=== PATIENT | female | born 1950 | race Caucasian/White ===

== ENCOUNTER → 2018-06-01 11:48 | Outpatient (CLI) | payer MEDICARE, OTHER, SELFPAY ==
--- NOTE | 2018-06-01 | DI.MG.S_ITS ---
BILATERAL DIGITAL SCREENING MAMMOGRAM 3D/2D WITH CAD: 06/01/2018 CLINICAL: Routine screening. Comparison is made to exams dated: 05/30/2017 mammogram, 05/29/2016 mammogram, and 05/01/2015 mammogram - [facility]. The tissue of both breasts is heterogeneously dense. This may lower the sensitivity of mammography. Current study was also evaluated with a Computer Aided Detection (CAD) system. There is 0.6 cm oval asymmetry in the left breast at 6 o'clock in the retroareolar region. No other significant masses, calcifications, or other findings are seen in either breast. IMPRESSION: INCOMPLETE: NEEDS ADDITIONAL IMAGING EVALUATION The 0.6 cm oval asymmetry in the left breast is indeterminate. Additional views with possible ultrasound are recommended. This exam was interpreted at Station ID: [id number]. NOTE: For mammograms, a report in lay terms will be sent to the patient. Approximately 15% of breast malignancies will not be visualized mammographically. In the management of a palpable breast mass, a negative mammogram must not discourage biopsy of a clinically suspicious lesion. Electronically Signed By: Ruben springer/tamara:06/01/2018 13:28:11 letter sent: Additional Imaging Needed ACR BI-RADS Category 0: Incomplete [id number]
== END ==
PROVIDERS: PCP Internal Medicine; Visit Provider Internal Medicine
DX: Z12.31 Encounter for screening mammogram for malignant neoplasm of breast (principal)
CPT/HCPCS: 77063; 77067

== ENCOUNTER → 2018-06-15 08:18 | Outpatient (CLI) | payer MEDICARE, OTHER, SELFPAY ==
--- NOTE | 2018-06-15 | DI.MG.S_ITS ---
UNILATERAL LEFT DIGITAL DIAGNOSTIC MAMMOGRAM 3D/2D WITH ADDITIONAL VIEWS: 06/15/2018 CLINICAL: Additional evaluation requested from prior study. Comparison is made to exams dated: 06/01/2018 mammogram, 05/30/2017 mammogram, and 05/29/2016 mammogram - [facility]. The tissue of left breast is heterogeneously dense. This may lower the sensitivity of mammography. There is a 0.7 cm oval equal density focal asymmetry with circumscribed margins in the left breast at 6 o'clock. No other significant masses or calcifications are seen in the breast. IMPRESSION: INCOMPLETE: NEEDS ADDITIONAL IMAGING EVALUATION Focal asymmetry in the left breast at the 6:00 position. Further evaluation is recommended with ultrasound. Following ultrasound, the patient returned to mammography for additional views with a skin marker. The focal asymmetry corresponded to a skin lesion at the 6:00 position and is benign. This exam was interpreted at Station ID: [id number]. NOTE: For mammograms, a report in lay terms will be sent to the patient. Approximately 15% of breast malignancies will not be visualized mammographically. In the management of a palpable breast mass, a negative mammogram must not discourage biopsy of a clinically suspicious lesion. Electronically Signed By: Ezio higgins/:06/15/2018 15:10:34 letter sent: Need Ultrasound ACR BI-RADS Category 0: Incomplete [id number]
--- NOTE | 2018-06-15 | DI.US.S_ITS ---
LIMITED ULTRASOUND OF LEFT BREAST: 06/15/2018 CLINICAL: Patient returns today to evaluate a focal asymmetry in the left breast. Comparison is made to exams dated: 06/15/2018 mammogram, 06/01/2018 mammogram, 05/30/2017 mammogram, 05/29/2016 mammogram, and 05/01/2015 mammogram - [facility]. Color flow and real-time ultrasound of the left breast lower aspect were performed on the areas of interest. There is 0.5 cm x 0.5 cm x 0.4 cm oval complicated cyst with a septated internal wall in the left breast at 6 o'clock in the retroareolar region. This oval complicated cyst is hypoechoic with a well-defined boundary and posterior acoustic enhancement. Color flow imaging demonstrates that there is no vascularity present. There also is 0.3 cm x 0.2 cm x 0.3 cm oval mass with a circumscribed margin in the left breast at 4 o'clock anterior depth. This oval mass is hypoechoic. Color flow imaging demonstrates that there is no vascularity present. Additionally, there is a benign 0.6 cm x 0.6 cm oval mass within the skin of the left breast at 6 o'clock in the retroareolar region. This oval mass is isoechoic. This correlates with mammography findings. IMPRESSION: PROBABLY BENIGN The 0.5 cm x 0.5 cm x 0.4 cm oval complicated cyst in the left breast at 6 o'clock in the retroareolar region is probably benign. Follow-up ultrasound in 6 months is recommended. The 0.3 cm x 0.2 cm x 0.3 cm oval mass in the left breast at 4 o'clock anterior depth is probably benign. A follow-up ultrasound in 6 months is recommended. The 0.6 cm x 0.6 cm oval mass within the skin of the left breast at 6 o'clock corresponds to a skin mole and is benign. A follow-up ultrasound in 6 months is recommended to demonstrate stability. This exam was interpreted at Station ID: [id number]. Electronically Signed By: Ezio Guzman M.D. ddgenie/:06/19/2018 11:16:38 letter sent: Followup Recommended Ultrasound BI-RADS: 3 Probably benign
== END ==
PROVIDERS: PCP Internal Medicine; Visit Provider Internal Medicine
DX: R92.8 Other abnormal and inconclusive findings on diagnostic imaging of breast (principal); N63.23 Unspecified lump in the left breast, lower outer quadrant; N60.02 Solitary cyst of left breast
CPT/HCPCS: 76642; 77065; G0279

== ENCOUNTER → 2018-09-07 12:34 | Outpatient (CLI) | payer MEDICARE, OTHER, SELFPAY ==
--- NOTE | 2018-09-07 12:36 | DI.US.S_ITS ---
PROCEDURE: US ABDOMEN COMPLETE INDICATIONS: ABD PAIN TECHNIQUE: Real-time scanning was performed of the abdominal and retroperitoneal organs, with image documentation. COMPARISON: [facility], [place], ABDOMEN COMPLETE, 07/15/2010, 15:32. FINDINGS: Liver: Liver is normal in size and homogeneous in echotexture. Gallbladder: The gallbladder wall measures 1.3 mm in diameter. No stones, sludge, pericholecystic fluid, or sonographic Trujillo sign. Biliary ducts: Intrahepatic bile ducts are non-dilated. Extrahepatic bile duct caliber measures 10.6 mm. Normal is 6-7 mm or less in diameter, or 10 mm or less post-cholecystectomy. Pancreas: Visualized portions of the pancreas are sonographically normal. Spleen: Spleen is normal in size and homogeneous in echotexture. Kidneys: Kidneys are normal in size and echotexture. Right kidney measures 10.6 cm long; left kidney measures 10.3 cm long. No hydronephrosis or nephrolithiasis. No solid masses. Aorta: Visualized aorta is normal in caliber at less than 3 cm. Iliacs: Proximal common iliac arteries are normal in caliber at less than 2.5 cm. IVC: Intrahepatic inferior vena cava is patent. Miscellaneous: No free abdominal fluid. IMPRESSION: No cholelithiasis or findings to suggest choledocholithiasis or acute cholecystitis. Dictated by: Debbie Licona M.D. on 09/07/2018 at 14:28 Approved by: Debbie Licona M.D. on 09/07/2018 at 14:29
--- NOTE | 2018-09-07 12:36 | DI.US.S_ITS ---
PROCEDURE: US PELVIC COMPLETE INDICATIONS: PELVIC PAIN TECHNIQUE: Real-time scanning was performed of the pelvic organs, with image documentation. Additional endovaginal scanning was necessary due to incomplete visualization of the adnexal and endometrial structures by transabdominal scanning. COMPARISON: None. FINDINGS: Transabdominal scanning: The kidneys were interrogated on the abdominal ultrasound performed on the same date. Endovaginal scanning: Uterus: Uterus is difficult to visualize given the large left ovarian cystic lesion that measures 5.7 x 2.2 diameters in the sagittal plane on transabdominal examination. The endometrium measures up to 7 mm in diameter. Ovaries: The right ovary is not visualized. The left ovary measures 13.1 x 11.3 x 12.3 cm. There is a 12.1 x 9.6 x 10.9 cm complex cystic mass within the left ovary. This cystic mass contains a combination of anechoic fluid, complex fluid, and lobulated soft tissue with internal vascularity along the margins of the mass. IMPRESSION: Complex cystic mass within the left ovary with lobulated soft tissue along the peripheral margins demonstrating internal vascularity. Although this finding may be associated with a large endometrioma or hemorrhagic cyst, the size and vascular soft tissue is suspicious for ovarian neoplasm. Gynecologic surgical consultation recommended. Dictated by: Debbie Licona M.D. on 09/07/2018 at 14:29 Approved by: Debbie Licona M.D. on 09/07/2018 at 14:33
[2018-09-07 14:23] LABS: Add Manual Diff / Slide Review NO; Basophils Absolute Auto 0 /uL (0-100); Basophils Percent Auto 0.7 % (0-2); Eosinophils Absolute Auto 300 /uL (0-450); Eosinophils Percent Auto 4.8 % (2-4); Hematocrit 39.1 % (36-46); Hemoglobin 12.8 g/dL (12.0-16.0); Lymphocytes Absolute Auto 2600 /uL (1100-4500); Mean Corpuscular HGB Conc 32.8 % (30-36); Mean Corpuscular Hemoglobin 30.6 PG (26-34); Mean Corpuscular Volume 93.2 fL (80-100); Monocytes Absolute Auto 500 /uL (0-900); Monocytes Percent Auto 6.6 % (3-14); Neutrophils Absolute Auto 3500 /uL (1500-7000); Neutrophils Percent Auto 49.9 % (50-75); Platelet Count 304 X10^3/uL (150-400); Red Blood Cell Count 4.19 X10^6/uL (4.0-5.2); Red Cell Distribution Width 13.8 % (11.6-14.8)
[2018-09-07 14:27] LABS: Alanine Aminotransferase 29 IU/L (9-52); Albumin 4.5 g/dL (3.5-5.0); Albumin Globulin Ratio 1.6 (1.0-2.8); Alkaline Phosphatase 66 U/L (38-126); Aspartate Aminotransferase 25 IU/L (14-36); BUN Creatinine Ratio 25.7 (6-22); Bilirubin Total 0.4 mg/dL (0.2-1.3); Blood Urea Nitrogen 18 mg/dL (7-17); Calcium 9.4 mg/dL (8.4-10.2); Carbon Dioxide 26 mmol/L (22-32); Chloride 100 mmol/L (98-107); Estimated Glomerular Filt Rate > 60.0 mL/min (>60); Globulin 2.9 g/dL (1.7-4.1); Glucose 85 mg/dL (80-110); HEMOLYSIS < 15 (0-50); Potassium 4.3 mmol/L (3.4-5.1); Sodium 138 mmol/L (137-145); Total Protein 7.4 g/dL (6.3-8.2)
== END ==
PROVIDERS: PCP Family Medicine; Visit Provider Nurse Practitioner
DX: R10.2 Pelvic and perineal pain (principal); R10.9 Unspecified abdominal pain; N83.292 Other ovarian cyst, left side
CPT/HCPCS: 36415; 76700; 76856; 80053; 85025

== ENCOUNTER → 2018-09-09 13:26 | Outpatient (CLI) | payer MEDICARE, OTHER, SELFPAY ==
[2018-09-09 14:57] LABS: Cancer Antigen 125 62 U/mL (0-35)
[2018-09-12 13:38] LABS: Human HE4 Antigen 64 pmol/L
== END ==
PROVIDERS: PCP Family Medicine; Visit Provider Specialist
DX: N83.9 Noninflammatory disorder of ovary, fallopian tube and broad ligament, unspecified (principal)
CPT/HCPCS: 36415; 86304; 86305

== ENCOUNTER 2018-10-04 09:47 | Emergency (ER) | payer MEDICARE, OTHER, SELFPAY ==
[2018-10-04 09:56] VITALS: BP 160/93; PULSE 97; RESP 20; TEMP 36.9; O2SAT 97; BMI 26.6
--- NOTE | 2018-10-04 10:05 | ED.ABDPAIN ---
HPI - Abdominal Pain General Chief Complaint: Urogenital-Female Stated Complaint: ovarian cyst,abd pain Time Seen by Provider: 10/04/18 09:53 Source: patient and family Mode of arrival: ambulatory Limitations: no limitations History of Present Illness HPI narrative: Patient states that she got up at 2:00 a.m. this morning but could urinate. She tried again several times. She has had a little dribbling but no real urine output. Patient states that she feels like she needs to urinate. She has a lot of pressure. She has had some minor problems with this pain usually has to sit for a period of time but it has been much worse today. Patient states she has a prolapsed bladder/uterus. She has been having normal stools and had a normal bowel movement this morning. She denies any fevers or chills. She denies any nausea or vomiting. He had she has a little bit of flank discomfort but that typically happens when her bladder feels full. Patient denies any burning with urination but does feel very painful when she feels like she needs to. She has not had any some frequency or urgency. She is scheduled for October 21 to have what sounds like a bladder sling as well as some ovarian cyst removed with Dr. Bhagat. Patient takes medication for hypertension, osteoporosis and dyslipidemia, she denies any other major medical issues. Denies any allergies to medications. She is accompanied by her today. Related Data Home Medications Medication Instructions Recorded Confirmed CA PANTOTHENATE/FOLIC ACID/VIT 1 tab PO Q DAY #0 02/07/12 10/01/18 (MULTIVITAMIN) [CALCIUM/VIT D] Q DAY #0 02/07/12 10/01/18 [CoQ10] 100 mg PO QDAY #0 11/21/16 10/01/18 cholecalciferol (vitamin D3) 2,000 unit PO DAILY #0 06/19/17 10/01/18 [Vitamin D3] metoprolol tartrate 25 mg tablet 25 mg PO DAILY tab 09/07/18 10/01/18 rosuvastatin 5 mg tablet 5 mg PO DAILY 09/07/18 10/01/18 Previous Rx's Medication Instructions Recorded valacyclovir 500 mg tablet 500 mg PO .COMPLEX #90 tab 10/01/17 alendronate 70 mg tablet 70 mg PO QWEEK #4 tab 07/14/18 tamsulosin [Flomax] 0.4 mg PO DAILY #7 cap 10/04/18 Allergies Allergy/AdvReac Type Severity Reaction Status Date / Time ciprofloxacin [CIPROFLOXACIN] Allergy Mild HIVES Verified 10/01/18 07:54 nitrofurantoin Allergy Mild RASH Verified 10/01/18 07:54 [NITROFURANTOIN] Penicillins [PENICILLINS] Allergy Mild RASH Verified 10/04/18 10:22 Sulfa (Sulfonamide Allergy Unknown RASH Verified 10/04/18 10:22 Antibiotics) [SULFA (SULFONAMIDE ANTIBIOTICS)] Review of Systems Review of Systems ROS Unobtainable: All systems reviewed & are unremarkable except as noted in HPI and below Constitutional Denies chills and Denies fever(s) Gastrointestinal Gastrointestinal: Reports abdominal pain (Pelvic pain), Denies melena, Denies hematochezia, Denies change in bowel habits, Denies constipation, Denies diarrhea, Denies nausea and Denies vomiting Genitourinary Reports as per HPI, Denies abnormal vaginal bleeding, Denies hematuria, Denies urinary frequency, Reports difficulty voiding, Denies dysuria, Reports prolapse symptoms (Chronically), Reports flank pain (Mild bilateral), Denies urinary incontinence, Denies urinary hesitancy and Denies urinary urgency [facility] Medical History Chronic back pain (Chronic) Fibroids (Chronic) Frequent UTI (Chronic) Hemorrhoid (Chronic) Herpes simplex type 1 infection (Chronic) Osteoarthritis (Chronic) Osteoporosis (Chronic) Prolapsed bladder (Chronic) Recurrent sinusitis (Chronic) Scoliosis (Chronic) Vision disorder (Chronic) Anemia (Resolved) Chicken pox (Resolved) Compression fracture (Resolved ~2014) Hay fever (Resolved) Measles (Resolved) Mumps (Resolved) Surgical History Ankle pain (Resolved ~1977) History of colonoscopy (Resolved) History of foot surgery (Resolved ~2006) History of cataract removal with insertion of prosthetic lens (08/11/13) History of cataract removal with insertion of prosthetic lens (09/01/13) Status post appendectomy (~08/1959) Status post sclerotherapy of varicose veins Status post sclerotherapy of varicose veins (~03/2011) Family History (Updated 09/30/18 @ 20:44 by Janell Wing) Brother Age: 68 High cholesterol Pre-diabetes Child Age: 43 Cardiomyopathy PVC (premature ventricular contraction) Hypothyroidism Child Age: 39 Back problem Father Heart disease Hypertension High cholesterol Mother Diabetes mellitus Heart disease High cholesterol Stroke Mental health problem Sister Age: 96 Autoimmune disease High cholesterol History of removal of both ovaries Fibromyalgia [place]el infection Grandfather Diabetes mellitus Grandmother Mental health problem Dementia Grandfather Cancer Social History household members: spouse Smoking Status: Former smoker alcohol intake: current substance use type: does not use Family History Brother Age: 68 High cholesterol Pre-diabetes Child Age: 43 Cardiomyopathy PVC (premature ventricular contraction) Hypothyroidism Child Age: 39 Back problem Father Heart disease Hypertension High cholesterol Mother Diabetes mellitus Heart disease High cholesterol Stroke Mental health problem Sister Age: 96 Autoimmune disease High cholesterol History of removal of both ovaries Fibromyalgia [place] infection Grandfather Diabetes mellitus Grandmother Mental health problem Dementia Grandfather Cancer Social History household members: spouse Smoking Status: Former smoker alcohol intake: current substance use type: does not use Exam Narrative Exam Narrative: GENERAL: Alert and oriented x three, well-nourished, well-appearing female in moderate distress. HEENT: Head normocephalic, atraumatic, EOMI, pupils reactive, face symmetric, moist mucous membranes NECK: Supple, full range of motion CARDIOVASCULAR: Regular rate and rhythm without murmurs, rubs or gallops. RESPIRATORY: Breath sounds equal bilaterally, no wheezes rales or rhonchi. ABDOMEN: Soft, Patient does feel quite full and is tender suprapubically. Nontender elsewhere. Normoactive bowel sounds all 4 quadrants. No guarding or rebound, rigidity, no mass : No CVA tenderness EXTREMITIES: Normal range of motion, no clubbing or edema. Neurovascularly intact NEUROLOGICAL: Cranial nerves II through XII grossly intact. Moving all extremities SKIN: Warm, dry, no petechiae, no rashes or lesions. Initial Vital Signs Initial Vital Signs: Vital Signs Temperature 98.4 F 10/04/18 09:56 Pulse Rate 97 H 10/04/18 09:56 Respiratory Rate 20 10/04/18 09:56 Blood Pressure 160/93 H 10/04/18 09:56 Pulse Oximetry 97 10/04/18 09:56 Course Orders Ordered: ED Orders 10/04/18 10:05 Urine Microscopic Stat Vital Signs - 8 hr 10/04/18 09:56 10/04/18 10:46 Temperature 98.4 F Pulse Rate 97 H 78 Respiratory Rate 20 18 Blood Pressure 160/93 H 152/87 H Pulse Oximetry 97 96 MDM - Abdominal Pain Lab Data Attestation: I reviewed the patient's lab results. Lab Results 10/04/18 Range/Units 10:05 Urine RBC None seen (0-5/HPF) Urine WBC None seen (0-5/HPF) Urine Bacteria None seen (None) Ur Culture Indicated? Cult not indicated Point of care testing: Urine Dip Bedside Urine Glucose Negative Bedside Urine Bilirubin - Negative Bedside Urine Ketone - Negative Urine Specific Letha 1.015 Bedside Urine Occult Blood - Negative Bedside Urine pH 6.0 Bedside Urine Protein - Negative Bedside Urine Urobilinogen - Negative Bedside Urine Nitrite - Negative Bedside Urine Leukocytes - Negative Esterase MDM Narrative Medical decision making narrative: Dolan catheter was placed in the room patient had immediate relief with urine output. Patient had an output of amost 1000cc. Patient feels much better. We discussed if she continues to have issues with urinary retention even after surgery she definitely needs further workup. Urine was sent for microscopic after point of care urine was negative Patient has follow-up with Dr. Bhagat. Encouraged to contact her but also given referral for Urology. Patient offered [facility] urology but prefers to have a more local Urology through [facility]. Patient given prescription for Flomax take for the next week she was has to started today. She occasionally has constipation but not recently. We did discuss a stool softener if she is having any, patient was given Education for her catheter. We also discussed reasons to return to the emergency department signs and symptoms to watch for. Patient was comfortable with this plan. Discharge Plan Departure Patient Disposition: Home Clinical Impression: Acute urinary retention Discharge Date/Time: 10/04/18 10:49 Interventions: ED Discharge Assessment Last Done: 10/04/18 10:46 Instructions: How to Care for Your Dolan Catheter -- Female, DI for Urinary Retention in Women Activity Restrictions/Additional Instructions: Follow-up with Dr. Bhagat and Urology in the 5-7 days. Call for an appointment. Take Flomax once daily until gone. You may continue home medications as prescribed. Return to the emergency department for fevers greater than 100.4 F, worsening abdominal pain, persistent vomiting, back or flank pain, if you are having any difficulty with urine output from the Dolan catheter, if it seems block door there is no urine output or if is very dark or has large blood clots. Prescriptions: New tamsulosin [Flomax] 0.4 mg capsule 0.4 mg PO DAILY Qty: 7 RF: 0 No Action CA PANTOTHENATE/FOLIC ACID/VIT (MULTIVITAMIN) 1 tab PO Q DAY Qty: 0 RF: 0 [CALCIUM/VIT D] Q DAY Qty: 0 RF: 0 [CoQ10] 100 mg PO QDAY Qty: 0 RF: 0 cholecalciferol (vitamin D3) [Vitamin D3] 2,000 UNIT capsule 2,000 unit PO DAILY Qty: 0 RF: 0 valacyclovir 500 mg tablet 500 mg PO .COMPLEX Qty: 90 RF: 0 alendronate [Fosamax] 70 mg tablet 70 mg PO QWEEK Qty: 4 RF: 0 rosuvastatin 5 mg tablet 5 mg PO DAILY RF: 0 metoprolol tartrate 25 mg tablet 25 mg PO DAILY RF: 0 Referrals: Asha Crenshaw MD [Non-Staff] - Sanjuana Paulson ARNP [Primary Care Provider] -
[2018-10-04 10:17] LABS: Bacteria Urine None Seen; RBC Urine None Seen (0-5/HPF); WBC Urine None Seen (0-5/HPF)
[2018-10-04 10:32] LABS: Culture Indicated Urine Cult Not Indicated
[2018-10-04 10:46] VITALS: BP 152/87; PULSE 78; RESP 18; O2SAT 96
--- NOTE | 2018-10-04 10:46 | PC.NURSE ---
Education provided on catheter care and how to empty, clean and change from large overnight bag to daytime leg bag.
== END 2018-10-04 10:49 | disposition home or self-care (01) ==
PROVIDERS: Emergency Provider Emergency Medicine; PCP Nurse Practitioner
DX: R33.8 Other retention of urine (principal)
CPT/HCPCS: 51701; 51798; 81003; 81015; 99283

== ENCOUNTER 2018-10-16 06:35 | Inpatient (IN) | payer MEDICARE, OTHER, SELFPAY ==
[2018-09-23 08:31] VITALS: BMI 26.4
[2018-10-14] MEDS: methylPREDNISolone 125 MG/2 ML VIAL IV (12:30)
[2018-10-16] VITALS (17 sets, daily range): BP systolic 114–145; BP diastolic 55–82; PULSE 73–114; RESP 12–28; TEMP 36.1–37.3; O2SAT 94–99; BMI 26.4
--- NOTE | 2018-10-16 | PATH_ITS ---
[place] Accession Number: [id number] . 01 Material submitted: . TUBE/OVARY - RIGHT TUBE/OVARY, LEFT TUBE/OVARY . 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 Contralateral ovary with no evidence of neoplasm. Bilateral fallopian tubes with simple benign paratubal cysts. Negative for invasive malignancy. BFI10/21/2018 . 02 Comment: As part of routine quality lab assoc, Dr. 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 . 02 Electronically signed: . Hawk Prieto MD, PhD, Pathologist NPI- [id number] . 01 Gross description: . Received in formalin, labeled right tube and ovary, left tube + ovary, is an ovary (1.5 x 0.8 x 0.6 cm) with an attached fimbriated fallopian tube (length-6.5 cm, diameter-0.3 cm) and an opened ovarian cyst (10.8 x 8.3 x 0.6 cm) with an attached fimbriated fallopian tube (length-5.5 cm, diameter-0.3 cm). The ovary has vital-yellow smooth flat serosa and dimas-white solid firm parenchyma with corpus albicans identified. The ovarian cyst has vital-pink smooth shiny flat serosa. The lining is vital-white and predominantly covered in dimas-white spongy tissue. No normal ovarian parenchyma is identified. The fallopian tubes have vital-pink and dimas smooth shiny serosa and dimas unremarkable lumens. Turbid brown fluid is mixed with the formalin in the container. Section code: (A1) ovary, business center representative serial sections; (A2) attached fallopian tube, business center representative serial sections; (A3) fimbria, bivalved, entirely submitted; (A4-A8) ovarian cyst, business center representative serial sections; (A9) attached fallopian tube, business center representative serial sections; (A10) fimbria bivalved, entirely submitted. Note: Per the requisition, this is a split sample with tissue sent to cytology for analysis. ([id number]) /MRV . 02 Pathologist provided ICD-10: D39.10 . 02 CPT . 494052 Performed at: [address] [facility] [address], [place], [place] [id number] MD Ezio Llanos MD Phone: [phone] Performed at: 02 [facility] [address] [place], [place] [id number] MD Arpita Aguirre MD Phone: [phone]
--- NOTE | 2018-10-16 07:24 | PM.PREOP ---
Pre-operative Note Interval Note History & Physical reviewed/Exam performed by Physician: Yes Changes to H&P: No
[2018-10-16] MEDS: LACTATED RINGERS 1,000 ML 100 ML IV ×4 (07:25→22:44)
--- NOTE | 2018-10-16 07:30 | PM.PREOP ---
Pre-operative Note Interval Note History & Physical reviewed/Exam performed by Physician: Yes Changes to H&P: Yes H&P completed within 30 days and has changed as indicated here:: Patient with urinary retention had Dolan placed in the emergency room 10 days ago
--- NOTE | 2018-10-16 07:44 | SUR.PREOP ---
Dr Bhagat aware of pts allergy history to PCN. Elected to move forward with Ancef 2gm IV for procedure.
[2018-10-16] MEDS: CEFAZOLIN 2 GM/100 ML FROZ.PIGGY IV (07:48)
--- NOTE | 2018-10-16 08:16 | SUR.OPER ---
Lithotomy on padded OR bed, head on pillow, arms secured on padded arm boards at <90 degrees abduction. Legs secured in padded yellow fins stirrups.
[2018-10-16] MEDS: BUPIVACAINE 0.5% W/ EPI (PF) VIAL 30 ML INJ (08:26)
--- NOTE | 2018-10-16 08:31 | PATH_ITS ---
Note [facility] Accession Number: [id number] TESTS RESULT FLAG UNITS REF RANGE LAB Clinician Provided Cytology Information No. of containers..01 Other (Miscellaneous) 01 PELVIC FLUID DIAGNOSIS: 02 PELVIC FLUID INCONCLUSIVE. THIS INTERPRETATION INCLUDES EVALUATION OF A CELL BLOCK. SHEETS OF ATYPICAL CELLS, FAVOR REACTIVE MESOTHELIAL ORIGIN. IMMUNOHISTOCHEMISTRY STUDIES PENDING; RESULTS WILL BE REPORTED AN ADDENDUM. Pathologist ICD10: 02 N83.202 FINAL DIAGNOSIS: Pelvic Fluid (Cytospin Slide and Cell Block Section): Negative for malignant cells. Reactive mesothelial cells present by immunohistochemistry studies. . COMMENT: Immunohistochemistry stains are performed with the following results. . RESULTS: Calretinin: Scattered cells positive. WT1: Positive. Jonny-EP4: Negative. CK7: Positive. CYRUS: Positive. P40: Negative. PAX8: Negative. . The atypical cells are immunoposiive for WT1, CK7, and CYRUS, with scattered cells immunopositive for calretinin. The atypical cells are immunonegative for Jonny-EP4, p40 and PAX8. These findings support a mesothelial origin for these cells groups. The control tissue stained appropriately. . * This test was developed and its performance characteristics determined by [facility]. It has not been cleared or approved by the U.S. Food and Drug Administration. The FDA has determined that such clearance or approval is not necessary. This test is used for clinical purposes. It should not be regarded as investigational or for research. MRV/10/23/2018 Addendum Electronically Signed by Lilly Pillai MD, Pathologist 02 Lilly Pillai MD, Pathologist NPI- [id number] Josep Pink, Electronics Utility Worker ([facility]) 01 10 CC, YELLOW, CLEAR /LCS FLAG LEGEND: L-Low Normal,H-High Normal,LL-Alert Low,HH-Alert High <-Panic Low,>-Panic High,A-Abnormal,AA-Critical Abnormal Performed at: 01 =Z [facility] [address], [place] [address] Ezio Llanos MD, 02 [facility] [place] [id number] [place] [id number] Arpita Aguirre MD, Specimen Comment: A duplicate report has been generated due to demographic updates. Performed at: 01 [facility] [address], [place], [place] [id number] MD Ezio Llanos MD Phone: [phone]
--- NOTE | 2018-10-16 08:37 | SUR.OPER ---
Pt. came into OR with Dolan in, then Dr. Bhagat replaced it with a new Dolan on the middle of procedure.
[2018-10-16] MEDS: SODIUM CHLORIDE 0.9% FLUSH 10 ML IV (09:15)
--- NOTE | 2018-10-16 10:41 | PM.OP.1 ---
Operative Date/Time/Diagnoses Date of procedure: 10/16/18 Time of procedure: 10:41 Pre-op diagnosis: Large ovarian cyst and symptomatic partial uterovaginal prolapse Post-op diagnosis: same Procedure & Clinicians Procedure: Laparoscopy with bilateral salpingo-oophorectomy, anterior and posterior repair with sacrospinous ligament fixation. Same procedure as scheduled: Yes Indications: Large ovarian cyst did appear to be causing pelvic pain and urinary retention. Patient with symptomatic uterovaginal prolapse cystocele predominant. Surgeon: Karen Bhagat Click Yes if Unassisted: Yes Anesthesia Type: General Operative Notes Findings: Large benign-appearing left ovarian cyst that had over a 1000 cc of yellow brown thick fluid, normal uterus right tube and ovary. Normal bowel surface. Normal liver edge. No scar tissue or internal hernias. No evidence of carcinoma. Closure Type: primary Specimen(s): other (Bilateral tubes and ovaries) Applied: catheter and other (Vaginal packing) Estimated Blood Loss (mL): 50 Blood products transfused: none Procedure in detail: Patient was brought to the operating room where she was [facility] stirrups and prepped and draped in the usual sterile fashion. A check system was reviewed prior to the beginning of the case. Pulsatile stockings were in place and functional throughout the case. Warming was in place. 2 g of Ancef were in prior to beginning of the case. A Dolan catheter was placed. The areas of the trocars on the abdomen were injected with 0.5% Marcaine with epinephrine. An incision was made in the umbilicus and the incision carried down the fascial layer with blunt dissection. The fascia was incised transversely and held with 0 Vicryl suture. The perineum was entered bluntly and the Brown cannula was placed in the abdomen and the abdomen insufflated with CO2. 5 mm trocars were placed in right left lower quadrant under direct visualization with no damage to internal structures. Cell washings were obtained and sent for cytology. The left infundibulopelvic ligament was cauterized with the PK generator. Sequential bites taken along the broad ligament. The tube and utero-ovarian ligament were cauterized and cut freeing the left tube and ovary intact. The same procedure was performed on the right freeing the right tube and ovary which were brought up intact through the Brown cannula. The large Endo-Catch bag was placed in the abdomen and the left tube and ovary were placed in the bag and brought up to the umbilical incision. The fluid was drained from the cyst, approximately a 1000 cc of yellow brown thick fluid. The bag was removed with the cyst and remaining fluid without spillage of any fluid into the abdomen. The abdomen was irrigated adequate hemostasis was noted. The fascial layer of the umbilical incision was closed with 0 Vicryl suture x2. The skin was closed with 4 0 Monocryl. The procedure was switched to vaginal. A dilute solution of 1% lidocaine with epinephrine was injected over this cystocele. An incision was made over the cystocele and the incision dissected laterally. A pursestring suture was used to decrease the caliber of the cystocele with 2-0 Vicryl suture. Plicating sutures were made over the cystocele. A small amount of the vaginal excessive tissue was removed with scissors. The incision was closed with 2-0 Vicryl suture. The area over the rectocele was injected with a dilute solution of 1% lidocaine with epinephrine. An incision was made over the rectocele and enterocele with the scalpel. The dissection was undertaken laterally. Prolene suture with the Capio passer was placed through the uterosacral ligament on the right side and sutured to the underside of the cervix. After checking the suture was possibly through the rectum so the suture was removed and replaced. 0 Vicryl suture was used to plicate over the rectocele. A finger was placed in the rectum to be sure there were no sutures placed through the rectal mucosa. The uterosacral suture was tightened down and the vaginal incision was closed with 2-0 Vicryl suture. Vaginal packing was placed in the vagina and the Dolan left in place. Counts of instruments and sponges were correct. The patient went to recovery room in good condition. Complications: none Condition: stable Disposition: observation Plan for aftercare: Vaginal packing will be left in for 6 hours. Will be evaluated for removal and if able to urinate and feels well will to be discharged home later today otherwise tomorrow.
[2018-10-16] MEDS: MEPERIDINE 100 MG/ML INJ 25 MG IV (11:13)
[2018-10-16] MEDS: fentaNYL 100 MCG/2 ML INJ 50 MCG IV (11:16)
[2018-10-16] MEDS: ONDANSETRON 4 MG/2 ML INJ IV (11:23)
[2018-10-16] MEDS: RACEPINEPHRINE 0.5 ML NEB INH (12:25)
--- NOTE | 2018-10-16 12:30 | SUR.PHASEI ---
Pt transferred to room 210 via bed with all belongings. Report called to ELMER Aponte prior to transfer. Pt's last vital signs and assessment stable; see flowsheet documentation for details. Upon arrival to room 210 pt was awake and did not appear to be in distress. Her vital signs were stable, but she began to c/o nausea. Pt's Mane was at the bedside, but the floor RN Fay was not present. This RN left the room to get floor RN. Pt's came running from the room saying that the pt couldn't breath. Upon arrival to the room the pt was dyspneic with audible stridor and was in distress. Pt's HR was in the 120s and irregular to palpation. 02 Sats in the 70s; 6 L NC applied. Rapid response called. RT and MD to bedside. Acute episode resolved spontaneously within a few minutes. PT described prior to the episode she felt tingling in her feet, a wave of nausea, and the difficulty breathing. While RT and MD at bedside pt experienced another episode. MD orders given to RT for respiratory treatment. MD and RT left the room. PT experienced another episode prior to respiratory treatment arriving. Rapid respose called again. RT to bedside with treatment. MD to bedside; 125 mg IV solumedrol ordered and given. Rapid response team RN assumed care of pt at the bedside.
--- NOTE | 2018-10-16 12:53 | PM.CN ---
History of Present Illness Date Patient Seen: 10/16/18 Chief complaint: [id number] PELVIC *OPB* Reason for consult: postop stridor Requesting provider: Karen Bhagat Narrative: Patient is a 68-year-old female status post elective laparoscopic bilateral salpingo-oophorectomy, anterior and posterior repair with ligament fixation. Shortly after arrival to the floor, patient developed acute stridor but which resolved on its own. Subsequently she had 2 more episodes of stridor within a short period of time. Second episode was treated with racemic epinephrine nebulizer and 3rd episode was treated with 125 mg IV Solu-Medrol. During these episodes patient appeared acute anxious, hypertensive and tachycardic but with definite stridorous breath sounds. She stated her throat was feeling scratchy or swollen. Also has been complaining of some tingling in her distal lower extremities. Also had received dose of Demerol in the recovery room for tremors. Patient is on rosuvastatin and metoprolol succinate daily which she took usual doses yesterday evening. She denies history of cardiac disease, asthma or COPD. EKG after 3rd stridor episode showed sinus tachycardia, PVC, mild likely rate related ST depressions in V3 to V6. [facility] Medical History (Updated 10/06/18 @ 08:41 by Yuliana Horan RN) Cystocele (Acute) Rectocele (Acute) Chronic back pain (Chronic) Fibroids (Chronic) Frequent UTI (Chronic) Hemorrhoid (Chronic) Herpes simplex type 1 infection (Chronic) Osteoarthritis (Chronic) Osteoporosis (Chronic) Prolapsed bladder (Chronic) Recurrent sinusitis (Chronic) Scoliosis (Chronic) Vision disorder (Chronic) Anemia (Resolved) Chicken pox (Resolved) Compression fracture (Resolved ~2014) Hay fever (Resolved) Measles (Resolved) Mumps (Resolved) Surgical History Ankle pain (Resolved ~1977) History of colonoscopy (Resolved) History of foot surgery (Resolved ~2006) History of cataract removal with insertion of prosthetic lens (08/11/13) History of cataract removal with insertion of prosthetic lens (09/01/13) Status post appendectomy (~08/1959) Status post sclerotherapy of varicose veins Status post sclerotherapy of varicose veins (~03/2011) Family History Brother Age: 68 High cholesterol Pre-diabetes Child Age: 43 Cardiomyopathy PVC (premature ventricular contraction) Hypothyroidism Child Age: 39 Back problem Father Heart disease Hypertension High cholesterol Mother Diabetes mellitus Heart disease High cholesterol Stroke Mental health problem Sister Age: 96 Autoimmune disease High cholesterol History of removal of both ovaries Fibromyalgia [place] infection Grandfather Diabetes mellitus Grandmother Mental health problem Dementia Grandfather Cancer Social History household members: spouse Smoking Status: Former smoker alcohol intake: current substance use type: does not use Social History household members: spouse Smoking Status: Former smoker alcohol intake: current substance use type: does not use Meds Home Medications Medication Instructions Recorded Confirmed Type calcium carb-D3-mag [id number] 500 mg PO DAILY #0 02/07/12 10/16/18 History multivitamin 1 cap PO DAILY #0 02/07/12 10/16/18 History coenzyme Q10 100 mg PO DAILY #0 11/21/16 10/16/18 History cholecalciferol (vitamin D3) 2,000 unit PO DAILY #0 06/19/17 10/16/18 History [Vitamin D3] valacyclovir 500 mg tablet 500 mg PO .COMPLEX #90 tab 10/01/17 10/16/18 Rx alendronate 70 mg tablet 70 mg PO QWEEK #4 tab 07/14/18 10/16/18 Rx rosuvastatin 5 mg tablet 5 mg PO DAILY 09/07/18 10/16/18 History metoprolol succinate 25 mg PO DAILY 10/15/18 10/15/18 History Allergies Allergy/AdvReac Type Severity Reaction Status Date / Time Penicillins [PENICILLINS] Allergy Mild RASH Verified 10/16/18 07:14 Sulfa (Sulfonamide Allergy Unknown RASH Verified 10/16/18 07:14 Antibiotics) [SULFA (SULFONAMIDE ANTIBIOTICS)] Review of Systems Review of Systems All systems reviewed & are unremarkable except as noted in HPI and below Exam Vital Signs (past 8 hours): - 10/16/18 07:24 10/16/18 10:29 10/16/18 10:34 Temperature 97.3 F L 97.0 F L Pulse Rate 83 86 86 Respiratory Rate 15 14 15 Blood Pressure 133/81 135/64 139/70 Pulse Oximetry 95 96 94 10/16/18 10:39 10/16/18 10:44 10/16/18 10:59 Temperature 97.5 F L Pulse Rate 82 83 75 Respiratory Rate 16 15 12 Blood Pressure 138/73 137/65 131/71 Pulse Oximetry 94 98 94 10/16/18 11:14 10/16/18 11:25 10/16/18 11:40 Temperature 98.4 F Pulse Rate 73 81 77 Respiratory Rate 18 14 13 Blood Pressure 145/72 H 123/70 129/55 L Pulse Oximetry 95 99 99 10/16/18 11:45 10/16/18 12:50 Temperature 98.0 F Pulse Rate 84 91 H Respiratory Rate 12 16 Blood Pressure 131/69 144/82 H Pulse Oximetry 99 96 Oxygen Delivery Method Room Air Oxygen Flow Rate 2 Narrative Exam Narrative: General: Alert anxious appearing cooperative female with stridor HEENT: Pupils equal. No swelling of the face, lips or tongue Neck: No soft tissue swelling, trachea midline Lungs: Even breath sounds bilaterally, No wheezing Heart: Tachycardic with regular rhythm, no murmur Abdomen: Nondistended, soft Extremities: No edema Neurological: Alert and oriented, nonfocal Skin: No hives or other rash Assessment & Plan Assessment & Plan narrative: This is a 68-year-old female status post major gynecological surgery under general anesthesia who developed episodes of postop stridor. 1. Stridor -possibly related to endotracheal tube placement, patient without hives to suggest an anaphylactic reaction -received racemic epi x1 and Solu-Medrol 125 mg IV x1 -EKG: Sinus tachycardia, PVC, mild likely rate related ST depression V3 to V6 -received metoprolol succinate 25 mg x1 for acute hypertension and tachycardia -continue home meds of metoprolol succinate ER 25 mg HS and rosuvastatin 5 mg HS -repeat racemic epinephrine as needed for recurrent stridor -transfer to ICU for closer monitoring -CBC, troponin pending
[2018-10-16] MEDS: METOPROLOL ER 25 MG TABLET PO (13:03)
[2018-10-16 13:10] LABS: Troponin I < 0.012 ng/mL (0.01-0.034)
--- NOTE | 2018-10-16 13:25 | PC.NURSE ---
received pt from floor s/p gyne surgery with stridorous breathing- she had received iv solumedrol and racemic epi for this stridor- did have 12 lead ekg prior to transfer to ICU- she is alert/oriented and rates pain at a 2/10, lap incision x 3 cdi- NSR with occ PVC. room air spo2 96% , LR infusing
--- NOTE | 2018-10-16 13:41 | PC.NURSE ---
1153 Pt to floor via bed from ACCOUNT SOLUTIONS ANALYST Anushka and notified this RN that she was ready to transfer Pt into Acute Care. During hand-off report Pt's breathing became stridorous and Pt stated she could not breathe. Pt Spouse-Mane was present in the room for this event. Rapid Response was called and attended by Dr. Tan, RT, REGIONAL ACCOUNT EXECUTIVE-all other occurances and sequence of events are documented on the Rapid Response form. Dr. Cantu and Dr. Bhagat were also present in the room and it was agreed upon that the Pt should be transferred to the ICU for closer observation. Pt had 3 total events of stridor and was given solumedrol and racemic epinephine per Dr. Tan. Pt was transferred to ICU with Spouse and all belongings.
[2018-10-16] MEDS: HYDROCODONE/ACET 5/325 TABLET 2 TAB PO (14:59)
--- NOTE | 2018-10-16 16:05 | CM.DANOTE ---
Discharge Planning/Care Management DCP: assessment: case received, EMR reviewed and discussed in Team Rounds. Pt is a 68 year old female who admitted this morning for a planned gynecological surgery: surgeon: Dr. Bhagat. Payer: Medicare and [employer]. PCP: Sanjuana Paulson. Dr. Bhagat noted in the op report that she expected pt would recover after a few hours and go home later this evening. Pt arrived to room 210 after this surgery and with Rapid Response called x 2 for post op stridor: pt with a transfer to the ICU setting and is now in ICU 106. Hospitalist team is consulting, Dr. Tan saw pt and his note is available now. UR RN Ezio reviewed admission status during this process and confirms INPT admission status: 10/16. P: see pt tomorrow to continue the d/c planning assessment process and follow accordingly. CM Discharge Assessment Start: 10/16/18 16:03 Freq: Status: Active Protocol: Document 10/16/18 16:04 ITV (Rec: 10/16/18 16:05 ITV [id number]) Discharge Planning Assessment Advance Directives? Yes: Health Care Directive; DPOA Advance Directives on File Yes History Provided By Medical Record Prior Living Arrangements House Household Members spouse Review Status In Process Pre-Anesthesia Assessment Start: 09/23/18 08:31 Freq: Status: Complete Protocol: Document 09/23/18 08:31 CAB (Rec: 09/23/18 08:40 CAB [id number]) Pre-Anesthesia Assessment Patient Information Reviewed Via Chart Review Primary Care Provider Sanjuana Paulson Medical Clearance Received Yes Specialist Seen Investment Banking Manager Primary Language Beninese Hemodialysis Rn Required No Height 166.37 cm Weight 73.028 kg Body Mass Index (BMI) 26.4 Hx Anesthesia Reactions No Anesthesia Review Requested No Contracting Engineer No alcohol intake current alcohol intake frequency 0-2 drinks per day Smoking Status Former smoker how long ago did patient quit smoking Quit 1973 Substance Use Type does not use Pain Present Pain Reported Comment Abdominal Patient is completely paralyzed or No completely immobile Mental Status Oriented to own ability Is patient on oxygen? No Hx Sleep Apnea No Currently Taking a Beta Jose Yes: Metoprolol Anti-Coagulant Therapy No Has a Binder Cutter Hand No Cardiac Testing No Hx Pacemaker/ICD No Pacemaker Rep Required? No Cardiac Clearance Received Not Applicable dysphagia No Genitourinary Symptoms Change in Urinary Stream Difficulty Urinating Urinary Catheter Present No Hx Urinary Self Catheterization No Diabetes No Patient No Lactating No Presence of External or Internal Medical Yes: Bilateral eye lens Devices Marital Status Lives With spouse Patient Discharge Plan Description Return Home Health Care Proxy/Next of Kin Mane () Emergency Contact Name Mane () Advance Directives? Yes Advance Directives on File Yes Power of Academic Advisement Director Yes Power of Academic Advisement Director Name Mane ()
[2018-10-16] MEDS: DOCUSATE 250 MG CAPSULE PO (20:32)
--- NOTE | 2018-10-16 22:04 | PC.NURSE ---
2200- Patient is resting quietly in bed. No distress noted. Patient does desat while sleeping using 2l cannula for sleep. Patient denies pain. Voiding clear yellow urine. VS all wnl. No stridor this shife. Student nurse assessment reviewed and verified by this RN.
[2018-10-17] VITALS: BP 104/49; PULSE 75; RESP 16; TEMP 37.5; O2SAT 94
[2018-10-17] MEDS: HYDROCODONE/ACET 5/325 TABLET 2 TAB PO ×2 (01:50→06:23)
[2018-10-17 05:00] VITALS: BP 107/55; PULSE 72; RESP 18; TEMP 36.9; O2SAT 94
[2018-10-17 05:24] LABS: Add Manual Diff / Slide Review NO; Basophils Absolute Auto 0 /uL (0-100); Basophils Percent Auto 0.2 % (0-2); Eosinophils Absolute Auto 0 /uL (0-450); Hematocrit 31.2 % (36-46); Hemoglobin 10.8 g/dL (12.0-16.0); Lymphocytes Absolute Auto 1300 /uL (1100-4500); Lymphocytes Percent Auto 15.1 % (25-40); Mean Corpuscular HGB Conc 34.7 % (30-36); Mean Corpuscular Hemoglobin 32.1 PG (26-34); Mean Corpuscular Volume 92.6 fL (80-100); Monocytes Absolute Auto 500 /uL (0-900); Neutrophils Absolute Auto 6700 /uL (1500-7000); Neutrophils Percent Auto 78.7 % (50-75); Platelet Count 265 X10^3/uL (150-400); Red Blood Cell Count 3.36 X10^6/uL (4.0-5.2); Red Cell Distribution Width 13.6 % (11.6-14.8); White Blood Cell Count 8.5 X10^3/uL (4.5-11.0)
--- NOTE | 2018-10-17 08:49 | PC.NURSE ---
asher dc'd and oz dc'd per Dr. Bhagat. pt up ambulating in ICU halls. slight dizziness when first OOB. ate breakfast without nausea
[2018-10-17 09:00] VITALS: BP 133/72; PULSE 75; RESP 16; TEMP 36.8; O2SAT 94
[2018-10-17] MEDS: METOPROLOL ER 25 MG TABLET PO (09:14)
[2018-10-17] MEDS: DOCUSATE 250 MG CAPSULE PO (09:14)
--- NOTE | 2018-10-17 11:21 | PM.DS.1 ---
History of Present Illness Date Patient Seen: 10/17/18 Time Patient Seen: 11:21 Chief complaint: [id number] PELVIC *OPB* Narrative: Patient was admitted for laparoscopic BSO for large right ovarian cyst and anterior and posterior repair with sacrospinous ligament fixation for symptomatic partial uterovaginal prolapse cystocele predominant Discharge Providers Date of admission: 10/16/18 06:35 Discharge Date: 10/17/18 Primary care physician: DONNIE Jara Consults: 10/16/18 12:31 Consult to Hospitalist Service Routine Comment: Consulting Provider: [facility] Reason for consultation: airway constriciton Has provider been notified: Yes Discharge provider: Karen Bhagat MD Summary Discharge Diagnosis: Large benign-appearing right ovarian cyst, cystocele and rectocele with mild uterine prolapse. Patient with episodes of stridor postoperative that required epinephrine nebulizer and 125 mg of IV Solu-Medrol with no further complications likely complication from endotracheal tube Exam Vital Signs (past 8 hours): - 10/17/18 05:00 10/17/18 09:00 Temperature 98.5 F 98.3 F Pulse Rate 72 75 Respiratory Rate 18 16 Blood Pressure 107/55 L 133/72 Pulse Oximetry 94 94 Oxygen Delivery Method Nasal Cannula Oxygen Flow Rate 2 Narrative Exam Narrative: Patient's lungs are clear to auscultation percussion. Heart is regular rate and rhythm no S3-S4 or murmurs. Abdomen is soft, nondistended, not significantly tender. Incisions are clean dry and intact with some ecchymosis around the umbilical trocar site. Vaginal packing was removed without difficulty. She has minimal vaginal bleeding. She passed her bladder trial after removal of her Dolan catheter. Extremities without edema and nontender. Objective Labs Result Diagrams: 10/17/18 04:54 Labs: Laboratory Results - last 24 hr 10/16/18 10/16/18 10/17/18 12:20 13:03 04:54 WBC 8.5 RBC 3.36 L Hgb 10.8 L Hct 31.2 L MCV 92.6 MCH 32.1 MCHC 34.7 RDW 13.6 Plt Count 265 Neut % (Auto) 78.7 H Lymph % (Auto) 15.1 L [place] % (Auto) 6.0 Eos % (Auto) 0.0 L Baso % (Auto) 0.2 Neut # (Auto) 6700 Lymph # (Auto) 1300 [place] # (Auto) 500 Eos # (Auto) 0 Baso # (Auto) 0 Troponin I < 0.012 Nasal Screen MRSA (PCR) Negative for mrsa Discharge Plan Discharge Plan Patient Disposition: Home Discharge Med Rec/Prescriptions Prescriptions: New hydrocodone-acetaminophen 5-325 mg Tablet 1 tab PO Q4HR PRN (Reason: Pain, Severe (7-10)) Qty: 20 RF: 0 Continued multivitamin Capsule 1 cap PO DAILY Qty: 0 RF: 0 calcium carb-D3-mag [id number] [phone] fq-uind-ke-mg Tablet 500 mg PO DAILY Qty: 0 RF: 0 coenzyme Q10 100 mg Capsule 100 mg PO DAILY Qty: 0 RF: 0 cholecalciferol (vitamin D3) [Vitamin D3] 2,000 UNIT capsule 2,000 unit PO DAILY Qty: 0 RF: 0 valacyclovir 500 mg tablet 500 mg PO .COMPLEX Qty: 90 RF: 0 alendronate [Fosamax] 70 mg tablet 70 mg PO QWEEK Qty: 4 RF: 0 rosuvastatin 5 mg tablet 5 mg PO DAILY RF: 0 metoprolol succinate 25 mg Tablet Extended Release 24 Hr 25 mg PO DAILY RF: 0 Follow up/Referrals: Sanjuana Paulson ARNP [Primary Care Provider] - Karen Bhagat MD [Physician] - 1 Week Provider Discharge Instructions Diet: Regular Activity: Nothing in vagina or lifting over 20 lb for 6 weeks Skin/Wound/Dressing Care Report to your healthcare provider any signs of infection, such as:: chills, fever, increased pain and unusual redness Dressing: May remove Band-Aids in 24 hours leave Steri-Strips on can get wet just pat dry Visit Report/Discharge Packet Instructions: DI for Oophorectomy, DI for Laparoscopy Stand Alone Forms: Surgery Discharge Discharge Data Primary Care Provider: Sanjuana Paulson Attending Provider: Karen Bhagat Admit Date/Time: 10/16/18 06:35 Discharge Interventions Interventions: Discharge assessment Last Done: 10/17/18 11:14
--- NOTE | 2018-10-17 14:33 | CM.DPC ---
DCP: continued: case discussed in Team Rounds. Dr. Bhagat was here and cleared pt for a d/c to home. Went to check in with pt but she had already left for home.
== END 2018-10-17 11:29 | disposition home or self-care (01) | DRG 983 ==
LOC: OR 06:41 → AC 06:41 → ICU 14:23 → AC 14:54 → ICU 14:55
PROVIDERS: Internal Medicine; Admitting Provider Specialist; PCP Nurse Practitioner; Visit Provider Specialist
PROC: 0UT24ZZ Resection of Bilateral Ovaries, Percutaneous Endoscopic Approach (ICD-10-PCS; CPT 58661; principal; 2018-10-16 07:45)
PROC: 0UT74ZZ Resection of Bilateral Fallopian Tubes, Percutaneous Endoscopic Approach (ICD-10-PCS; 2018-10-16 07:45)
DX: R06.1 Stridor (principal); N83.202 Unspecified ovarian cyst, left side; N81.4 Uterovaginal prolapse, unspecified; R00.0 Tachycardia, unspecified
CPT/HCPCS: 36415; 57260; 57282; 58661; 84484; 85025; 87797; 88307; 93005; 94640; J0330; J0690; J1100; J2175; J2405; J2704; J2930; J3010

== ENCOUNTER → 2018-12-14 08:32 | Outpatient (CLI) | payer MEDICARE, OTHER, SELFPAY ==
[2018-10-16 13:07] VITALS: BMI 26.4
--- NOTE | 2018-12-14 08:37 | DI.US.S_ITS ---
ULTRASOUND OF LEFT BREAST: 12/14/2018 CLINICAL: 6 month follow-up of cysts. Comparison is made to exams dated: 06/15/2018 ultrasound, 06/15/2018 mammogram, 06/01/2018 mammogram, 05/30/2017 mammogram, and 05/29/2016 mammogram - [facility]. Color flow and real-time ultrasound of the left breast were performed. Mead scale images of the real-time examination were reviewed. There is 0.4 cm x 0.6 cm x 0.3 cm oval complicated cyst with a septated internal wall in the left breast at 6 o'clock in the retroareolar region. This oval complicated cyst is hypoechoic with a well-defined boundary and posterior acoustic enhancement. This abnormality is not significantly changed. Color flow imaging demonstrates that there is no vascularity present. The previously described 0.3 cm x 0.2 cm x 0.3 cm oval mass with a circumscribed margin in the left breast at 4 o'clock anterior depth is no longer seen and is compatible with a benign process. IMPRESSION: PROBABLY BENIGN The 0.4 cm x 0.6 cm x 0.3 cm oval complicated cyst in the left breast at 6 o'clock in the retroareolar region appears stable and is probably benign. A follow-up bilateral mammogram and an ultrasound in 6 months is recommended to demonstrate stability. This exam was interpreted at Station ID: [id number]. Electronically Signed By: Ruben Webb M.D. aty/:12/14/2018 10:53:13 letter sent: Followup Recommended Ultrasound BI-RADS: 3 Probably benign
[2018-12-14 09:59] LABS: Alanine Aminotransferase 18 IU/L (9-52); Albumin 4.4 g/dL (3.5-5.0); Albumin Globulin Ratio 1.5 (1.0-2.8); Alkaline Phosphatase 63 U/L (38-126); Aspartate Aminotransferase 23 IU/L (14-36); BUN Creatinine Ratio 21.4 (6-22); Bilirubin Total 0.4 mg/dL (0.2-1.3); Blood Urea Nitrogen 15 mg/dL (7-17); Calcium 9.9 mg/dL (8.4-10.2); Carbon Dioxide 27 mmol/L (22-32); Chloride 103 mmol/L (98-107); Cholesterol 202 mg/dL (140-199); Estimated Glomerular Filt Rate > 60.0 mL/min (>60); Glucose 100 mg/dL (80-110); HDL Cholesterol 53 mg/dL (40-60); HEMOLYSIS < 15 (0-50); LDL Cholesterol Calculated 102 mg/dL (<100); Potassium 4.7 mmol/L (3.4-5.1); Sodium 142 mmol/L (137-145); Total Protein 7.4 g/dL (6.3-8.2); Triglycerides 235 mg/dL (35-150)
== END ==
LOC: US 08:33 → LAB 08:33
PROVIDERS: PCP Nurse Practitioner; Visit Provider Nurse Practitioner
DX: M81.0 Age-related osteoporosis without current pathological fracture (principal); R92.8 Other abnormal and inconclusive findings on diagnostic imaging of breast; E78.00 Pure hypercholesterolemia, unspecified; E78.5 Hyperlipidemia, unspecified
CPT/HCPCS: 36415; 76642; 77080; 80053; 80061

== ENCOUNTER 2019-05-03 08:15 | Outpatient (RCR) | payer MEDICARE, OTHER, SELFPAY ==
[2018-10-16 13:07] VITALS: BMI 26.4
--- NOTE | 2019-03-19 16:30 | PT.OPPOC ---
Current Diagnoses Cystocele, midline (03/19/19) Pelvic and perineal pain (03/19/19) Visit Care Team Role Provider Type DONNIE Jara Primary Care Provider Advanced Heat Treat Technician Specialty: Family Practice Address: [address] [place] [address], [id number] Email: [email or web address] Karen Bhagat MD Attending Provider Physician Specialty: STRANDING MACHINE OPERATOR HELPER Address: [address] [place] [address], [id number] Email: [email or web address] Plan Of Care PT-OP-T Assessment and Plan Start: 03/18/19 18:03 Freq: Status: Active Protocol: Document 03/19/19 10:33 LRN (Rec: 03/19/19 11:27 LRN [id number]) Physical Therapy Assessment Rehab Potential Rehabilitation Potential Good Evaluation Complexity Number of Personal Factors/Comorbidities 1-2 Number of Body Systems Impaired 4 or More Clinical Presentation at Evaluation Unstable Impairments Impairments Activity Tolerance,Functional Mobility,Posture,ROM,Strength, Transfers Goals Four Impairment Decreased endurance of PF muscles Short Term Goal (STG) Pt will be able to hold a PF contraction 6 sec's prior to palpable or fatigue notable per EMG biofeedback. STG Duration 06/17/19 Professor Of Counseling Goal (LTG) Pt will be able to hold a PF contraction 9 or more secs prior to fatigue with minimal onset of urinary leakage. LTG Duration 07/10/19 Three Impairment PF weakness with urinary leakage. Short Term Goal (STG) Improve PF strength to 2/5 STG Duration 04/16/19 Professor Of Counseling Goal (LTG) Improve PF strength to 3/5 with pt report of decrease in feeling of pressure in the lower abdominal region. LTG Duration 07/10/19 Two Impairment Poor coordination of PF contraction. Short Term Goal (STG) Improve awareness of being able to perform a PF contraction STG Duration 04/02/19 Alf Goal (LTG) Pt will be able to perform a PF contraction with minimal use of gluteal or abdominal muscles. LTG Duration 06/17/19 One Impairment Lacks self care HEP Alf Goal (LTG) Pt will be independent with a home exercise program. LTG Duration 07/10/19 Assessment Summary Assessment Pt presents with visible cystocele (grade 2) and rectocele (grade 3) in supine with cough. She has very weak PF muscles and will benefit from skilled physical therapy for pelvic floor rehab for urinary incontinence and for posterior PF weakness and education to decrease her episodes of constipation and for treatment of hips and low back as it relates to her PF dysfunction. Physical Therapy Plan Frequency and Duration Frequency of Treatment 1x/Week Plan of Care Start Date 03/19/19 Plan of Care End Date 07/10/19 Therapeutic Interventions Therapeutic Interventions Home Exercise Program,Joint Mobilizations,Manual Therapy, Neuromuscular Re-education, Patient/Caregiver Education, Self-Care/Home Management,Soft Tissue Mobilization, Therapeutic Exercises Modalities Biofeedback,Electric Stimulation Next Visit Focus/Plan Next Note Type Treatment Note Next Visit Plan Review of Bladder Diary and discuss changes as appropriate . Discuss dietary needs for to improve bowel level of constipation. Educate pt in PF anatomy and start biofeedback training with EMG biofeedback assessment. Progress pt with deep breathing and anterior and posterior PF strengthening program. Plan of Care Dates Plan of Care Start Date 03/19/19 Plan of Care End Date 07/10/19
--- NOTE | 2019-03-19 16:30 | PT.OIE ---
Current Diagnoses Cystocele, midline (03/19/19) Pelvic and perineal pain (03/19/19) Past Medical History (Last Updated 10/06/18 @ 08:41 by Yuliana Horan RN) Anemia (Resolved) Chicken pox (Resolved) Chronic back pain (Chronic) Compression fracture (Resolved ~2014) Cystocele (Acute) Fibroids (Chronic) Frequent UTI (Chronic) Hay fever (Resolved) Hemorrhoid (Chronic) Herpes simplex type 1 infection (Chronic) Measles (Resolved) Mumps (Resolved) Osteoarthritis (Chronic) Osteoporosis (Chronic) Prolapsed bladder (Chronic) Rectocele (Acute) Recurrent sinusitis (Chronic) Scoliosis (Chronic) Vision disorder (Chronic) Past Surgical History (Last Updated 03/04/19 @ 15:20 by Karen Bhagat MD) Ankle pain (Resolved ~1977) H/O bilateral salpingo-oophorectomy (Resolved ~10/2018) History of cataract removal with insertion of prosthetic lens (08/11/13) History of cataract removal with insertion of prosthetic lens (09/01/13) History of colonoscopy (Resolved) History of foot surgery (Resolved ~2006) Status post appendectomy (~08/1959) Status post sclerotherapy of varicose veins Status post sclerotherapy of varicose veins (~03/2011) Visit Care Team Role Provider Type DONNIE Jara Primary Care Provider Advanced Cop Examiner Specialty: Family Practice Address: [address] [place] [address] Email: [email or web address] Karen Bhagat MD Attending Provider Physician Specialty: COATING MACHINE FEEDER Address: [address] [place] [address] Email: [email or web address] Physical Therapy Initial Evaluation PT-OP-A Visit Information Start: 03/18/19 18:03 Freq: Status: Active Protocol: Document 03/19/19 10:33 LRN (Rec: 03/19/19 11:27 LRN [id number]) Out-Patient Physical Therapy Visit Information Visit Information Visit Type Initial Evaluation Visit Start Time 10:33 Visit Stop Time 11:25 Total Visit Minutes 52 Visit Number 1 Number of PELLET PRESS OPERATOR Visits 0 Evaluation Information Evaluation Date 03/19/19 Precautions Precautions Osteoporosis High HR, on blood pressure medications Bladder and Rectal lift - 10/16 PT-OP-B Current Condition Start: 03/18/19 18:03 Freq: Status: Active Protocol: Document 03/19/19 10:33 LRN (Rec: 03/19/19 11:27 LRN [id number]) Current Condition History of Current Condition Onset Date 02/16/19 Current Complaints Pressure discomfort in abdomen and urinary leakage. History of Current Condition Had been on vacation and had constipation and was experiencing a heaviness and pressure discomfort, not really a pain. Also has urinary frequency and leakage with sneezing, coughing and with sit to stand. Wears a pantiliner when going outside of home, not in the home. Dr Estefany Bhagat checked and found had a little prolapse of bladder and rectum. She reports no constipation, has daily BMs. Sometimes BM every other day with small chunks, otherwise sausage like. Has hemorrhoids . Prior Treatments and Tests October 16, 2018: Bladder and Rectal lift. Had to wear a catheter 2 weeks before the surgery because she couldn't urinate (had lots of pain and urgency, drained 1000 cc or urine). Future Testing and Treatments Planned None, no follow up MD appts. Developmental History Developmental History 10/2018 Large cyst removed from ovaries and had bladder and rectal lift due to lower abdominal pain. The abdominal pain has come back and noticed it present when needing to have a bowel movement. said there is a little prolapse and therefore referred to PT. Treatment Goals Patient/Caregiver Goals Pt goal is to get rid of pressure pain and control the leakage. Prior Functional Status Baseline Function- ADL's Independent Baseline Function- Mobility Independent Baseline Function- Gait No urinary leakage Baseline Function- Other No fear of traveling Current Functional Impairments (Reported) Functional Limitations- ADL's Must stop frequently with bathroom stops when travelling . Urinary leakage with change of positions, an urge, sneezing or coughing. Can't delay urinating with an urge. Functional Limitations- Mobility/Gait Wears liner going outside of home. Personal Factors Other Personal Factors That May Effect High HR with blood pressure Therapy/Recovery medication, Osteoporosis/ Osteopenia with compression fracture in lower mid back - . Arthritis of the neck with pain. PT-OP-C Subjective Start: 03/18/19 18:03 Freq: Status: Active Protocol: Document 03/19/19 10:33 LRN (Rec: 03/19/19 11:27 LRN [id number]) Patient Questionnaires Pelvic Pain and Urgency/Frequency Patient Symptom Scale Pelvic Pain Score 13 OP-PT Pain Assessment Pain Assessment Grid Paper Pain Assessment Grid Completed Yes Location Low back Pain Location Details L lower mid and low back Intensity 4 Scale Used Numeric (1 - 10) Description Aching Frequency Intermittent Pain Duration Pain with prolonged standing or awkward sitting, change position to relieve Pain Aggravating Factors Bending Other Pain Aggravating Factors Wearing bra Lower abdominal Pain Location Details Across lower abdomen Intensity 2 Scale Used Numeric (1 - 10) Description Pressure Pain Duration Morning on waking for 3-4 hours Other Pain Alleviating Factors Bowel and bladder movement PT-OP-I Pelvic Floor Start: 03/18/19 18:03 Freq: Status: Active Protocol: Document 03/19/19 10:33 LRN (Rec: 03/23/19 18:12 LRN [id number]) Pelvic Floor Assessment Urine Urinary Symptoms Urge Sensation Other Urinary Symptoms Lower pelvic discomfort. Sometimes a slow or hesitant urinary stream Leakage Size Large Leakage Cause Cough,Sneeze,Urge Nocturia voids 2x during the night Urine Pad Type Panty Liner Prolapse Cystocele Grade 1 Rectocele Grade 1 Perineal Descent Resting Absent Bearing Present Contraction Ability Voluntary Contraction Weak Manual Muscle Testing Left 1 Manual Muscle Testing Right 1 Manual Muscle Testing Anterior 0 Manual Muscle Testing Posterior 2 Muscle Endurance (Seconds) 3 Number of Quick Contractions In 10 6 Seconds Comments Pelvic Floor Comments Pt's tissues of the perineum are dry and moderately red and irritated. Her PF muscle contractions are slow and sluggish. No upward lift is felt. PT-OP-J Posture/Palpation/Skin Start: 03/18/19 18:03 Freq: Status: Active Protocol: Document 03/19/19 10:33 LRN (Rec: 03/23/19 18:12 LRN [id number]) Posture Evaluation Position Standing Evaluation View All positions Head/C-Spine Posture Forward Head T-Spine Posture Increased Kyphosis L-Spine Posture Flattened Shoulder Posture (R) Elevated Pelvis Posture Posterior Tilted,(R) Iliac Crest Superior Knee Posture (L) Genu Valgus,(R) Genu Valgus Ankle/Foot Posture (R) Calcaneal Eversion,(R) Forefoot Abducted Comments Posture Comments Scoliosis of the spine with upper apex on left, lower apex on right PT-OP-K Range of Motion Start: 03/18/19 18:03 Freq: Status: Active Protocol: Document 03/19/19 10:33 LRN (Rec: 03/23/19 18:12 LRN [id number]) Lumbar Spine Range of Motion Lumbar Spine Active Degrees Flexion 98 Extension 5 Lateral Flexion Left 12 Lateral Flexion Right 12 Hip Goniometric Range of Motion Hip Right Passive Testing Position Supine Abduction 45 Internal Rotation 20 External Rotation 75 Left Passive Abduction 40 Internal Rotation 10 External Rotation 75 Hip ROM Limitations Comments PSLR is WNL bilaterally PT-OP-M Strength Start: 03/18/19 18:03 Freq: Status: Active Protocol: Document 03/19/19 10:33 LRN (Rec: 03/23/19 18:12 LRN [id number]) Hip Strength Hip Manual Muscle Testing Right External Rotation 3 Fair Comments Hip strength is 5/5 except hip ER above Left Adduction 4+ Good+ External Rotation 3 Fair Comments Hip strength is 5/5 except those listed above. PT-OP-T Assessment and Plan Start: 03/18/19 18:03 Freq: Status: Active Protocol: Document 03/19/19 10:33 LRN (Rec: 03/19/19 11:27 LRN [id number]) Physical Therapy Assessment Rehab Potential Rehabilitation Potential Good Evaluation Complexity Number of Personal Factors/Comorbidities 1-2 Number of Body Systems Impaired 4 or More Clinical Presentation at Evaluation Unstable Impairments Impairments Activity Tolerance,Functional Mobility,Posture,ROM,Strength, Transfers Goals Four Impairment Decreased endurance of PF muscles Short Term Goal (STG) Pt will be able to hold a PF contraction 6 sec's prior to palpable or fatigue notable per EMG biofeedback. STG Duration 06/17/19 Research Nurse Practitioner Goal (LTG) Pt will be able to hold a PF contraction 9 or more secs prior to fatigue with minimal onset of urinary leakage. LTG Duration 07/10/19 Three Impairment PF weakness with urinary leakage. Short Term Goal (STG) Improve PF strength to 2/5 STG Duration 04/16/19 Research Nurse Practitioner Goal (LTG) Improve PF strength to 3/5 with pt report of decrease in feeling of pressure in the lower abdominal region. LTG Duration 07/10/19 Two Impairment Poor coordination of PF contraction. Short Term Goal (STG) Improve awareness of being able to perform a PF contraction STG Duration 04/02/19 Research Nurse Practitioner Goal (LTG) Pt will be able to perform a PF contraction with minimal use of gluteal or abdominal muscles. LTG Duration 06/17/19 One Impairment Lacks self care HEP Research Nurse Practitioner Goal (LTG) Pt will be independent with a home exercise program. LTG Duration 07/10/19 Assessment Summary Assessment Pt presents with visible cystocele (grade 2) and rectocele (grade 3) in supine with cough. She has very weak PF muscles and will benefit from skilled physical therapy for pelvic floor rehab for urinary incontinence and for posterior PF weakness and education to decrease her episodes of constipation and for treatment of hips and low back as it relates to her PF dysfunction. Physical Therapy Plan Frequency and Duration Frequency of Treatment 1x/Week Plan of Care Start Date 03/19/19 Plan of Care End Date 07/10/19 Therapeutic Interventions Therapeutic Interventions Home Exercise Program,Joint Mobilizations,Manual Therapy, Neuromuscular Re-education, Patient/Caregiver Education, Self-Care/Home Management,Soft Tissue Mobilization, Therapeutic Exercises Modalities Biofeedback,Electric Stimulation Next Visit Focus/Plan Next Note Type Treatment Note Next Visit Plan Review of Bladder Diary and discuss changes as appropriate . Discuss dietary needs for to improve bowel level of constipation. Educate pt in PF anatomy and start biofeedback training with EMG biofeedback assessment. Progress pt with deep breathing and anterior and posterior PF strengthening program.
--- NOTE | 2019-03-19 16:35 | PT.OPPOC ---
Current Diagnoses Muscle weakness (generalized) (03/19/19) Cystocele, midline (03/19/19) Pelvic and perineal pain (03/19/19) Other symptoms and signs involving the musculoskeletal system (03/19/19) Visit Care Team Role Provider Type DONNIE Jara Primary Care Provider Advanced Benefits Clerk Specialty: Family Practice Address: [address] [place] [address] Email: [email or web address] Karen Bhagat MD Attending Provider Physician Specialty: PASSENGER BRAKEMAN Address: [address] [place] [address], [id number] Email: [email or web address] Plan Of Care PT-OP-T Assessment and Plan Start: 03/18/19 18:03 Freq: Status: Active Protocol: Document 03/19/19 10:33 LRN (Rec: 03/19/19 11:27 LRN [id number]) Physical Therapy Assessment Rehab Potential Rehabilitation Potential Good Evaluation Complexity Number of Personal Factors/Comorbidities 1-2 Number of Body Systems Impaired 4 or More Clinical Presentation at Evaluation Unstable Impairments Impairments Activity Tolerance,Functional Mobility,Posture,ROM,Strength, Transfers Goals Four Impairment Decreased endurance of PF muscles Short Term Goal (STG) Pt will be able to hold a PF contraction 6 sec's prior to palpable or fatigue notable per EMG biofeedback. STG Duration 06/17/19 Nursery Teacher Goal (LTG) Pt will be able to hold a PF contraction 9 or more secs prior to fatigue with minimal onset of urinary leakage. LTG Duration 07/10/19 Three Impairment PF weakness with urinary leakage. Short Term Goal (STG) Improve PF strength to 2/5 STG Duration 04/16/19 Nursery Teacher Goal (LTG) Improve PF strength to 3/5 with pt report of decrease in feeling of pressure in the lower abdominal region. LTG Duration 07/10/19 Two Impairment Poor coordination of PF contraction. Short Term Goal (STG) Improve awareness of being able to perform a PF contraction STG Duration 04/02/19 Nursery Teacher Goal (LTG) Pt will be able to perform a PF contraction with minimal use of gluteal or abdominal muscles. LTG Duration 06/17/19 One Impairment Lacks self care HEP Alf Goal (LTG) Pt will be independent with a home exercise program. LTG Duration 07/10/19 Assessment Summary Assessment Pt presents with visible cystocele (grade 2) and rectocele (grade 3) in supine with cough. She has very weak PF muscles and will benefit from skilled physical therapy for pelvic floor rehab for urinary incontinence and for posterior PF weakness and education to decrease her episodes of constipation and for treatment of hips and low back as it relates to her PF dysfunction. Physical Therapy Plan Frequency and Duration Frequency of Treatment 1x/Week Plan of Care Start Date 03/19/19 Plan of Care End Date 07/10/19 Therapeutic Interventions Therapeutic Interventions Home Exercise Program,Joint Mobilizations,Manual Therapy, Neuromuscular Re-education, Patient/Caregiver Education, Self-Care/Home Management,Soft Tissue Mobilization, Therapeutic Exercises Modalities Biofeedback,Electric Stimulation Next Visit Focus/Plan Next Note Type Treatment Note Next Visit Plan Review of Bladder Diary and discuss changes as appropriate . Discuss dietary needs for to improve bowel level of constipation. Educate pt in PF anatomy and start biofeedback training with EMG biofeedback assessment. Progress pt with deep breathing and anterior and posterior PF strengthening program. Plan of Care Dates Plan of Care Start Date 03/19/19 Plan of Care End Date 07/10/19
--- NOTE | 2019-03-19 16:35 | PT.OIE ---
Current Diagnoses Muscle weakness (generalized) (03/19/19) Cystocele, midline (03/19/19) Pelvic and perineal pain (03/19/19) Other symptoms and signs involving the musculoskeletal system (03/19/19) Past Medical History (Last Updated 10/06/18 @ 08:41 by Yuliana Horan RN) Anemia (Resolved) Chicken pox (Resolved) Chronic back pain (Chronic) Compression fracture (Resolved ~2014) Cystocele (Acute) Fibroids (Chronic) Frequent UTI (Chronic) Hay fever (Resolved) Hemorrhoid (Chronic) Herpes simplex type 1 infection (Chronic) Measles (Resolved) Mumps (Resolved) Osteoarthritis (Chronic) Osteoporosis (Chronic) Prolapsed bladder (Chronic) Rectocele (Acute) Recurrent sinusitis (Chronic) Scoliosis (Chronic) Vision disorder (Chronic) Past Surgical History (Last Updated 03/04/19 @ 15:20 by Karen Bhagat MD) Ankle pain (Resolved ~1977) H/O bilateral salpingo-oophorectomy (Resolved ~10/2018) History of cataract removal with insertion of prosthetic lens (08/11/13) History of cataract removal with insertion of prosthetic lens (09/01/13) History of colonoscopy (Resolved) History of foot surgery (Resolved ~2006) Status post appendectomy (~08/1959) Status post sclerotherapy of varicose veins Status post sclerotherapy of varicose veins (~03/2011) Visit Care Team Role Provider Type DONNIE Jara Primary Care Provider Advanced Registered Nurses Specialty: Family Practice Address: [address] [place] [address] Email: [email or web address] Karen Bhagat MD Attending Provider Physician Specialty: EMERGENCY SERVICES PROFESSIONAL Address: [address] [place] [address], [id number] Email: [email or web address] Physical Therapy Initial Evaluation PT-OP-A Visit Information Start: 03/18/19 18:03 Freq: Status: Active Protocol: Document 03/19/19 10:33 LRN (Rec: 03/19/19 11:27 LRN [id number]) Out-Patient Physical Therapy Visit Information Visit Information Visit Type Initial Evaluation Visit Start Time 10:33 Visit Stop Time 11:25 Total Visit Minutes 52 Visit Number 1 Number of BRICK LOADER Visits 0 Evaluation Information Evaluation Date 03/19/19 Precautions Precautions Osteoporosis High HR, on blood pressure medications Bladder and Rectal lift - 10/16 PT-OP-B Current Condition Start: 03/18/19 18:03 Freq: Status: Active Protocol: Document 03/19/19 10:33 LRN (Rec: 03/19/19 11:27 LRN [id number]) Current Condition History of Current Condition Onset Date 02/16/19 Current Complaints Pressure discomfort in abdomen and urinary leakage. History of Current Condition Had been on vacation and had constipation and was experiencing a heaviness and pressure discomfort, not really a pain. Also has urinary frequency and leakage with sneezing, coughing and with sit to stand. Wears a pantiliner when going outside of home, not in the home. Dr Estefany Bhagat checked and found had a little prolapse of bladder and rectum. She reports no constipation, has daily BMs. Sometimes BM every other day with small chunks, otherwise sausage like. Has hemorrhoids . Prior Treatments and Tests October 16, 2018: Bladder and Rectal lift. Had to wear a catheter 2 weeks before the surgery because she couldn't urinate (had lots of pain and urgency, drained 1000 cc or urine). Future Testing and Treatments Planned None, no follow up MD appts. Developmental History Developmental History 10/2018 Large cyst removed from ovaries and had bladder and rectal lift due to lower abdominal pain. The abdominal pain has come back and noticed it present when needing to have a bowel movement. said there is a little prolapse and therefore referred to PT. Treatment Goals Patient/Caregiver Goals Pt goal is to get rid of pressure pain and control the leakage. Prior Functional Status Baseline Function- ADL's Independent Baseline Function- Mobility Independent Baseline Function- Gait No urinary leakage Baseline Function- Other No fear of traveling Current Functional Impairments (Reported) Functional Limitations- ADL's Must stop frequently with bathroom stops when travelling . Urinary leakage with change of positions, an urge, sneezing or coughing. Can't delay urinating with an urge. Functional Limitations- Mobility/Gait Wears liner going outside of home. Personal Factors Other Personal Factors That May Effect High HR with blood pressure Therapy/Recovery medication, Osteoporosis/ Osteopenia with compression fracture in lower mid back - . Arthritis of the neck with pain. PT-OP-C Subjective Start: 03/18/19 18:03 Freq: Status: Active Protocol: Document 03/19/19 10:33 LRN (Rec: 03/19/19 11:27 LRN [id number]) Patient Questionnaires Pelvic Pain and Urgency/Frequency Patient Symptom Scale Pelvic Pain Score 13 OP-PT Pain Assessment Pain Assessment Grid Paper Pain Assessment Grid Completed Yes Location Low back Pain Location Details L lower mid and low back Intensity 4 Scale Used Numeric (1 - 10) Description Aching Frequency Intermittent Pain Duration Pain with prolonged standing or awkward sitting, change position to relieve Pain Aggravating Factors Bending Other Pain Aggravating Factors Wearing bra Lower abdominal Pain Location Details Across lower abdomen Intensity 2 Scale Used Numeric (1 - 10) Description Pressure Pain Duration Morning on waking for 3-4 hours Other Pain Alleviating Factors Bowel and bladder movement PT-OP-I Pelvic Floor Start: 03/18/19 18:03 Freq: Status: Active Protocol: Document 03/19/19 10:33 LRN (Rec: 03/23/19 18:12 LRN [id number]) Pelvic Floor Assessment Urine Urinary Symptoms Urge Sensation Other Urinary Symptoms Lower pelvic discomfort. Sometimes a slow or hesitant urinary stream Leakage Size Large Leakage Cause Cough,Sneeze,Urge Nocturia voids 2x during the night Urine Pad Type Panty Liner Prolapse Cystocele Grade 1 Rectocele Grade 1 Perineal Descent Resting Absent Bearing Present Contraction Ability Voluntary Contraction Weak Manual Muscle Testing Left 1 Manual Muscle Testing Right 1 Manual Muscle Testing Anterior 0 Manual Muscle Testing Posterior 2 Muscle Endurance (Seconds) 3 Number of Quick Contractions In 10 6 Seconds Comments Pelvic Floor Comments Pt's tissues of the perineum are dry and moderately red and irritated. Her PF muscle contractions are slow and sluggish. No upward lift is felt. PT-OP-J Posture/Palpation/Skin Start: 03/18/19 18:03 Freq: Status: Active Protocol: Document 03/19/19 10:33 LRN (Rec: 03/23/19 18:12 LRN [id number]) Posture Evaluation Position Standing Evaluation View All positions Head/C-Spine Posture Forward Head T-Spine Posture Increased Kyphosis L-Spine Posture Flattened Shoulder Posture (R) Elevated Pelvis Posture Posterior Tilted,(R) Iliac Crest Superior Knee Posture (L) Genu Valgus,(R) Genu Valgus Ankle/Foot Posture (R) Calcaneal Eversion,(R) Forefoot Abducted Comments Posture Comments Scoliosis of the spine with upper apex on left, lower apex on right PT-OP-K Range of Motion Start: 03/18/19 18:03 Freq: Status: Active Protocol: Document 03/19/19 10:33 LRN (Rec: 03/23/19 18:12 LRN [id number]) Lumbar Spine Range of Motion Lumbar Spine Active Degrees Flexion 98 Extension 5 Lateral Flexion Left 12 Lateral Flexion Right 12 Hip Goniometric Range of Motion Hip Right Passive Testing Position Supine Abduction 45 Internal Rotation 20 External Rotation 75 Left Passive Abduction 40 Internal Rotation 10 External Rotation 75 Hip ROM Limitations Comments PSLR is WNL bilaterally PT-OP-M Strength Start: 03/18/19 18:03 Freq: Status: Active Protocol: Document 03/19/19 10:33 LRN (Rec: 03/23/19 18:12 LRN [id number]) Hip Strength Hip Manual Muscle Testing Right External Rotation 3 Fair Comments Hip strength is 5/5 except hip ER above Left Adduction 4+ Good+ External Rotation 3 Fair Comments Hip strength is 5/5 except those listed above. PT-OP-Q Treatments Start: 03/18/19 18:03 Freq: Status: Active Protocol: Document 03/19/19 10:33 LRN (Rec: 03/26/19 17:42 LRN [id number]) Self-Care/Home Management Treatment Education Patient Education Home Exercise Program Other Education Educated pt in use of Bladder diary and discussed pt tracking over the next 7 days. Activities Self-Care/Home Management Activities Issued and reviewed HEP: Menggel ex's for Quick Flicks, Long holds and Aggrevators. PT-OP-T Assessment and Plan Start: 03/18/19 18:03 Freq: Status: Active Protocol: Document 03/19/19 10:33 LRN (Rec: 03/19/19 11:27 LRN [id number]) Physical Therapy Assessment Rehab Potential Rehabilitation Potential Good Evaluation Complexity Number of Personal Factors/Comorbidities 1-2 Number of Body Systems Impaired 4 or More Clinical Presentation at Evaluation Unstable Impairments Impairments Activity Tolerance,Functional Mobility,Posture,ROM,Strength, Transfers Goals Four Impairment Decreased endurance of PF muscles Short Term Goal (STG) Pt will be able to hold a PF contraction 6 sec's prior to palpable or fatigue notable per EMG biofeedback. STG Duration 06/17/19 Account Manager Relief Goal (LTG) Pt will be able to hold a PF contraction 9 or more secs prior to fatigue with minimal onset of urinary leakage. LTG Duration 07/10/19 Three Impairment PF weakness with urinary leakage. Short Term Goal (STG) Improve PF strength to 2/5 STG Duration 04/16/19 Long-Term Goal (LTG) Improve PF strength to 3/5 with pt report of decrease in feeling of pressure in the lower abdominal region. LTG Duration 07/10/19 Two Impairment Poor coordination of PF contraction. Short Term Goal (STG) Improve awareness of being able to perform a PF contraction STG Duration 04/02/19 Long-Term Goal (LTG) Pt will be able to perform a PF contraction with minimal use of gluteal or abdominal muscles. LTG Duration 06/17/19 One Impairment Lacks self care HEP Account Manager Relief Goal (LTG) Pt will be independent with a home exercise program. LTG Duration 07/10/19 Assessment Summary Assessment Pt presents with visible cystocele (grade 2) and rectocele (grade 3) in supine with cough. She has very weak PF muscles and will benefit from skilled physical therapy for pelvic floor rehab for urinary incontinence and for posterior PF weakness and education to decrease her episodes of constipation and for treatment of hips and low back as it relates to her PF dysfunction. Physical Therapy Plan Frequency and Duration Frequency of Treatment 1x/Week Plan of Care Start Date 03/19/19 Plan of Care End Date 07/10/19 Therapeutic Interventions Therapeutic Interventions Home Exercise Program,Joint Mobilizations,Manual Therapy, Neuromuscular Re-education, Patient/Caregiver Education, Self-Care/Home Management,Soft Tissue Mobilization, Therapeutic Exercises Modalities Biofeedback,Electric Stimulation Next Visit Focus/Plan Next Note Type Treatment Note Next Visit Plan Review of Bladder Diary and discuss changes as appropriate . Discuss dietary needs for to improve bowel level of constipation. Educate pt in PF anatomy and start biofeedback training with EMG biofeedback assessment. Progress pt with deep breathing and anterior and posterior PF strengthening program.
--- NOTE | 2019-03-30 16:44 | PT.OTN ---
Current Diagnoses Muscle weakness (generalized) (03/30/19) Cystocele, midline (03/30/19) Pelvic and perineal pain (03/30/19) Other symptoms and signs involving the musculoskeletal system (03/30/19) Physical Therapy Treatment Note PT-OP-A Visit Information Start: 03/18/19 18:03 Freq: Status: Active Protocol: Document 03/30/19 09:04 LRN (Rec: 03/30/19 09:48 LRN [id number]) Out-Patient Physical Therapy Visit Information Visit Information Visit Type Treatment Note Visit Start Time 09:04 Visit Stop Time 09:43 Total Visit Minutes 39 Visit Number 2 Number of PLANER HAND Visits 0 Evaluation Information Evaluation Date 03/19/19 Precautions Precautions Osteoporosis High HR, on blood pressure medications Bladder and Rectal lift - 10/16 PT-OP-B Current Condition Start: 03/18/19 18:03 Freq: Status: Active Protocol: Document 03/19/19 10:33 LRN (Rec: 03/19/19 11:27 LRN [id number]) Current Condition History of Current Condition Onset Date 02/16/19 Current Complaints Pressure discomfort in abdomen and urinary leakage. History of Current Condition Had been on vacation and had constipation and was experiencing a heaviness and pressure discomfort, not really a pain. Also has urinary frequency and leakage with sneezing, coughing and with sit to stand. Wears a pantiliner when going outside of home, not in the home. Dr Estefany Bhagat checked and found had a little prolapse of bladder and rectum. She reports no constipation, has daily BMs. Sometimes BM every other day with small chunks, otherwise sausage like. Has hemorrhoids . Prior Treatments and Tests October 16, 2018: Bladder and Rectal lift. Had to wear a catheter 2 weeks before the surgery because she couldn't urinate (had lots of pain and urgency, drained 1000 cc or urine). Future Testing and Treatments Planned None, no follow up MD appts. Developmental History Developmental History 10/2018 Large cyst removed from ovaries and had bladder and rectal lift due to lower abdominal pain. The abdominal pain has come back and noticed it present when needing to have a bowel movement. said there is a little prolapse and therefore referred to PT. Treatment Goals Patient/Caregiver Goals Pt goal is to get rid of pressure pain and control the leakage. Prior Functional Status Baseline Function- ADL's Independent Baseline Function- Mobility Independent Baseline Function- Gait No urinary leakage Baseline Function- Other No fear of traveling Current Functional Impairments (Reported) Functional Limitations- ADL's Must stop frequently with bathroom stops when travelling . Urinary leakage with change of positions, an urge, sneezing or coughing. Can't delay urinating with an urge. Functional Limitations- Mobility/Gait Wears liner going outside of home. Personal Factors Other Personal Factors That May Effect High HR with blood pressure Therapy/Recovery medication, Osteoporosis/ Osteopenia with compression fracture in lower mid back - . Arthritis of the neck with pain. PT-OP-C Subjective Start: 03/18/19 18:03 Freq: Status: Active Protocol: Document 03/30/19 09:04 LRN (Rec: 03/30/19 09:48 LRN [id number]) OP-PT Subjective Patient Comments Patient Comments Did bladder diary. PT-OP-I Pelvic Floor Start: 03/18/19 18:03 Freq: Status: Active Protocol: Document 03/19/19 10:33 LRN (Rec: 03/23/19 18:12 LRN [id number]) Pelvic Floor Assessment Urine Urinary Symptoms Urge Sensation Other Urinary Symptoms Lower pelvic discomfort. Sometimes a slow or hesitant urinary stream Leakage Size Large Leakage Cause Cough,Sneeze,Urge Nocturia voids 2x during the night Urine Pad Type Panty Liner Prolapse Cystocele Grade 1 Rectocele Grade 1 Perineal Descent Resting Absent Bearing Present Contraction Ability Voluntary Contraction Weak Manual Muscle Testing Left 1 Manual Muscle Testing Right 1 Manual Muscle Testing Anterior 0 Manual Muscle Testing Posterior 2 Muscle Endurance (Seconds) 3 Number of Quick Contractions In 10 6 Seconds Comments Pelvic Floor Comments Pt's tissues of the perineum are dry and moderately red and irritated. Her PF muscle contractions are slow and sluggish. No upward lift is felt. PT-OP-J Posture/Palpation/Skin Start: 03/18/19 18:03 Freq: Status: Active Protocol: Document 03/19/19 10:33 LRN (Rec: 03/23/19 18:12 LRN [id number]) Posture Evaluation Position Standing Evaluation View All positions Head/C-Spine Posture Forward Head T-Spine Posture Increased Kyphosis L-Spine Posture Flattened Shoulder Posture (R) Elevated Pelvis Posture Posterior Tilted,(R) Iliac Crest Superior Knee Posture (L) Genu Valgus,(R) Genu Valgus Ankle/Foot Posture (R) Calcaneal Eversion,(R) Forefoot Abducted Comments Posture Comments Scoliosis of the spine with upper apex on left, lower apex on right PT-OP-K Range of Motion Start: 03/18/19 18:03 Freq: Status: Active Protocol: Document 03/19/19 10:33 LRN (Rec: 03/23/19 18:12 LRN [id number]) Lumbar Spine Range of Motion Lumbar Spine Active Degrees Flexion 98 Extension 5 Lateral Flexion Left 12 Lateral Flexion Right 12 Hip Goniometric Range of Motion Hip Right Passive Testing Position Supine Abduction 45 Internal Rotation 20 External Rotation 75 Left Passive Abduction 40 Internal Rotation 10 External Rotation 75 Hip ROM Limitations Comments PSLR is WNL bilaterally PT-OP-M Strength Start: 03/18/19 18:03 Freq: Status: Active Protocol: Document 03/19/19 10:33 LRN (Rec: 03/23/19 18:12 LRN [id number]) Hip Strength Hip Manual Muscle Testing Right External Rotation 3 Fair Comments Hip strength is 5/5 except hip ER above Left Adduction 4+ Good+ External Rotation 3 Fair Comments Hip strength is 5/5 except those listed above. PT-OP-Q Treatments Start: 03/18/19 18:03 Freq: Status: Active Protocol: Document 03/30/19 09:04 LRN (Rec: 03/30/19 09:48 LRN [id number]) Therapeutic Exercises Supine Exercises Bowel massage Supine Exercise Name Bowel massage training Reps/Minutes 9' Comments extra time for rx, training, self massage Deep Breathing Supine Exercise Name Deep Breathing training Comments Pt breathing 5 sec and not isolated to abdomen to start Sidelying Exercises Clamshell Sidelying Exercise Name Clamshell Reps/Minutes 3' Comments Time limited rx to R leg. Manual Therapy Treatment Soft Tissue Mobilization Bowel Massage Body Location Bowel massage Body Position 9' Self-Care/Home Management Treatment Education Patient Education Home Exercise Program Other Education Educated, reviewed & discussed bladder diary and fluid in/ out put norms for weight. Discussed & reviewed fluid types (acidic vs basic). Discussed and educated pt in proper bowel care and recommended pt speak with MD regarding fiber needs if further assist is needed to improve bowel function. Activities Self-Care/Home Management Activities Issued & reviewed HEP: Bowel massage and Clamshell exercise . Reviewed Kegel and Aggravator exercise. PT-OP-T Assessment and Plan Start: 03/18/19 18:03 Freq: Status: Active Protocol: Document 03/30/19 09:04 LRN (Rec: 03/30/19 09:48 LRN [id number]) Physical Therapy Assessment Assessment Summary Assessment Bladder Diary review shows lack of fluid and fiber intake . Her BMs are more like type 1, 3 and 5 after 3 days. Pt could probably easily achieve a #4 with more water and fiber in diet. Pt is not ill anymore and coughing or sneezing; therefore occasionally leaking due to PF weakness. Pt deep breathing is slightly fast at 5 secs and with concentration does good excursion through belly. Physical Therapy Plan Frequency and Duration Frequency of Treatment 1x/Week Plan of Care Start Date 03/19/19 Plan of Care End Date 07/10/19 Next Visit Focus/Plan Next Note Type Treatment Note Next Visit Plan Review bladder diary if pt does again to track diet for fiber content. Discuss as needed to improve bowel level of constipation. Discuss PF anatomy and start biofeedback training with sEMG or EMG biofeedback assessment. Recheck deep breathing and Progress LE roll in/out program and progress anterior and posterior PF strengthening .
--- NOTE | 2019-04-05 12:45 | PT.OTN ---
Current Diagnoses Muscle weakness (generalized) (04/05/19) Cystocele, midline (04/05/19) Pelvic and perineal pain (04/05/19) Other symptoms and signs involving the musculoskeletal system (04/05/19) Physical Therapy Treatment Note PT-OP-A Visit Information Start: 03/18/19 18:03 Freq: Status: Active Protocol: Document 04/05/19 10:36 LRN (Rec: 04/05/19 11:27 LRN [id number]) Out-Patient Physical Therapy Visit Information Visit Information Visit Type Treatment Note Visit Start Time 10:36 Visit Stop Time 11:27 Total Visit Minutes 51 Visit Number 3 Number of SHEARING SHED HAND Visits 0 Evaluation Information Evaluation Date 03/19/19 Precautions Precautions Osteoporosis High HR, on blood pressure medications Bladder and Rectal lift - 10/16 PT-OP-B Current Condition Start: 03/18/19 18:03 Freq: Status: Active Protocol: Document 03/19/19 10:33 LRN (Rec: 03/19/19 11:27 LRN [id number]) Current Condition History of Current Condition Onset Date 02/16/19 Current Complaints Pressure discomfort in abdomen and urinary leakage. History of Current Condition Had been on vacation and had constipation and was experiencing a heaviness and pressure discomfort, not really a pain. Also has urinary frequency and leakage with sneezing, coughing and with sit to stand. Wears a pantiliner when going outside of home, not in the home. Dr Estefany Bhagat checked and found had a little prolapse of bladder and rectum. She reports no constipation, has daily BMs. Sometimes BM every other day with small chunks, otherwise sausage like. Has hemorrhoids . Prior Treatments and Tests October 16, 2018: Bladder and Rectal lift. Had to wear a catheter 2 weeks before the surgery because she couldn't urinate (had lots of pain and urgency, drained 1000 cc or urine). Future Testing and Treatments Planned None, no follow up MD appts. Developmental History Developmental History 10/2018 Large cyst removed from ovaries and had bladder and rectal lift due to lower abdominal pain. The abdominal pain has come back and noticed it present when needing to have a bowel movement. said there is a little prolapse and therefore referred to PT. Treatment Goals Patient/Caregiver Goals Pt goal is to get rid of pressure pain and control the leakage. Prior Functional Status Baseline Function- ADL's Independent Baseline Function- Mobility Independent Baseline Function- Gait No urinary leakage Baseline Function- Other No fear of traveling Current Functional Impairments (Reported) Functional Limitations- ADL's Must stop frequently with bathroom stops when travelling . Urinary leakage with change of positions, an urge, sneezing or coughing. Can't delay urinating with an urge. Functional Limitations- Mobility/Gait Wears liner going outside of home. Personal Factors Other Personal Factors That May Effect High HR with blood pressure Therapy/Recovery medication, Osteoporosis/ Osteopenia with compression fracture in lower mid back - . Arthritis of the neck with pain. PT-OP-C Subjective Start: 03/18/19 18:03 Freq: Status: Active Protocol: Document 04/05/19 10:36 LRN (Rec: 04/05/19 11:27 LRN [id number]) OP-PT Subjective Patient Comments Patient Comments Same. Seems easier to do Kegel. PT-OP-I Pelvic Floor Start: 03/18/19 18:03 Freq: Status: Active Protocol: Document 04/05/19 10:36 LRN (Rec: 04/05/19 11:27 LRN [id number]) Pelvic Floor Assessment SEMG (uV) Baseline 3.4 Quick Contraction 6.7 Recruitment Pattern Good Relaxation Poor/Slow Holding Fair Stability of Hold Fair SEMG Stability of Rest Poor/Slow Comments Pelvic Floor Comments Quick Flicks: Avg Work is 6. 7uV's with a max of 17.1uV's, Avg Rest 4.5uV's. Long Holds: Avg Work is 7.5uV 's, Avg Rest is 3.9uV's. PT-OP-J Posture/Palpation/Skin Start: 03/18/19 18:03 Freq: Status: Active Protocol: Document 03/19/19 10:33 LRN (Rec: 03/23/19 18:12 LRN [id number]) Posture Evaluation Position Standing Evaluation View All positions Head/C-Spine Posture Forward Head T-Spine Posture Increased Kyphosis L-Spine Posture Flattened Shoulder Posture (R) Elevated Pelvis Posture Posterior Tilted,(R) Iliac Crest Superior Knee Posture (L) Genu Valgus,(R) Genu Valgus Ankle/Foot Posture (R) Calcaneal Eversion,(R) Forefoot Abducted Comments Posture Comments Scoliosis of the spine with upper apex on left, lower apex on right PT-OP-K Range of Motion Start: 03/18/19 18:03 Freq: Status: Active Protocol: Document 03/19/19 10:33 LRN (Rec: 03/23/19 18:12 LRN [id number]) Lumbar Spine Range of Motion Lumbar Spine Active Degrees Flexion 98 Extension 5 Lateral Flexion Left 12 Lateral Flexion Right 12 Hip Goniometric Range of Motion Hip Right Passive Testing Position Supine Abduction 45 Internal Rotation 20 External Rotation 75 Left Passive Abduction 40 Internal Rotation 10 External Rotation 75 Hip ROM Limitations Comments PSLR is WNL bilaterally PT-OP-M Strength Start: 03/18/19 18:03 Freq: Status: Active Protocol: Document 03/19/19 10:33 LRN (Rec: 03/23/19 18:12 LRN [id number]) Hip Strength Hip Manual Muscle Testing Right External Rotation 3 Fair Comments Hip strength is 5/5 except hip ER above Left Adduction 4+ Good+ External Rotation 3 Fair Comments Hip strength is 5/5 except those listed above. PT-OP-Q Treatments Start: 03/18/19 18:03 Freq: Status: Active Protocol: Document 04/05/19 10:36 LRN (Rec: 04/06/19 08:22 LRN [id number]) Therapeutic Exercises Supine Exercises LE roll in/out Supine Exercise Name LE roll in/outs Reps/Minutes 5' Comments Training. Verbal and physical cuing needed. Deep Breathing Supine Exercise Name Deep Breathing Reps/Minutes 3' Neuro Re-Education Treatment Coordination Activities PF contractions Details EMG training for Quick & Long holds coordinating breathing & isolation Reps/Duration 15' Comments See PF assessment. Self-Care/Home Management Treatment Education Patient Education Home Exercise Program Other Education Reviewed bladder diary and discussed changes to daily routine to improve bowel/ bladder function. Discussion on fiber intake. Educated pt in pelvic anatomy with handout issued. Briefly discussed delay technique and voiding timing and JIC-ing. Activities Self-Care/Home Management Activities Issued & reviewed HEP: LE roll in/out. PT-OP-T Assessment and Plan Start: 03/18/19 18:03 Freq: Status: Active Protocol: Document 04/05/19 10:36 LRN (Rec: 04/05/19 11:27 LRN [id number]) Physical Therapy Assessment Goals Four Impairment Decreased endurance of PF muscles Short Term Goal (STG) Pt will be able to hold a PF contraction 6 sec's prior to palpable or fatigue notable per EMG biofeedback. STG Duration 06/17/19 Rib Bender Goal (LTG) Pt will be able to hold a PF contraction 9 or more secs prior to fatigue with minimal onset of urinary leakage. LTG Duration 07/10/19 Three Impairment PF weakness with urinary leakage. Short Term Goal (STG) Improve PF strength to 2/5 STG Duration 04/16/19 Rib Bender Goal (LTG) Improve PF strength to 3/5 with pt report of decrease in feeling of pressure in the lower abdominal region. LTG Duration 07/10/19 Two Impairment Poor coordination of PF contraction. Short Term Goal (STG) Improve awareness of being able to perform a PF contraction STG Duration 04/02/19 (04/05/19: Progressing towards goal) Rib Bender Goal (LTG) Pt will be able to perform a PF contraction with minimal use of gluteal or abdominal muscles. LTG Duration 06/17/19 (04/05/19: Progressing towards goal) One Impairment Lacks self care HEP Rib Bender Goal (LTG) Pt will be independent with a home exercise program. LTG Duration 07/10/19 (04/05/19: Progressing towards goal) Assessment Summary Assessment Improved deep breathing performance, but too quick. She is not able to coordinate LE roll in/outs with breathing . Per EMG biofeedback she demonstrates fair strength of her PF but a lot of activity during the rest phases. She is able to hold a 10 sec contraction briefly (2 sec) and uses substitute muscles of her hip AD and TA. She is very receptive to increasing her fluid intake to decrease her level of constipation and receptive to PF exercises. The pt is regular with her voiding of every 2-3 hours. Further PF anterior & posterior strengthening is needed for long holds and quick flicks. Physical Therapy Plan Frequency and Duration Frequency of Treatment 1x/Week Plan of Care Start Date 03/19/19 Plan of Care End Date 07/10/19 Next Visit Focus/Plan Next Note Type Treatment Note Next Visit Plan Educate pt in defer technique. Initiate Biofeedback training with EMG biofeedback. Assess for appropriateness of PF stim for PF awareness training. Recheck deep breathing and Progress LE roll in/out program as appropriate . Discuss transfers and ADLS for lifting and moving with breathing. Progress anterior and posterior PF strengthening .
--- NOTE | 2019-04-12 10:28 | PT.OTN ---
Current Diagnoses Muscle weakness (generalized) (04/12/19) Cystocele, midline (04/12/19) Pelvic and perineal pain (04/12/19) Other symptoms and signs involving the musculoskeletal system (04/12/19) Physical Therapy Treatment Note PT-OP-A Visit Information Start: 03/18/19 18:03 Freq: Status: Active Protocol: Document 04/12/19 08:16 LRN (Rec: 04/12/19 09:04 LRN [id number]) Out-Patient Physical Therapy Visit Information Visit Information Visit Type Treatment Note Visit Start Time 08:16 Visit Stop Time 09:02 Total Visit Minutes 46 Visit Number 4 Number of DIP FILLER Visits 0 Evaluation Information Evaluation Date 03/19/19 Precautions Precautions Osteoporosis High HR, on blood pressure medications Bladder and Rectal lift - 10/16 PT-OP-B Current Condition Start: 03/18/19 18:03 Freq: Status: Active Protocol: Document 03/19/19 10:33 LRN (Rec: 03/19/19 11:27 LRN [id number]) Current Condition History of Current Condition Onset Date 02/16/19 Current Complaints Pressure discomfort in abdomen and urinary leakage. History of Current Condition Had been on vacation and had constipation and was experiencing a heaviness and pressure discomfort, not really a pain. Also has urinary frequency and leakage with sneezing, coughing and with sit to stand. Wears a pantiliner when going outside of home, not in the home. Dr Estefany Bhagat checked and found had a little prolapse of bladder and rectum. She reports no constipation, has daily BMs. Sometimes BM every other day with small chunks, otherwise sausage like. Has hemorrhoids . Prior Treatments and Tests October 16, 2018: Bladder and Rectal lift. Had to wear a catheter 2 weeks before the surgery because she couldn't urinate (had lots of pain and urgency, drained 1000 cc or urine). Future Testing and Treatments Planned None, no follow up MD appts. Developmental History Developmental History 10/2018 Large cyst removed from ovaries and had bladder and rectal lift due to lower abdominal pain. The abdominal pain has come back and noticed it present when needing to have a bowel movement. said there is a little prolapse and therefore referred to PT. Treatment Goals Patient/Caregiver Goals Pt goal is to get rid of pressure pain and control the leakage. Prior Functional Status Baseline Function- ADL's Independent Baseline Function- Mobility Independent Baseline Function- Gait No urinary leakage Baseline Function- Other No fear of traveling Current Functional Impairments (Reported) Functional Limitations- ADL's Must stop frequently with bathroom stops when travelling . Urinary leakage with change of positions, an urge, sneezing or coughing. Can't delay urinating with an urge. Functional Limitations- Mobility/Gait Wears liner going outside of home. Personal Factors Other Personal Factors That May Effect High HR with blood pressure Therapy/Recovery medication, Osteoporosis/ Osteopenia with compression fracture in lower mid back - . Arthritis of the neck with pain. PT-OP-C Subjective Start: 03/18/19 18:03 Freq: Status: Active Protocol: Document 04/12/19 08:16 LRN (Rec: 04/12/19 09:04 LRN [id number]) OP-PT Subjective Patient Comments Patient Comments States the LE Roll in/outs caused her hips to hurt. States she sees improvement in her urinary voiding. Not waking up as often in the night. PT-OP-I Pelvic Floor Start: 03/18/19 18:03 Freq: Status: Active Protocol: Document 04/05/19 10:36 LRN (Rec: 04/05/19 11:27 LRN [id number]) Pelvic Floor Assessment SEMG (uV) Baseline 3.4 Quick Contraction 6.7 Recruitment Pattern Good Relaxation Poor/Slow Holding Fair Stability of Hold Fair SEMG Stability of Rest Poor/Slow Comments Pelvic Floor Comments Quick Flicks: Avg Work is 6. 7uV's with a max of 17.1uV's, Avg Rest 4.5uV's. Long Holds: Avg Work is 7.5uV 's, Avg Rest is 3.9uV's. PT-OP-J Posture/Palpation/Skin Start: 03/18/19 18:03 Freq: Status: Active Protocol: Document 03/19/19 10:33 LRN (Rec: 03/23/19 18:12 LRN [id number]) Posture Evaluation Position Standing Evaluation View All positions Head/C-Spine Posture Forward Head T-Spine Posture Increased Kyphosis L-Spine Posture Flattened Shoulder Posture (R) Elevated Pelvis Posture Posterior Tilted,(R) Iliac Crest Superior Knee Posture (L) Genu Valgus,(R) Genu Valgus Ankle/Foot Posture (R) Calcaneal Eversion,(R) Forefoot Abducted Comments Posture Comments Scoliosis of the spine with upper apex on left, lower apex on right PT-OP-K Range of Motion Start: 03/18/19 18:03 Freq: Status: Active Protocol: Document 03/19/19 10:33 LRN (Rec: 03/23/19 18:12 LRN [id number]) Lumbar Spine Range of Motion Lumbar Spine Active Degrees Flexion 98 Extension 5 Lateral Flexion Left 12 Lateral Flexion Right 12 Hip Goniometric Range of Motion Hip Right Passive Testing Position Supine Abduction 45 Internal Rotation 20 External Rotation 75 Left Passive Abduction 40 Internal Rotation 10 External Rotation 75 Hip ROM Limitations Comments PSLR is WNL bilaterally PT-OP-M Strength Start: 03/18/19 18:03 Freq: Status: Active Protocol: Document 03/19/19 10:33 LRN (Rec: 03/23/19 18:12 LRN [id number]) Hip Strength Hip Manual Muscle Testing Right External Rotation 3 Fair Comments Hip strength is 5/5 except hip ER above Left Adduction 4+ Good+ External Rotation 3 Fair Comments Hip strength is 5/5 except those listed above. PT-OP-Q Treatments Start: 03/18/19 18:03 Freq: Status: Active Protocol: Document 04/12/19 08:16 LRN (Rec: 04/12/19 09:04 LRN [id number]) Therapeutic Exercises Supine Exercises Kegel w/wedge Supine Exercise Name Kegel on Wedge Equipment Used Wedge Reps/Minutes 4' Comments Kegels and for practice to determine long hold time. LE roll in/out Supine Exercise Name LE roll in/outs Side bilateral Resistance T-Band & Towel roll Equipment Used With and without T-Band and towel roll Reps/Minutes 7' Comments Verbal and physical cuing needed. Deep Breathing Supine Exercise Name Deep Breathing Reps/Minutes 3' Comments Cuing for abdominal excursion. Neuro Re-Education Treatment Coordination Activities PF contractions Details EMG Biofeedback for coordination of contraction Equipment EMG biofeedback Reps/Duration 9' Comments Extra soft tissue pressure on vaginal electrode resulted in poor readings. Extra time was taken to try and get biofeedback readings helpful to patient. Self-Care/Home Management Treatment Education Patient Education Body Mechanics Other Education Discussed transfers and body mechanics (lifting, moving) as related to breathing properly . PT-OP-T Assessment and Plan Start: 03/18/19 18:03 Freq: Status: Active Protocol: Document 04/12/19 08:16 LRN (Rec: 04/12/19 09:04 LRN [id number]) Physical Therapy Assessment Assessment Summary Assessment Pt had no questions on defer technique and bladder retraining. She has good coordination of breathing with LE Roll in/outs. Good understanding of proper breathing with body mechanics and transfers. EMG biofeedback not giving appropriate readings for coordination training; therefore will start with biofeedback next treatment on wedge and off wedge. Pt appears to have good tissue health and a good lift was felt with posterior PF on wedge, and lateral doyle felt. Physical Therapy Plan Frequency and Duration Frequency of Treatment 1x/Week Plan of Care Start Date 03/19/19 Plan of Care End Date 07/10/19 Next Visit Focus/Plan Next Note Type Treatment Note Next Visit Plan Start biofeedback training with EMG biofeedback on wedge and then off. Assess for appropriateness of PF stim for PF awareness training. Progress LE roll in/out program as appropriate. Progress anterior and posterior PF strengthening.
--- NOTE | 2019-04-19 16:38 | PT.OTN ---
Current Diagnoses Muscle weakness (generalized) (04/19/19) Cystocele, midline (04/19/19) Pelvic and perineal pain (04/19/19) Other symptoms and signs involving the musculoskeletal system (04/19/19) Physical Therapy Treatment Note PT-OP-A Visit Information Start: 03/18/19 18:03 Freq: Status: Active Protocol: Document 04/19/19 08:19 LRN (Rec: 04/19/19 09:04 LRN [id number]) Out-Patient Physical Therapy Visit Information Visit Information Visit Type Treatment Note Visit Start Time 08:19 Visit Stop Time 09:04 Total Visit Minutes 45 Visit Number 5 Number of GUIDANCE COUNSELOR Visits 0 Evaluation Information Evaluation Date 03/19/19 Precautions Precautions Osteoporosis High HR, on blood pressure medications Bladder and Rectal lift - 10/16 PT-OP-B Current Condition Start: 03/18/19 18:03 Freq: Status: Active Protocol: Document 03/19/19 10:33 LRN (Rec: 03/19/19 11:27 LRN [id number]) Current Condition History of Current Condition Onset Date 02/16/19 Current Complaints Pressure discomfort in abdomen and urinary leakage. History of Current Condition Had been on vacation and had constipation and was experiencing a heaviness and pressure discomfort, not really a pain. Also has urinary frequency and leakage with sneezing, coughing and with sit to stand. Wears a pantiliner when going outside of home, not in the home. Dr Estefany Bhagat checked and found had a little prolapse of bladder and rectum. She reports no constipation, has daily BMs. Sometimes BM every other day with small chunks, otherwise sausage like. Has hemorrhoids . Prior Treatments and Tests October 16, 2018: Bladder and Rectal lift. Had to wear a catheter 2 weeks before the surgery because she couldn't urinate (had lots of pain and urgency, drained 1000 cc or urine). Future Testing and Treatments Planned None, no follow up MD appts. Developmental History Developmental History 10/2018 Large cyst removed from ovaries and had bladder and rectal lift due to lower abdominal pain. The abdominal pain has come back and noticed it present when needing to have a bowel movement. said there is a little prolapse and therefore referred to PT. Treatment Goals Patient/Caregiver Goals Pt goal is to get rid of pressure pain and control the leakage. Prior Functional Status Baseline Function- ADL's Independent Baseline Function- Mobility Independent Baseline Function- Gait No urinary leakage Baseline Function- Other No fear of traveling Current Functional Impairments (Reported) Functional Limitations- ADL's Must stop frequently with bathroom stops when travelling . Urinary leakage with change of positions, an urge, sneezing or coughing. Can't delay urinating with an urge. Functional Limitations- Mobility/Gait Wears liner going outside of home. Personal Factors Other Personal Factors That May Effect High HR with blood pressure Therapy/Recovery medication, Osteoporosis/ Osteopenia with compression fracture in lower mid back - . Arthritis of the neck with pain. PT-OP-C Subjective Start: 03/18/19 18:03 Freq: Status: Active Protocol: Document 04/19/19 08:19 LRN (Rec: 04/19/19 09:04 LRN [id number]) OP-PT Subjective Patient Comments Patient Comments No significant change. PT-OP-I Pelvic Floor Start: 03/18/19 18:03 Freq: Status: Active Protocol: Document 04/19/19 08:19 LRN (Rec: 04/19/19 09:04 LRN [id number]) Pelvic Floor Assessment SEMG (uV) Baseline 0.2 10 Second Contraction 1.3 Recruitment Pattern Good Holding Fair Stability of Hold Poor/Slow SEMG Stability of Rest Good Comments Pelvic Floor Comments Used 2 Electrodes: TA & 8 O'Clock of Perineum. TA: Baseline 0.2, 10 sec hold Avg Work 1,3, Avg Rest 0.4. ON WEDGE: PT-OP-J Posture/Palpation/Skin Start: 03/18/19 18:03 Freq: Status: Active Protocol: Document 03/19/19 10:33 LRN (Rec: 03/23/19 18:12 LRN [id number]) Posture Evaluation Position Standing Evaluation View All positions Head/C-Spine Posture Forward Head T-Spine Posture Increased Kyphosis L-Spine Posture Flattened Shoulder Posture (R) Elevated Pelvis Posture Posterior Tilted,(R) Iliac Crest Superior Knee Posture (L) Genu Valgus,(R) Genu Valgus Ankle/Foot Posture (R) Calcaneal Eversion,(R) Forefoot Abducted Comments Posture Comments Scoliosis of the spine with upper apex on left, lower apex on right PT-OP-K Range of Motion Start: 03/18/19 18:03 Freq: Status: Active Protocol: Document 03/19/19 10:33 LRN (Rec: 03/23/19 18:12 LRN [id number]) Lumbar Spine Range of Motion Lumbar Spine Active Degrees Flexion 98 Extension 5 Lateral Flexion Left 12 Lateral Flexion Right 12 Hip Goniometric Range of Motion Hip Right Passive Testing Position Supine Abduction 45 Internal Rotation 20 External Rotation 75 Left Passive Abduction 40 Internal Rotation 10 External Rotation 75 Hip ROM Limitations Comments PSLR is WNL bilaterally PT-OP-M Strength Start: 03/18/19 18:03 Freq: Status: Active Protocol: Document 03/19/19 10:33 LRN (Rec: 03/23/19 18:12 LRN [id number]) Hip Strength Hip Manual Muscle Testing Right External Rotation 3 Fair Comments Hip strength is 5/5 except hip ER above Left Adduction 4+ Good+ External Rotation 3 Fair Comments Hip strength is 5/5 except those listed above. PT-OP-Q Treatments Start: 03/18/19 18:03 Freq: Status: Active Protocol: Document 04/19/19 08:19 LRN (Rec: 04/19/19 09:04 LRN [id number]) Therapeutic Exercises Supine Exercises LE roll in/out Supine Exercise Name LE Roll in/out on wedge Side bilateral Deep Breathing Supine Exercise Name Deep Breathing Reps/Minutes 3' Comments Cuing for abdominal excursion. Neuro Re-Education Treatment Other Activities EMG Training Details PF contraction in isolation of TA, On/Off wedge, Quick & Long holds Reps/Duration 35' Comments Electrodes: Abdomen above Pubic Symphysis. Perineum at 8 O'Clock. Assessment of resting tone done in supine and on wedge. Self-Care/Home Management Treatment Education Patient Education Home Exercise Program Activities Self-Care/Home Management Activities Issued & reviewed Deep Breathing ex. Discusssed HEP and progression of reps with exercise, starting hold of 4 sec x 5 reps f/b hold 3 sec x 5 reps and increasing midweek by 1 sec to start. PT-OP-T Assessment and Plan Start: 03/18/19 18:03 Freq: Status: Active Protocol: Document 04/19/19 08:19 LRN (Rec: 04/19/19 09:04 LRN [id number]) Physical Therapy Assessment Goals Four Impairment Decreased endurance of PF muscles Short Term Goal (STG) Pt will be able to hold a PF contraction 6 sec's prior to palpable or fatigue notable per EMG biofeedback. STG Duration 06/17/19 Mcc Goal (LTG) Pt will be able to hold a PF contraction 9 or more secs prior to fatigue with minimal onset of urinary leakage. LTG Duration 07/10/19 Three Impairment PF weakness with urinary leakage. Short Term Goal (STG) Improve PF strength to 2/5 STG Duration 04/16/19 Exhibit Display Representative Goal (LTG) Improve PF strength to 3/5 with pt report of decrease in feeling of pressure in the lower abdominal region. LTG Duration 07/10/19 Two Impairment Poor coordination of PF contraction. Short Term Goal (STG) Improve awareness of being able to perform a PF contraction STG Duration 04/02/19 (04/05/19: Progressing towards goal) Exhibit Display Representative Goal (LTG) Pt will be able to perform a PF contraction with minimal use of gluteal or abdominal muscles. LTG Duration 06/17/19 (04/05/19: Progressing towards goal) One Impairment Lacks self care HEP Exhibit Display Representative Goal (LTG) Pt will be independent with a home exercise program. LTG Duration 07/10/19 (04/1619: Progressing towards goal) Assessment Summary Assessment Pt demonstrates through sEMG electrodes (8 O'Clock perineum & on R inner thigh) minimal use of hip AD & abdominals with PF contraction. Her PF strength is very weak. Baseline rest of PF [place]lie: 0 .2uV's, On Wedge: 0.2uV's. Hooklie: ENDURANCE long holds : avg Work 1.3uV's, avg rest 0 .4 uV's, holding 2-3 sec's prior to fatigue, QUICK FLICKS was not assessed. Her PF strength On Wedge: ENDURANCE long holds: avg Work is 0.6uV' s, avg rest is 0.3uV's & QUICK FLICKS avg Work is 1.2uV's, avg rest 0.3uV's. Pt showed weaking of strength of contraction with Quick Flicks after 3 repetitions. Physical Therapy Plan Frequency and Duration Frequency of Treatment 1x/Week Plan of Care Start Date 03/19/19 Plan of Care End Date 07/10/19 Next Visit Focus/Plan Next Note Type Treatment Note Next Visit Plan Check sEMG strength of Quick Flicks in hooklie. Then try vaginal electrode for training of strength of PF contractions. Biofeedback training with EMG biofeedback on/off wedge. Assess for appropriateness of PF stim for PF awareness training. Progress LE roll in/out program as appropriate. Progress anterior and posterior PF strengthening.
--- NOTE | 2019-04-19 16:48 | PT.OTN ---
Current Diagnoses Muscle weakness (generalized) (04/19/19) Cystocele, midline (04/19/19) Pelvic and perineal pain (04/19/19) Other symptoms and signs involving the musculoskeletal system (04/19/19) Physical Therapy Treatment Note PT-OP-A Visit Information Start: 03/18/19 18:03 Freq: Status: Active Protocol: Document 04/19/19 08:19 LRN (Rec: 04/19/19 09:04 LRN [id number]) Out-Patient Physical Therapy Visit Information Visit Information Visit Type Treatment Note Visit Start Time 08:19 Visit Stop Time 09:04 Total Visit Minutes 45 Visit Number 5 Number of ROCK WOOL INSULATOR Visits 0 Evaluation Information Evaluation Date 03/19/19 Precautions Precautions Osteoporosis High HR, on blood pressure medications Bladder and Rectal lift - 10/16 PT-OP-B Current Condition Start: 03/18/19 18:03 Freq: Status: Active Protocol: Document 03/19/19 10:33 LRN (Rec: 03/19/19 11:27 LRN [id number]) Current Condition History of Current Condition Onset Date 02/16/19 Current Complaints Pressure discomfort in abdomen and urinary leakage. History of Current Condition Had been on vacation and had constipation and was experiencing a heaviness and pressure discomfort, not really a pain. Also has urinary frequency and leakage with sneezing, coughing and with sit to stand. Wears a pantiliner when going outside of home, not in the home. Dr Estefany Bhagat checked and found had a little prolapse of bladder and rectum. She reports no constipation, has daily BMs. Sometimes BM every other day with small chunks, otherwise sausage like. Has hemorrhoids . Prior Treatments and Tests October 16, 2018: Bladder and Rectal lift. Had to wear a catheter 2 weeks before the surgery because she couldn't urinate (had lots of pain and urgency, drained 1000 cc or urine). Future Testing and Treatments Planned None, no follow up MD appts. Developmental History Developmental History 10/2018 Large cyst removed from ovaries and had bladder and rectal lift due to lower abdominal pain. The abdominal pain has come back and noticed it present when needing to have a bowel movement. said there is a little prolapse and therefore referred to PT. Treatment Goals Patient/Caregiver Goals Pt goal is to get rid of pressure pain and control the leakage. Prior Functional Status Baseline Function- ADL's Independent Baseline Function- Mobility Independent Baseline Function- Gait No urinary leakage Baseline Function- Other No fear of traveling Current Functional Impairments (Reported) Functional Limitations- ADL's Must stop frequently with bathroom stops when travelling . Urinary leakage with change of positions, an urge, sneezing or coughing. Can't delay urinating with an urge. Functional Limitations- Mobility/Gait Wears liner going outside of home. Personal Factors Other Personal Factors That May Effect High HR with blood pressure Therapy/Recovery medication, Osteoporosis/ Osteopenia with compression fracture in lower mid back - . Arthritis of the neck with pain. PT-OP-C Subjective Start: 03/18/19 18:03 Freq: Status: Active Protocol: Document 04/19/19 08:19 LRN (Rec: 04/19/19 09:04 LRN [id number]) OP-PT Subjective Patient Comments Patient Comments No significant change. PT-OP-I Pelvic Floor Start: 03/18/19 18:03 Freq: Status: Active Protocol: Document 04/19/19 08:19 LRN (Rec: 04/19/19 09:04 LRN [id number]) Pelvic Floor Assessment SEMG (uV) Baseline 0.2 10 Second Contraction 1.3 Recruitment Pattern Good Holding Fair Stability of Hold Poor/Slow SEMG Stability of Rest Good Comments Pelvic Floor Comments Used 2 Electrodes: TA (initally at R hip AD) & 8 O'Clock of Perineum. Hooklie: L Hip AD Baseline Rest 0.2uV's. PELVIC FLOOR ( PF): Baseline Rest 0.2uV's. Wedge: TA & PF Baseline Rest 0 .2uV's. Hooklie: ENDURANCE long holds : avg Work 1.3uV's, avg Rest 0 .4 uV's, holding 2-3 sec's prior to fatigue, QUICK FLICKS was not assessed. On Wedge: ENDURANCE long holds: avg Work is 0.6uV's, avg rest is 0.3uV's & QUICK FLICKS avg Work is 1.2uV's, avg rest 0.3uV's. Pt showed strength of contraction weakening with Long Holds after 2-3 secs & with Quick Flicks after 3 repetitions. PT-OP-J Posture/Palpation/Skin Start: 03/18/19 18:03 Freq: Status: Active Protocol: Document 03/19/19 10:33 LRN (Rec: 03/23/19 18:12 LRN [id number]) Posture Evaluation Position Standing Evaluation View All positions Head/C-Spine Posture Forward Head T-Spine Posture Increased Kyphosis L-Spine Posture Flattened Shoulder Posture (R) Elevated Pelvis Posture Posterior Tilted,(R) Iliac Crest Superior Knee Posture (L) Genu Valgus,(R) Genu Valgus Ankle/Foot Posture (R) Calcaneal Eversion,(R) Forefoot Abducted Comments Posture Comments Scoliosis of the spine with upper apex on left, lower apex on right PT-OP-K Range of Motion Start: 03/18/19 18:03 Freq: Status: Active Protocol: Document 03/19/19 10:33 LRN (Rec: 03/23/19 18:12 LRN [id number]) Lumbar Spine Range of Motion Lumbar Spine Active Degrees Flexion 98 Extension 5 Lateral Flexion Left 12 Lateral Flexion Right 12 Hip Goniometric Range of Motion Hip Right Passive Testing Position Supine Abduction 45 Internal Rotation 20 External Rotation 75 Left Passive Abduction 40 Internal Rotation 10 External Rotation 75 Hip ROM Limitations Comments PSLR is WNL bilaterally PT-OP-M Strength Start: 03/18/19 18:03 Freq: Status: Active Protocol: Document 03/19/19 10:33 LRN (Rec: 03/23/19 18:12 LRN [id number]) Hip Strength Hip Manual Muscle Testing Right External Rotation 3 Fair Comments Hip strength is 5/5 except hip ER above Left Adduction 4+ Good+ External Rotation 3 Fair Comments Hip strength is 5/5 except those listed above. PT-OP-Q Treatments Start: 03/18/19 18:03 Freq: Status: Active Protocol: Document 04/19/19 08:19 LRN (Rec: 04/19/19 09:04 LRN [id number]) Therapeutic Exercises Supine Exercises LE roll in/out Supine Exercise Name LE Roll in/out on wedge Side bilateral Deep Breathing Supine Exercise Name Deep Breathing Reps/Minutes 3' Comments Cuing for abdominal excursion. Neuro Re-Education Treatment Other Activities EMG Training Details PF contraction in isolation of TA, On/Off wedge, Quick & Long holds Reps/Duration 35' Comments Electrodes: Abdomen above Pubic Symphysis. Perineum at 8 O'Clock. Assessment of resting tone done in supine and on wedge. Self-Care/Home Management Treatment Education Patient Education Home Exercise Program Activities Self-Care/Home Management Activities Issued & reviewed Deep Breathing ex. Discusssed HEP and progression of reps with exercise, starting hold of 4 sec x 5 reps f/b hold 3 sec x 5 reps and increasing midweek by 1 sec to start. PT-OP-T Assessment and Plan Start: 03/18/19 18:03 Freq: Status: Active Protocol: Document 04/19/19 08:19 LRN (Rec: 04/19/19 09:04 LRN [id number]) Physical Therapy Assessment Goals Four Impairment Decreased endurance of PF muscles Short Term Goal (STG) Pt will be able to hold a PF contraction 6 sec's prior to palpable or fatigue notable per EMG biofeedback. STG Duration 06/17/19 Usp Goal (LTG) Pt will be able to hold a PF contraction 9 or more secs prior to fatigue with minimal onset of urinary leakage. LTG Duration 07/10/19 Three Impairment PF weakness with urinary leakage. Short Term Goal (STG) Improve PF strength to 2/5 STG Duration 04/16/19 Usp Goal (LTG) Improve PF strength to 3/5 with pt report of decrease in feeling of pressure in the lower abdominal region. LTG Duration 07/10/19 Two Impairment Poor coordination of PF contraction. Short Term Goal (STG) Improve awareness of being able to perform a PF contraction STG Duration 04/02/19 (04/05/19: Progressing towards goal) Development Advisor Goal (LTG) Pt will be able to perform a PF contraction with minimal use of gluteal or abdominal muscles. LTG Duration 06/17/19 (04/05/19: Progressing towards goal) One Impairment Lacks self care HEP Usp Goal (LTG) Pt will be independent with a home exercise program. LTG Duration 07/10/19 (04/1619: Progressing towards goal) Assessment Summary Assessment Pt demonstrates through sEMG electrodes (8 O'Clock perineum & on R inner thigh) minimal use of hip AD & abdominals with PF contraction. Her PF strength is very weak. Baseline rest of PF [place]: 0 .2uV's, On Wedge: 0.2uV's. Hooklie: ENDURANCE long holds : avg Work 1.3uV's, avg rest 0 .4 uV's, holding 2-3 sec's prior to fatigue, QUICK FLICKS was not assessed. Her PF strength On Wedge: ENDURANCE long holds: avg Work is 0.6uV' s, avg rest is 0.3uV's & QUICK FLICKS avg Work is 1.2uV's, avg rest 0.3uV's. Pt showed weaking of strength of contraction with Quick Flicks after 3 repetitions. Physical Therapy Plan Frequency and Duration Frequency of Treatment 1x/Week Plan of Care Start Date 03/19/19 Plan of Care End Date 07/10/19 Next Visit Focus/Plan Next Note Type Treatment Note Next Visit Plan Check sEMG strength of Quick Flicks in hooklie. Then try vaginal electrode for training of strength of PF contractions. Biofeedback training with EMG biofeedback on/off wedge. Assess for appropriateness of PF stim for PF awareness training. Progress LE roll in/out program as appropriate. Progress anterior and posterior PF strengthening.
--- NOTE | 2019-04-26 18:26 | PT.OTN ---
Current Diagnoses Muscle weakness (generalized) (04/26/19) Cystocele, midline (04/26/19) Pelvic and perineal pain (04/26/19) Other symptoms and signs involving the musculoskeletal system (04/26/19) Physical Therapy Treatment Note PT-OP-A Visit Information Start: 03/18/19 18:03 Freq: Status: Active Protocol: Document 04/26/19 08:18 LRN (Rec: 04/26/19 09:05 LRN [id number]) Out-Patient Physical Therapy Visit Information Visit Information Visit Type Treatment Note Visit Start Time 08:18 Visit Stop Time 09:05 Total Visit Minutes 47 Visit Number 6 Number of TOPPER PACKER Visits 0 Evaluation Information Evaluation Date 03/19/19 Precautions Precautions Osteoporosis High HR, on blood pressure medications Bladder and Rectal lift - 10/16 PT-OP-B Current Condition Start: 03/18/19 18:03 Freq: Status: Active Protocol: Document 03/19/19 10:33 LRN (Rec: 03/19/19 11:27 LRN [id number]) Current Condition History of Current Condition Onset Date 02/16/19 Current Complaints Pressure discomfort in abdomen and urinary leakage. History of Current Condition Had been on vacation and had constipation and was experiencing a heaviness and pressure discomfort, not really a pain. Also has urinary frequency and leakage with sneezing, coughing and with sit to stand. Wears a pantiliner when going outside of home, not in the home. Dr Estefany Bhagat checked and found had a little prolapse of bladder and rectum. She reports no constipation, has daily BMs. Sometimes BM every other day with small chunks, otherwise sausage like. Has hemorrhoids . Prior Treatments and Tests October 16, 2018: Bladder and Rectal lift. Had to wear a catheter 2 weeks before the surgery because she couldn't urinate (had lots of pain and urgency, drained 1000 cc or urine). Future Testing and Treatments Planned None, no follow up MD appts. Developmental History Developmental History 10/2018 Large cyst removed from ovaries and had bladder and rectal lift due to lower abdominal pain. The abdominal pain has come back and noticed it present when needing to have a bowel movement. said there is a little prolapse and therefore referred to PT. Treatment Goals Patient/Caregiver Goals Pt goal is to get rid of pressure pain and control the leakage. Prior Functional Status Baseline Function- ADL's Independent Baseline Function- Mobility Independent Baseline Function- Gait No urinary leakage Baseline Function- Other No fear of traveling Current Functional Impairments (Reported) Functional Limitations- ADL's Must stop frequently with bathroom stops when travelling . Urinary leakage with change of positions, an urge, sneezing or coughing. Can't delay urinating with an urge. Functional Limitations- Mobility/Gait Wears liner going outside of home. Personal Factors Other Personal Factors That May Effect High HR with blood pressure Therapy/Recovery medication, Osteoporosis/ Osteopenia with compression fracture in lower mid back - . Arthritis of the neck with pain. PT-OP-C Subjective Start: 03/18/19 18:03 Freq: Status: Active Protocol: Document 04/26/19 08:18 LRN (Rec: 04/26/19 09:05 LRN [id number]) OP-PT Subjective Patient Comments Patient Comments Going good. PT-OP-I Pelvic Floor Start: 03/18/19 18:03 Freq: Status: Active Protocol: Document 04/26/19 08:18 LRN (Rec: 04/26/19 09:05 LRN [id number]) Pelvic Floor Assessment SEMG (uV) Baseline 4.1 Quick Contraction 10.9 10 Second Contraction 6.7 Recruitment Pattern Good Relaxation Fair Stability of Hold Poor/Slow SEMG Stability of Rest Fair Comments Pelvic Floor Comments Using vaginal electrolde Quick Flicks: Avg resting tone : 4.2 uV. Long Hold: Avg resting tone: 3 .3 uV. ON WEDGE: Baseline: 2.8uV Quick Flicks: Avg Work is 6.5 uV, Avg Rest is 3.8 uV. Long Holds: Avg Work is uV, Avg Rest is uV. PT-OP-J Posture/Palpation/Skin Start: 03/18/19 18:03 Freq: Status: Active Protocol: Document 03/19/19 10:33 LRN (Rec: 03/23/19 18:12 LRN [id number]) Posture Evaluation Position Standing Evaluation View All positions Head/C-Spine Posture Forward Head T-Spine Posture Increased Kyphosis L-Spine Posture Flattened Shoulder Posture (R) Elevated Pelvis Posture Posterior Tilted,(R) Iliac Crest Superior Knee Posture (L) Genu Valgus,(R) Genu Valgus Ankle/Foot Posture (R) Calcaneal Eversion,(R) Forefoot Abducted Comments Posture Comments Scoliosis of the spine with upper apex on left, lower apex on right PT-OP-K Range of Motion Start: 03/18/19 18:03 Freq: Status: Active Protocol: Document 03/19/19 10:33 LRN (Rec: 03/23/19 18:12 LRN [id number]) Lumbar Spine Range of Motion Lumbar Spine Active Degrees Flexion 98 Extension 5 Lateral Flexion Left 12 Lateral Flexion Right 12 Hip Goniometric Range of Motion Hip Right Passive Testing Position Supine Abduction 45 Internal Rotation 20 External Rotation 75 Left Passive Abduction 40 Internal Rotation 10 External Rotation 75 Hip ROM Limitations Comments PSLR is WNL bilaterally PT-OP-M Strength Start: 03/18/19 18:03 Freq: Status: Active Protocol: Document 03/19/19 10:33 LRN (Rec: 03/23/19 18:12 LRN [id number]) Hip Strength Hip Manual Muscle Testing Right External Rotation 3 Fair Comments Hip strength is 5/5 except hip ER above Left Adduction 4+ Good+ External Rotation 3 Fair Comments Hip strength is 5/5 except those listed above. PT-OP-Q Treatments Start: 03/18/19 18:03 Freq: Status: Active Protocol: Document 04/26/19 08:18 LRN (Rec: 04/26/19 09:05 LRN [id number]) Therapeutic Exercises Supine Exercises LE roll in/out Supine Exercise Name LE Roll in/out on AND off wedge Side bilateral Resistance T-Band & Ball Equipment Used With and without T-Band and ball Reps/Minutes 8' Comments Verbal cuing to breath slow.. Deep Breathing Supine Exercise Name Deep Breathing Reps/Minutes 3' Comments Cuing for abdominal excursion. Neuro Re-Education Treatment Other Activities EMG Training 50-75% Details Re-education of PF contraction for 50-75% max contraction Reps/Duration 10. Comments Long holds for stability of hold (~4-5 mV) Rest periods applied Quick Flicks for awareness training of isolating PF. Training on/off wedge. EMG Training Details PF contraction in isolation of TA, On/Off wedge, Quick & Long holds Reps/Duration 35' Comments Vaginal Electrode Assessment of resting tone done in supine and on wedge. PT-OP-T Assessment and Plan Start: 03/18/19 18:03 Freq: Status: Active Protocol: Document 04/26/19 08:18 LRN (Rec: 04/26/19 09:05 LRN [id number]) Physical Therapy Assessment Goals Four Impairment Decreased endurance of PF muscles Short Term Goal (STG) Pt will be able to hold a PF contraction 6 sec's prior to palpable or fatigue notable per EMG biofeedback. STG Duration 06/17/19 Scheduling Representative Goal (LTG) Pt will be able to hold a PF contraction 9 or more secs prior to fatigue with minimal onset of urinary leakage. LTG Duration 07/10/19 Three Impairment PF weakness with urinary leakage. Short Term Goal (STG) Improve PF strength to 2/5 STG Duration 04/16/19 [facility] Goal (LTG) Improve PF strength to 3/5 with pt report of decrease in feeling of pressure in the lower abdominal region. LTG Duration 07/10/19 Two Impairment Poor coordination of PF contraction. Short Term Goal (STG) Improve awareness of being able to perform a PF contraction STG Duration 04/02/19 (04/05/19: Progressing towards goal) Scheduling Representative Goal (LTG) Pt will be able to perform a PF contraction with minimal use of gluteal or abdominal muscles. LTG Duration 06/17/19 (04/05/19: Progressing towards goal) One Impairment Lacks self care HEP [facility] Goal (LTG) Pt will be independent with a home exercise program. LTG Duration 07/10/19 (04/1619: Progressing towards goal) Assessment Summary Assessment Able to use EMG biofeedback with vaginal elecrode today. Pt uses breathing and breath holding for PF contraction and holding of contraction. Poor endurance, Fair Quick Flicks. On Wedge, strength of contractions are less as expected. with pt isolating the PF, 50% effort yields ~5uV . Physical Therapy Plan Frequency and Duration Frequency of Treatment 1x/Week Plan of Care Start Date 03/19/19 Plan of Care End Date 07/10/19 Next Visit Focus/Plan Next Note Type Treatment Note Next Visit Plan Continue vaginal electrode training of strength for PF contractions. Biofeedback training with EMG biofeedback on/off wedge. Assess for appropriateness of PF stim for PF awareness training. Progress LE roll in/out program as appropriate. Progress anterior and posterior PF strengthening.
--- NOTE | 2019-05-03 17:51 | PT.OTN ---
Current Diagnoses Muscle weakness (generalized) (05/03/19) Cystocele, midline (05/03/19) Pelvic and perineal pain (05/03/19) Other symptoms and signs involving the musculoskeletal system (05/03/19) Physical Therapy Treatment Note PT-OP-A Visit Information Start: 03/18/19 18:03 Freq: Status: Active Protocol: Document 05/03/19 08:18 LRN (Rec: 05/03/19 09:01 LRN [id number]) Out-Patient Physical Therapy Visit Information Visit Information Visit Type Treatment Note Visit Start Time 08:18 Visit Stop Time 09:01 Total Visit Minutes 43 Visit Number 7 Number of TEST BORER HELPER Visits 0 Evaluation Information Evaluation Date 03/19/19 Precautions Precautions Osteoporosis High HR, on blood pressure medications Bladder and Rectal lift - 10/16 PT-OP-B Current Condition Start: 03/18/19 18:03 Freq: Status: Active Protocol: Document 03/19/19 10:33 LRN (Rec: 03/19/19 11:27 LRN [id number]) Current Condition History of Current Condition Onset Date 02/16/19 Current Complaints Pressure discomfort in abdomen and urinary leakage. History of Current Condition Had been on vacation and had constipation and was experiencing a heaviness and pressure discomfort, not really a pain. Also has urinary frequency and leakage with sneezing, coughing and with sit to stand. Wears a pantiliner when going outside of home, not in the home. Dr Estefany Bhagat checked and found had a little prolapse of bladder and rectum. She reports no constipation, has daily BMs. Sometimes BM every other day with small chunks, otherwise sausage like. Has hemorrhoids . Prior Treatments and Tests October 16, 2018: Bladder and Rectal lift. Had to wear a catheter 2 weeks before the surgery because she couldn't urinate (had lots of pain and urgency, drained 1000 cc or urine). Future Testing and Treatments Planned None, no follow up MD appts. Developmental History Developmental History 10/2018 Large cyst removed from ovaries and had bladder and rectal lift due to lower abdominal pain. The abdominal pain has come back and noticed it present when needing to have a bowel movement. said there is a little prolapse and therefore referred to PT. Treatment Goals Patient/Caregiver Goals Pt goal is to get rid of pressure pain and control the leakage. Prior Functional Status Baseline Function- ADL's Independent Baseline Function- Mobility Independent Baseline Function- Gait No urinary leakage Baseline Function- Other No fear of traveling Current Functional Impairments (Reported) Functional Limitations- ADL's Must stop frequently with bathroom stops when travelling . Urinary leakage with change of positions, an urge, sneezing or coughing. Can't delay urinating with an urge. Functional Limitations- Mobility/Gait Wears liner going outside of home. Personal Factors Other Personal Factors That May Effect High HR with blood pressure Therapy/Recovery medication, Osteoporosis/ Osteopenia with compression fracture in lower mid back - . Arthritis of the neck with pain. PT-OP-C Subjective Start: 03/18/19 18:03 Freq: Status: Active Protocol: Document 05/03/19 08:18 LRN (Rec: 05/03/19 09:01 LRN [id number]) OP-PT Subjective Patient Comments Patient Comments Fighting cold, no change. Prefers DC and will seek new referral if needed when returning from vacation. She states she is no longer leaking unless coughing. PT-OP-I Pelvic Floor Start: 03/18/19 18:03 Freq: Status: Active Protocol: Document 05/03/19 08:18 LRN (Rec: 05/03/19 09:01 LRN [id number]) Pelvic Floor Assessment SEMG (uV) Baseline 2.2 Quick Contraction 4.3 Recruitment Pattern Good Stability of Hold Poor/Slow SEMG Stability of Rest Good Comments Pelvic Floor Comments Using vaginal electrolde. Data above is: No Bolster or Wedge Quick Flicks: Avg resting tone : 2.7 uV. Long Hold: Avg resting tone: 3 .5 uV. ON WEDGE: Baseline: 0.3 uV Quick Flicks: Avg Work is 5.2 uV, Avg Rest is 3.2 uV. Long Holds: Avg Work is 3.1 uV, Avg Rest is 0.9 uV. OFF WEDGE: Baseline: 2.2uV Quick Flicks: Avg Work is 4.3 uV, Avg Rest is 2.7 uV. Long Holds: Avg Work is 5. 4uV, Avg Rest is 3.5 uV. PT-OP-J Posture/Palpation/Skin Start: 03/18/19 18:03 Freq: Status: Active Protocol: Document 03/19/19 10:33 LRN (Rec: 03/23/19 18:12 LRN [id number]) Posture Evaluation Position Standing Evaluation View All positions Head/C-Spine Posture Forward Head T-Spine Posture Increased Kyphosis L-Spine Posture Flattened Shoulder Posture (R) Elevated Pelvis Posture Posterior Tilted,(R) Iliac Crest Superior Knee Posture (L) Genu Valgus,(R) Genu Valgus Ankle/Foot Posture (R) Calcaneal Eversion,(R) Forefoot Abducted Comments Posture Comments Scoliosis of the spine with upper apex on left, lower apex on right PT-OP-K Range of Motion Start: 03/18/19 18:03 Freq: Status: Active Protocol: Document 03/19/19 10:33 LRN (Rec: 03/23/19 18:12 LRN [id number]) Lumbar Spine Range of Motion Lumbar Spine Active Degrees Flexion 98 Extension 5 Lateral Flexion Left 12 Lateral Flexion Right 12 Hip Goniometric Range of Motion Hip Right Passive Testing Position Supine Abduction 45 Internal Rotation 20 External Rotation 75 Left Passive Abduction 40 Internal Rotation 10 External Rotation 75 Hip ROM Limitations Comments PSLR is WNL bilaterally PT-OP-M Strength Start: 03/18/19 18:03 Freq: Status: Active Protocol: Document 03/19/19 10:33 LRN (Rec: 03/23/19 18:12 LRN [id number]) Hip Strength Hip Manual Muscle Testing Right External Rotation 3 Fair Comments Hip strength is 5/5 except hip ER above Left Adduction 4+ Good+ External Rotation 3 Fair Comments Hip strength is 5/5 except those listed above. PT-OP-Q Treatments Start: 03/18/19 18:03 Freq: Status: Active Protocol: Document 05/03/19 08:18 LRN (Rec: 05/03/19 17:24 LRN [id number]) Neuro Re-Education Treatment Other Activities EMG Training Details PF contractions on/off wedge, training with legs flexed & with resistance. Reps/Duration 38' Comments Vaginal electrode, on/off wedge. Without wedge: legs flexed and legs straight. Self-Care/Home Management Treatment Education Patient Education Home Exercise Program Activities Self-Care/Home Management Activities Reviewed current HEP. Issued & reviewed HEP: LE roll in/out lifting foot off wall for core strengthening. PT-OP-T Assessment and Plan Start: 03/18/19 18:03 Freq: Status: Active Protocol: Document 05/03/19 08:18 LRN (Rec: 05/03/19 09:01 LRN [id number]) Physical Therapy Assessment Goals Four Impairment Decreased endurance of PF muscles Short Term Goal (STG) Pt will be able to hold a PF contraction 6 sec's prior to palpable or fatigue notable per EMG biofeedback. STG Duration 06/17/19 (05/03/19: GOAL NOT MET, early DC from PT) Retirement Goal (LTG) Pt will be able to hold a PF contraction 9 or more secs prior to fatigue with minimal onset of urinary leakage. LTG Duration 07/10/19 (05/03/19: GOAL NOT MET, early DC from PT) Three Impairment PF weakness with urinary leakage. Short Term Goal (STG) Improve PF strength to 2/5 STG Duration 04/16/19 (GOAL NOT ASSESSED due to time constraint) Retirement Goal (LTG) Improve PF strength to 3/5 with pt report of decrease in feeling of pressure in the lower abdominal region. LTG Duration 07/10/19 (GOAL NOT ASSESSED, but pt had no complaints of pressure) Two Impairment Poor coordination of PF contraction. Short Term Goal (STG) Improve awareness of being able to perform a PF contraction STG Duration 04/02/19 (05/03/19: GOAL MET ) Retirement Goal (LTG) Pt will be able to perform a PF contraction with minimal use of gluteal or abdominal muscles. LTG Duration 06/17/19 (05/03/19: GOAL MET) One Impairment Lacks self care HEP Cattle Broker Goal (LTG) Pt will be independent with a home exercise program. LTG Duration 07/10/19 (05/03/19: GOAL MET) Assessment Summary Assessment The pt has made some good improvement with therapy. Urinary leakage does not appear to be a concern for her at this time and she no longer notes a feeling of falling out. She still exhibits PF weakness and poor endurance per EMG Biofeedback and is aware of her weakness. She hopes on her HEP to be able to improve her PF strength and if she has further concerns in the future will seek another referral to return to physical therapy for continuation of her PF rehabilitation program. Physical Therapy Plan Frequency and Duration Frequency of Treatment 1x/Week Plan of Care Start Date 03/19/19 Plan of Care End Date 07/10/19 Discharge Physical Therapy Discharge Reasons Patient Request Discharge Comments Pt will seek a PT referral if she feels further therapy is needed after she returns from her trip. Thank you for your referral.
== END 2019-05-03 09:15 ==
LOC: PHYS 08:15
PROVIDERS: PCP Nurse Practitioner; Visit Provider Specialist
DX: R10.2 Pelvic and perineal pain (principal); N81.11 Cystocele, midline; M62.81 Muscle weakness (generalized); R29.898 Other symptoms and signs involving the musculoskeletal system
CPT/HCPCS: 97110; 97112; 97162; 97535

== ENCOUNTER → 2019-05-27 14:53 | Outpatient (CLI) | payer MEDICARE, OTHER, SELFPAY ==
[2018-10-16 13:07] VITALS: BMI 26.4
[2019-05-27 15:29] LABS: Influenza A - CEPHEID Flu A POSITIVE (NEGATIVE); Influenza B - CEPHEID Flu B NEGATIVE (NEGATIVE)
== END ==
PROVIDERS: PCP Nurse Practitioner; Visit Provider Nurse Practitioner
DX: G44.83 Primary cough headache (principal); R05 Cough; R50.9 Fever, unspecified
CPT/HCPCS: 87502

== ENCOUNTER → 2019-06-21 08:36 | Outpatient (CLI) | payer MEDICARE, OTHER, SELFPAY ==
[2018-10-16 13:07] VITALS: BMI 26.4
--- NOTE | 2019-06-21 08:52 | DI.US.S_ITS ---
ULTRASOUND OF LEFT BREAST: 06/21/2019 CLINICAL: Patient returns today to evaluate a density in the left breast. Comparison is made to exams dated: 12/14/2018 ultrasound, 06/15/2018 ultrasound, 06/15/2018 mammogram, 06/01/2018 mammogram, 05/30/2017 mammogram, and 05/29/2016 mammogram - [facility]. Color flow and real-time ultrasound of the left breast were performed. Mead scale images of the real-time examination were reviewed. There is a 0.6 cm x 0.5 cm x 0.5 cm oval complicated cyst with a septated internal wall versus two separate opposing cysts in the left breast at 6 o'clock in the retroareolar region. This oval complicated cyst is hypoechoic with a well-defined boundary and posterior acoustic enhancement. This abnormality is not significantly changed. Color flow imaging demonstrates that there is no vascularity present. There also is a 0.3 cm x 0.3 cm x 0.2 cm oval mass with a circumscribed margin in the left breast at 4 o'clock anterior depth 4 cm from the nipple. This oval mass is hypoechoic. This abnormality is not significantly changed. Color flow imaging demonstrates that there is no vascularity present. IMPRESSION: PROBABLY BENIGN The 0.6 cm x 0.5 cm x 0.5 cm oval complicated cyst in the left breast at 6 o'clock in the retroareolar region resembles a complicated cyst versus two immediately adjacent cysts and is probably benign. The stable 0.3 cm x 0.3 cm x 0.2 cm oval mass in the left breast at 4 o'clock anterior depth is probably benign. A follow-up mammogram and an ultrasound in 12 months is recommended to document two years of stability. This exam was interpreted at Station ID: [id number]. Electronically Signed By: Ruben Webb M.D. aty/:06/21/2019 12:49:32 letter sent: Followup Recommended Ultrasound BI-RADS: 3 Probably benign
--- NOTE | 2019-06-21 08:52 | DI.MG.S_ITS ---
BILATERAL DIGITAL DIAGNOSTIC MAMMOGRAM 3D/2D SHORT-TERM FOLLOW-UP: 06/21/2019 CLINICAL: Patient returns for a 6 month follow up of the left breast, due for bilateral imaging. Comparison is made to exams dated: 06/15/2018 mammogram, 06/01/2018 mammogram, and 05/30/2017 mammogram - [facility]. The tissue of both breasts is heterogeneously dense. This may lower the sensitivity of mammography. There is a 0.7 cm oval equal density focal asymmetry with a circumscribed margin in the left breast at 6 o'clock anterior depth. This is less prominent. No other significant masses, calcifications, or other findings are seen in either breast. IMPRESSION: INCOMPLETE: NEEDS ADDITIONAL IMAGING EVALUATION The 0.7 cm oval equal density focal asymmetry in the left breast is indeterminate. An ultrasound is recommended for further evaluation and is scheduled to immediately follow this study. This exam was interpreted at Station ID: [id number]. NOTE: For mammograms, a report in lay terms will be sent to the patient. Approximately 15% of breast malignancies will not be visualized mammographically. In the management of a palpable breast mass, a negative mammogram must not discourage biopsy of a clinically suspicious lesion. Electronically Signed By: Ruben Webb M.D. aty/:06/21/2019 09:51:07 ACR BI-RADS Category 0: Incomplete [id number]
== END ==
PROVIDERS: PCP Nurse Practitioner; Referring Provider Nurse Practitioner; Visit Provider Nurse Practitioner
DX: R92.8 Other abnormal and inconclusive findings on diagnostic imaging of breast (principal); N60.02 Solitary cyst of left breast; N63.23 Unspecified lump in the left breast, lower outer quadrant
CPT/HCPCS: 76642; 77066; G0279

== ENCOUNTER → 2020-01-19 07:34 | Outpatient (CLI) | payer MEDICARE, OTHER, SELFPAY ==
[2018-10-16 13:07] VITALS: BMI 26.4
[2020-01-19 09:09] LABS: Alanine Aminotransferase 23 IU/L (<35); Albumin 4.4 g/dL (3.5-5.0); Albumin Globulin Ratio 1.5 (1.0-2.8); Alkaline Phosphatase 68 U/L (38-126); Aspartate Aminotransferase 28 IU/L (14-36); BUN Creatinine Ratio 21.8 (6-22); Bilirubin Total 0.5 mg/dL (0.2-1.3); Blood Urea Nitrogen 17 mg/dL (7-17); Calcium 9.4 mg/dL (8.4-10.2); Carbon Dioxide 27 mmol/L (22-32); Chloride 104 mmol/L (98-107); Cholesterol 200 mg/dL (140-199); Estimated Glomerular Filt Rate > 60.0 mL/min (>60); Globulin 2.9 g/dL (1.7-4.1); Glucose 100 mg/dL (80-110); HDL Cholesterol 51 mg/dL (40-60); HEMOLYSIS < 15 (0-50); LDL Cholesterol Calculated 90 mg/dL (<100); Potassium 4.4 mmol/L (3.4-5.1); Sodium 139 mmol/L (137-145); Total Protein 7.3 g/dL (6.3-8.2); Triglycerides 297 mg/dL (35-150)
[2020-01-19 09:27] LABS: TSH w/ Reflex to FT4 5.67 uIU/mL (0.47-4.68)
[2020-01-19 09:35] LABS: Vitamin D 25 Hydroxy (D3) 65.6 ng/mL (30.0-100.0)
[2020-01-19 09:51] LABS: Vitamin B12 826 pg/mL (239-931)
== END ==
PROVIDERS: PCP Nurse Practitioner; Referring Provider Nurse Practitioner; Visit Provider Nurse Practitioner
DX: R53.83 Other fatigue (principal); I10 Essential (primary) hypertension; E03.9 Hypothyroidism, unspecified; E78.5 Hyperlipidemia, unspecified; E55.9 Vitamin D deficiency, unspecified
CPT/HCPCS: 36415; 80053; 80061; 82306; 82607; 84439; 84443

== ENCOUNTER → 2020-01-28 14:47 | Outpatient (CLI) | payer MEDICARE, OTHER, SELFPAY ==
[2018-10-16 13:07] VITALS: BMI 26.4
[2020-01-28 17:07] LABS: Free T3, Triiodothyronine Free 3.36 pg/mL (2.77-5.27); Free T4, Direct Thyroxine 0.91 ng/dL (0.78-2.19)
== END ==
PROVIDERS: PCP Nurse Practitioner; Referring Provider Nurse Practitioner; Visit Provider Nurse Practitioner
DX: E03.9 Hypothyroidism, unspecified (principal)
CPT/HCPCS: 36415; 84439; 84443; 84481

== ENCOUNTER → 2020-02-21 13:17 | Outpatient (CLI) | payer MEDICARE, OTHER, SELFPAY ==
[2018-10-16 13:07] VITALS: BMI 26.4
[2020-02-23 15:09] LABS: Fecal Immunochemical Test Negative (Negative)
== END ==
PROVIDERS: PCP Nurse Practitioner; Referring Provider Nurse Practitioner; Visit Provider Nurse Practitioner
DX: Z12.11 Encounter for screening for malignant neoplasm of colon (principal)
CPT/HCPCS: 82274

== ENCOUNTER → 2020-06-22 08:46 | Outpatient (CLI) | payer MEDICARE, OTHER, SELFPAY ==
[2018-10-16 13:07] VITALS: BMI 26.4
--- NOTE | 2020-06-22 08:51 | DI.US.S_ITS ---
LIMITED ULTRASOUND OF LEFT BREAST: 06/22/2020 CLINICAL: 6 month follow-up of cysts. Comparison is made to exams dated: 06/22/2020 mammogram, 06/21/2019 ultrasound, 06/21/2019 mammogram, 12/14/2018 ultrasound, 06/15/2018 ultrasound, and 06/15/2018 mammogram - Located [facility]. Color flow ultrasound of the left breast was performed. Mead scale images of the real-time examination were reviewed. There is a stable benign 0.7 cm x 0.4 cm x 0.5 cm oval complicated cyst with a septated internal wall in the left breast at 6 o'clock in the retroareolar region. This oval complicated cyst is hypoechoic with a well-defined boundary and posterior acoustic enhancement. Color flow imaging demonstrates that there is no vascularity present. This lesion has not significantly changed when compared to multiple prior exams dating back to 06/15/2018, and is therefore considered benign. There also is a stable benign 0.3 cm x 0.3 cm x 0.2 cm oval mass with a circumscribed margin in the left breast at 4 o'clock anterior depth 4 cm from the nipple. This oval mass is hypoechoic. Color flow imaging demonstrates that there is no vascularity present. This lesion has not significantly changed when compared to multiple prior exams dating back to 06/15/2018, and is therefore considered benign. IMPRESSION: BENIGN There is no sonographic evidence of malignancy. The stable 0.7 cm x 0.4 cm x 0.5 cm oval complicated cyst in the left breast at 6 o'clock in the retroareolar region resembles a complicated cyst and is benign. The stable 0.3 cm x 0.3 cm x 0.2 cm oval mass in the left breast at 4 o'clock anterior depth is benign. A 1 year screening mammogram is recommended. This exam was interpreted at Station ID: [id number]. Electronically Signed By: Estevan galvez/tamara:06/22/2020 12:30:02 letter sent: Normal Exam Ultrasound BI-RADS: 2 Benign
--- NOTE | 2020-06-22 08:51 | DI.MG.S_ITS ---
BILATERAL DIGITAL DIAGNOSTIC MAMMOGRAM 3D/2D SHORT-TERM FOLLOW-UP: 06/22/2020 CLINICAL: Short term follow up of the left breast, due for bilateral imaging. Comparison is made to exams dated: 06/21/2019 mammogram, 06/15/2018 mammogram, 06/01/2018 mammogram, 06/21/2019 ultrasound, and 05/30/2017 mammogram - [facility]. The tissue of both breasts is heterogeneously dense. This may lower the sensitivity of mammography. There is a 0.7 cm oval equal density focal asymmetry with a circumscribed margin in the left breast at 6 o'clock anterior depth. This is less prominent. No other significant masses, calcifications, or other findings are seen in either breast. IMPRESSION: INCOMPLETE: NEEDS ADDITIONAL IMAGING EVALUATION The 0.7 cm oval equal density focal asymmetry in the left breast is indeterminate. An ultrasound is recommended. An ultrasound is recommended for further evaluation and is scheduled to immediately follow this study. This exam was interpreted at Station ID: [id number]. NOTE: For mammograms, a report in lay terms will be sent to the patient. Approximately 15% of breast malignancies will not be visualized mammographically. In the management of a palpable breast mass, a negative mammogram must not discourage biopsy of a clinically suspicious lesion. Electronically Signed By: Estevan galvez/tamara:06/22/2020 12:27:24 ACR BI-RADS Category 0: Incomplete [id number]
[2020-06-22 10:52] LABS: Alanine Aminotransferase 22 IU/L (<35); Albumin 4.1 g/dL (3.5-5.0); Albumin Globulin Ratio 1.5 (1.0-2.8); Alkaline Phosphatase 60 U/L (38-126); Aspartate Aminotransferase 28 IU/L (14-36); BUN Creatinine Ratio 18.3 (6-22); Bilirubin Total 0.4 mg/dL (0.2-1.3); Blood Urea Nitrogen 13 mg/dL (7-17); Calcium 9.2 mg/dL (8.4-10.2); Carbon Dioxide 29 mmol/L (22-32); Chloride 104 mmol/L (98-107); Cholesterol 183 mg/dL (140-199); Estimated Glomerular Filt Rate > 60.0 mL/min (>60); Globulin 2.8 g/dL (1.7-4.1); Glucose 96 mg/dL (80-110); HDL Cholesterol 50 mg/dL (40-60); HEMOLYSIS < 15 (0-50); LDL Cholesterol Calculated 85 mg/dL (<100); Potassium 4.2 mmol/L (3.4-5.1); Sodium 137 mmol/L (137-145); Total Protein 6.9 g/dL (6.3-8.2); Triglycerides 242 mg/dL (35-150)
[2020-06-22 11:06] LABS: Free T3, Triiodothyronine Free 4.02 pg/mL (2.77-5.27); Free T4, Direct Thyroxine 0.84 ng/dL (0.78-2.19)
[2020-06-22 11:20] LABS: Thyroid Stimulating Hormone 3.59 uIU/mL (0.47-4.68)
== END ==
PROVIDERS: PCP Nurse Practitioner; Referring Provider Nurse Practitioner; Visit Provider Nurse Practitioner
DX: R92.8 Other abnormal and inconclusive findings on diagnostic imaging of breast (principal); N60.02 Solitary cyst of left breast; E03.9 Hypothyroidism, unspecified; E78.5 Hyperlipidemia, unspecified; I10 Essential (primary) hypertension
CPT/HCPCS: 36415; 76642; 77066; 80053; 80061; 84439; 84443; 84481; G0279

== ENCOUNTER → 2020-12-14 09:11 | Outpatient (CLI) | payer MEDICARE, OTHER, SELFPAY ==
[2018-10-16 13:07] VITALS: BMI 26.4
[2020-12-14 10:23] LABS: Alanine Aminotransferase 22 IU/L (<35); Albumin 4.2 g/dL (3.5-5.0); Albumin Globulin Ratio 1.5 (1.0-2.8); Alkaline Phosphatase 56 U/L (38-126); Aspartate Aminotransferase 28 IU/L (14-36); BUN Creatinine Ratio 15.8 (6-22); Bilirubin Total 0.3 mg/dL (0.2-1.3); Blood Urea Nitrogen 12 mg/dL (7-17); Calcium 9.8 mg/dL (8.4-10.2); Carbon Dioxide 28 mmol/L (22-32); Chloride 104 mmol/L (98-107); Cholesterol 192 mg/dL (140-199); Estimated Glomerular Filt Rate > 60.0 mL/min (>60); Globulin 2.8 g/dL (1.7-4.1); Glucose 97 mg/dL (80-110); HDL Cholesterol 53 mg/dL (40-60); HEMOLYSIS < 15 (0-50); LDL Cholesterol Calculated 84 mg/dL (<100); Potassium 4.3 mmol/L (3.4-5.1); Sodium 139 mmol/L (137-145); Triglycerides 275 mg/dL (35-150)
[2020-12-14 10:36] LABS: Free T3, Triiodothyronine Free 3.57 pg/mL (2.77-5.27); Free T4, Direct Thyroxine 0.85 ng/dL (0.78-2.19)
[2020-12-14 10:50] LABS: Thyroid Stimulating Hormone 3.68 uIU/mL (0.47-4.68)
[2020-12-14 10:59] LABS: Creatinine Urine Random 162.1 mg/dL
[2020-12-14 11:03] LABS: Microalbumin Urine Random < 0.6 mg/dL (0-1.6)
== END ==
PROVIDERS: PCP Nurse Practitioner; Referring Provider Nurse Practitioner; Visit Provider Nurse Practitioner
DX: M85.851 Other specified disorders of bone density and structure, right thigh (principal); Z78.0 Asymptomatic menopausal state; E78.1 Pure hyperglyceridemia; E78.5 Hyperlipidemia, unspecified; E03.9 Hypothyroidism, unspecified; I10 Essential (primary) hypertension; Z79.899 Other long term (current) drug therapy; Z82.62 Family history of osteoporosis
CPT/HCPCS: 36415; 77080; 80053; 80061; 82043; 82570; 84439; 84443; 84481

== ENCOUNTER 2020-12-26 11:50 | Emergency (ER) | payer MEDICARE, OTHER, SELFPAY ==
[2018-10-16 13:07] VITALS: BMI 26.4
[2020-12-26 11:58] VITALS: BP 166/95; PULSE 121; RESP 20; TEMP 35.9; O2SAT 98; BMI 26.6
[2020-12-26] MEDS: ONDANSETRON 4 MG/2 ML INJ (12:16)
[2020-12-26 12:51] VITALS: BP 159/78; PULSE 81; O2SAT 96
[2020-12-26 12:53] LABS: Add Manual Diff / Slide Review NO; Basophils Absolute Auto 100 /uL (0-100); Basophils Percent Auto 0.8 % (0-2); Eosinophils Absolute Auto 200 /uL (0-450); Eosinophils Percent Auto 1.7 % (2-4); Hemoglobin 12.9 g/dL (12.0-16.0); Lymphocytes Absolute Auto 4000 /uL (1100-4500); Lymphocytes Percent Auto 39.6 % (25-40); Mean Corpuscular HGB Conc 33.9 % (30-36); Mean Corpuscular Hemoglobin 31.9 PG (26-34); Mean Corpuscular Volume 94.1 fL (80-100); Monocytes Absolute Auto 700 /uL (0-900); Monocytes Percent Auto 6.5 % (3-14); Neutrophils Absolute Auto 5200 /uL (1500-7000); Neutrophils Percent Auto 51.4 % (50-75); Platelet Count 315 X10^3/uL (150-400); Red Blood Cell Count 4.04 X10^6/uL (4.0-5.2); Red Cell Distribution Width 13.2 % (11.6-14.8); White Blood Cell Count 10.1 X10^3/uL (4.5-11.0)
[2020-12-26 13:00] VITALS: BP 154/73; PULSE 82; O2SAT 98
[2020-12-26 13:01] LABS: Alanine Aminotransferase 23 IU/L (<35); Albumin 4.5 g/dL (3.5-5.0); Albumin Globulin Ratio 1.4 (1.0-2.8); Alkaline Phosphatase 73 U/L (38-126); Aspartate Aminotransferase 31 IU/L (14-36); BUN Creatinine Ratio 20.9 (6-22); Bilirubin Total 0.3 mg/dL (0.2-1.3); Blood Urea Nitrogen 14 mg/dL (7-17); Calcium 10.2 mg/dL (8.4-10.2); Carbon Dioxide 18 mmol/L (22-32); Chloride 101 mmol/L (98-107); Estimated Glomerular Filt Rate > 60.0 mL/min (>60); Globulin 3.2 g/dL (1.7-4.1); Glucose 145 mg/dL (80-110); HEMOLYSIS < 15 (0-50); Potassium 3.8 mmol/L (3.4-5.1); Sodium 134 mmol/L (137-145); Total Protein 7.7 g/dL (6.3-8.2)
[2020-12-26 13:08] LABS: COVID19 -Nasal RAPID Negative (Negative)
[2020-12-26 13:19] LABS: Lipase 108 U/L (23-300)
[2020-12-26 13:30] VITALS: BP 139/75; PULSE 78; O2SAT 96
[2020-12-26 14:00] VITALS: BP 151/82; PULSE 81; O2SAT 93
[2020-12-26] MEDS: ACETAMINOPHEN 325 MG TABLET 975 MG PO (14:28)
[2020-12-26] MEDS: MAG HYDROX/ALUMINUM/SIMETH SUS 20 ML, LIDOCAINE VISCOUS 2% 15 ML PO (14:28)
[2020-12-26] MEDS: FAMOTIDINE 20 MG/2 ML VIAL IV (14:28)
[2020-12-26 14:30] VITALS: BP 161/85; PULSE 92; O2SAT 95
--- NOTE | 2020-12-27 14:50 | ED_ITS ---
HPI - Headache <Keven Smith PA-C - Last Filed: 12/27/20 15:36> General Chief Complaint: Headache Stated Complaint: headache,stomach cramps,short of breath Time Seen by Provider: 12/26/20 12:56 Mode of arrival: Ambulatory Limitations: no limitations History of Present Illness HPI Narrative: 70-year-old female with a history of headache, hypertriglyceridemia, hyperlipidemia, hypothyroidism, hypertension presents to the ED with 1 day of 3/10 headache. Patient reports that she often experiences headaches, had onset of headache this morning, an hour later experienced nausea and 1 episode of vomiting. Patient endorses that this headache is similar to all her prior headaches. Patient also endorses that she started experiencing epigastric pain after vomiting. Patient denies fever, chills, chest pain, shortness of breath, cough, dysuria, visual disturbances, numbness, tingling, weakness, dizziness, syncope. Patient denies history of GERD, gastritis, PUD. Denies alcohol use. patient also endorses that she noted a small amount of blood on her underwear this morning, unclear etiology of bleeding. Patient notes she has a history of hemorrhoids that bleed on and off. Related Data Home Medications Medication Instructions Recorded Confirmed calcium carb-vit Q2-pfiedodbk-emer 500 mg PO DAILY #0 02/07/12 03/15/20 333 mg-200 unit-133 mg-5 mg tablet multivitamin 1 cap PO DAILY #0 02/07/12 03/15/20 cholecalciferol (vitamin D3) 50 2,000 unit PO DAILY #0 06/19/17 03/15/20 mcg (2,000 unit) capsule (Vitamin D3) coenzyme Q10 100 mg capsule 300 mg PO DAILY #0 cap 02/07/20 03/15/20 Previous Rx's Medication Instructions Recorded alendronate 70 mg tablet (Fosamax) 70 mg PO QWEEK #12 tab 02/07/20 omega-3 fatty acids 1,000 mg 1,000 mg PO BID #180 cap 06/22/20 capsule (Fish Oil Concentrate) estradiol (Estrace) 1 g VAG 3XW #42.5 gram 12/27/20 metoprolol succinate 25 mg 25 mg PO DAILY #90 tab 12/27/20 tablet,extended release 24 hr omeprazole 20 mg capsule,delayed 20 mg PO BID #180 cap 12/27/20 release rosuvastatin 5 mg tablet 5 mg PO DAILY #90 tab 12/27/20 valacyclovir 500 mg tablet 500 mg PO DAILY #90 tab 12/27/20 Allergies Allergy/AdvReac Type Severity Reaction Status Date / Time Penicillins [PENICILLINS] Allergy Mild RASH Verified 07/04/20 09:20 Sulfa (Sulfonamide Allergy Unknown RASH Verified 07/04/20 09:20 Antibiotics) [SULFA (SULFONAMIDE ANTIBIOTICS)] Review of Systems <Keven Smith PA-C - Last Filed: 12/27/20 15:36> Constitutional Constitutional: Denies chills, Denies fever(s), Denies frequent falls, Denies lethargy and Denies weakness Eyes Eyes: Denies change in vision, Denies eye discharge, Denies irritation and Denies loss of vision ENT Ears, Nose, Mouth, and Throat: Denies change in voice, Denies dizziness, Denies neck pain and Denies sore throat Cardiovascular Cardiovascular: Denies chest pain, Denies irregular heart rhythm, Denies lightheadedness, Denies palpitations, Denies dyspnea, Denies dyspnea on exertion and Denies orthopnea Respiratory Respiratory: Denies cough, Denies dyspnea, Denies dyspnea on exertion and Denies wheezing Gastrointestinal Gastrointestinal: Denies abdominal pain, Denies change in bowel habits, Denies diarrhea, Denies nausea and Denies vomiting Musculoskeletal Musculoskeletal: Denies neck pain and Denies numbness Neurologic Neurologic: Denies behavioral changes, Denies confusion, Denies dizziness, Denies frequent falls, Denies loss of vision, Denies numbness, Denies paresthesias and Denies weakness Comments: Psychiatric Psychiatric: Denies behavioral changes and Denies confusion Endocrine Endocrine: Denies palpitations Allergic/Immunologic Allergic/Immunologic: Denies wheezing Patient History <Keven Smith PA-C - Last Filed: 12/27/20 15:36> Medical History Age-related osteoporosis with current pathological fracture with routine healing (11/21/16) Anemia Chicken pox Chronic back pain Chronic bilateral low back pain without sciatica (11/21/16) Compression fracture (~2014) Cystocele Fibroids Frequent UTI Hay fever Hemorrhoid Herpes simplex type 1 infection Hyperlipidemia Hypertriglyceridemia Measles Mumps Osteoarthritis Osteoporosis Prolapsed bladder Rectocele Recurrent sinusitis Scoliosis Vision disorder Surgical History Ankle pain (~1977) H/O bilateral salpingo-oophorectomy (~10/2018) History of cataract removal with insertion of prosthetic lens (08/11/13) History of cataract removal with insertion of prosthetic lens (09/01/13) History of colonoscopy History of foot surgery (~2006) Status post appendectomy (~08/1959) Status post sclerotherapy of varicose veins Status post sclerotherapy of varicose veins (~03/2011) Family History Brother Age: 70 High cholesterol Pre-diabetes Child Age: 45 Cardiomyopathy PVC (premature ventricular contraction) Hypothyroidism Child Age: 41 Back problem Father Heart disease Hypertension High cholesterol Mother Diabetes mellitus Heart disease High cholesterol Stroke Mental health problem Sister Age: 98 Autoimmune disease High cholesterol History of removal of both ovaries Fibromyalgia Tate Hazel infection Grandfather Diabetes mellitus Grandmother Mental health problem Dementia Grandfather Cancer Social History household members: spouse Smoking Status: Former smoker alcohol intake: current substance use type: does not use Smoking Status: Former smoker alcohol intake frequency: a few times a week Substance Use Type: does not use Exam <Keven Smith PA-C - Last Filed: 12/27/20 15:36> Initial Vital Signs Initial Vital Signs: Vital Signs Temperature 96.6 F L 12/26/20 11:58 Pulse Rate 121 H 12/26/20 11:58 Respiratory Rate 20 12/26/20 11:58 Blood Pressure 166/95 H 12/26/20 11:58 Pulse Oximetry 98 12/26/20 11:58 Const General: cooperative HENMT Head: normocephalic and atraumatic Ears: external ears normal and TM's normal bilaterally Nose: external nose normal and No nasal discharge Face and sinus: sinuses nontender, face symmetric, no sinus tenderness and No dry mucous membranes Mouth: oral mucosae normal and moist mucous membranes Teeth and gingiva: dentition normal Throat: tonsils normal and uvula midline Eyes General: appearance normal, both eyes and all related structures Eyelids: eyelids normal Conjunctivae: conjunctivae normal Sclera: sclerae normal Pupils: PERRL EOM: EOM intact bilaterally Neck Neck: normal visual inspection, trachea midline, No lymphadenopathy, No midline deformity and No JVD Lymphatic: No lymphedema Chest Chest: normal inspection of the chest Resp Effort & Inspection: normal respiratory effort, able to speak in complete sentences, no respiratory distress and no use of accessory muscles Auscultation: clear to auscultation bilaterally, no rales, no rhonchi and no wheezes Cardio Rate: regular rate Rhythm: regular rhythm Heart Sounds: no click, no gallops, no murmurs and no rubs Pulses: normal peripheral pulses GI Inspection: non-distended Palpation: soft, no hepatosplenomegaly, No guarding, No pulsatile mass and tender (mild Epigastric TTP) Auscultation: normal bowel sounds General: No CVA tenderness External Female Exam: normal external appearance and normal appearance of the urethra Other: bimanual exam negative for vaginal bleeding. External hemorrhoids visualized, no signs of bleeding. Back/Spine/Pelvis Back: No CVA tenderness Cervical Spine: cervical ROM normal and No pain with cervical ROM Thoracic/Lumbar Spine: thoracic and lumbar spine normal to inspection Skin General: no rashes or lesions noted, No jaundice and No petechiae Neuro General: patient alert, patient oriented x3, gait normal and no focal motor deficits Speech: speech normal Extrem General: full ROM, no clubbing, cyanosis or edema, no pedal edema and no calf tenderness Psych Appearance: well kempt Mental Status: mental status grossly normal Attitude: cooperative Thought Content: normal and suicidality Judgment: judgment good <Rufino Griffith DO - Last Filed: 01/11/21 07:10> Initial Vital Signs Initial Vital Signs: Vital Signs Temperature 96.6 F L 12/26/20 11:58 Pulse Rate 121 H 12/26/20 11:58 Respiratory Rate 20 12/26/20 11:58 Blood Pressure 166/95 H 12/26/20 11:58 Pulse Oximetry 98 12/26/20 11:58 Course <Keven Smith PA-C - Last Filed: 12/27/20 15:36> Course Course Narrative: Patient's symptoms improved with a GI cocktail and Tylenol. Will discharge home with ED return precautions. Orders Ordered: Discontinued Medications Acetaminophen (Acetaminophen 325 Mg Tablet) 975 mg PO NOW ONE Stop: 12/26/20 14:10 Last Admin: 12/26/20 14:28 Dose: 975 mg Documented by: YULISSA Mead Hydrox/Mg Hydrox/Simethicone 20 ml/ Lidocaine HCl 15 ml 0 ml PO NOW ONE Stop: 12/26/20 14:09 Last Admin: 12/26/20 14:28 Dose: 35 ml Documented by: YULISSA Famotidine (Famotidine 20 Mg/2 Ml Vial) 20 mg IV NOW [facility] Last Admin: 12/26/20 14:28 Dose: 20 mg Documented by: YULISSA <Rufino Griffith DO - Last Filed: 01/11/21 07:10> Orders Ordered: Discontinued Medications Acetaminophen (Acetaminophen 325 Mg Tablet) 975 mg PO NOW ONE Stop: 12/26/20 14:10 Last Admin: 12/26/20 14:28 Dose: 975 mg Documented by: YULISSA Mead Hydrox/Mg Hydrox/Simethicone 20 ml/ Lidocaine HCl 15 ml 0 ml PO NOW ONE Stop: 12/26/20 14:09 Last Admin: 12/26/20 14:28 Dose: 35 ml Documented by: YULISSA Famotidine (Famotidine 20 Mg/2 Ml Vial) 20 mg IV NOW [facility] Last Admin: 12/26/20 14:28 Dose: 20 mg Documented by: YULISSA MDM - Headache <Keven Smith PA-C - Last Filed: 12/27/20 15:36> Medical Records Attestation: I reviewed the patient's medical records. Lab Data Attestation: I reviewed the patient's lab results. Lab results narrative: Unlikely pancreatitis given lipase WNL Result diagrams: 12/26/20 12:10 12/26/20 12:40 Labs: Lab Results 12/26/20 12/26/20 12/26/20 Range/Units 12:09 12:10 12:40 WBC 10.1 (4.5-11.0) X10^3/uL RBC 4.04 (4.0-5.2) X10^6/uL Hgb 12.9 (12.0-16.0) g/dL Hct 38.0 (36-46) % MCV 94.1 (80-100) fL MCH 31.9 (26-34) PG MCHC 33.9 (30-36) % RDW 13.2 (11.6-14.8) % Plt Count 315 (150-400) X10^3/uL Neut % (Auto) 51.4 (50-75) % Lymph % (Auto) 39.6 (25-40) % Rich % (Auto) 6.5 (3-14) % Eos % (Auto) 1.7 L (2-4) % Baso % (Auto) 0.8 (0-2) % Neut # (Auto) 5200 (0336-3031) /uL Lymph # (Auto) 4000 (4691-1581) /uL Rich # (Auto) 700 (0-900) /uL Eos # (Auto) 200 (0-450) /uL Baso # (Auto) 100 (0-100) /uL Sodium 134 L (137-145) mmol/L Potassium 3.8 (3.4-5.1) mmol/L Chloride 101 (98-107) mmol/L Carbon Dioxide 18 L (22-32) mmol/L BUN 14 (7-17) mg/dL Creatinine 0.67 (0.52-1.04) mg/dL Estimated GFR > 60.0 (>60) mL/min BUN/Creatinine Ratio 20.9 (6-22) Glucose 145 H (80-110) mg/dL Calcium 10.2 (8.4-10.2) mg/dL Total Bilirubin 0.3 (0.2-1.3) mg/dL AST 31 (14-36) IU/L ALT 23 (<35) IU/L Alkaline Phosphatase 73 (38-126) U/L Total Protein 7.7 (6.3-8.2) g/dL Albumin 4.5 (3.5-5.0) g/dL Globulin 3.2 (1.7-4.1) g/dL Albumin/Globulin Ratio 1.4 (1.0-2.8) Lipase 108 (23-300) U/L SARS-CoV-2 (PCR) Negative (Negative) MDM Narrative Medical decision making narrative: 70-year-old female with a history of headache, hypertriglyceridemia, hyperlipidemia, hypothyroidism, hypertension presents to the ED with 1 day of 3/10 headache. concern for primary headache versus gastritis versus GERD versus PUD versus pancreatitis. Unlikely CVA, intracranial bleed given similar headache, neurologically intact. unlikely pancreatitis, given history,physical exam and symptoms, but will check lipase. Will order labs, give GI cocktail, Pepcid, Tylenol. Given benign abdomen exam, no imaging indicated. Will reassess. <Rufino Griffith, - Last Filed: 01/11/21 07:10> Lab Data Labs: Lab Results 12/26/20 12/26/20 12/26/20 Range/Units 12:09 12:10 12:40 WBC 10.1 (4.5-11.0) X10^3/uL RBC 4.04 (4.0-5.2) X10^6/uL Hgb 12.9 (12.0-16.0) g/dL Hct 38.0 (36-46) % MCV 94.1 (80-100) fL MCH 31.9 (26-34) PG MCHC 33.9 (30-36) % RDW 13.2 (11.6-14.8) % Plt Count 315 (150-400) X10^3/uL Neut % (Auto) 51.4 (50-75) % Lymph % (Auto) 39.6 (25-40) % Rich % (Auto) 6.5 (3-14) % Eos % (Auto) 1.7 L (2-4) % Baso % (Auto) 0.8 (0-2) % Neut # (Auto) 5200 (8217-9422) /uL Lymph # (Auto) 4000 (6070-1111) /uL Rich # (Auto) 700 (0-900) /uL Eos # (Auto) 200 (0-450) /uL Baso # (Auto) 100 (0-100) /uL Sodium 134 L (137-145) mmol/L Potassium 3.8 (3.4-5.1) mmol/L Chloride 101 (98-107) mmol/L Carbon Dioxide 18 L (22-32) mmol/L BUN 14 (7-17) mg/dL Creatinine 0.67 (0.52-1.04) mg/dL Estimated GFR > 60.0 (>60) mL/min BUN/Creatinine Ratio 20.9 (6-22) Glucose 145 H (80-110) mg/dL Calcium 10.2 (8.4-10.2) mg/dL Total Bilirubin 0.3 (0.2-1.3) mg/dL AST 31 (14-36) IU/L ALT 23 (<35) IU/L Alkaline Phosphatase 73 (38-126) U/L Total Protein 7.7 (6.3-8.2) g/dL Albumin 4.5 (3.5-5.0) g/dL Globulin 3.2 (1.7-4.1) g/dL Albumin/Globulin Ratio 1.4 (1.0-2.8) Lipase 108 (23-300) U/L SARS-CoV-2 (PCR) Negative (Negative) Discharge Plan Departure Patient Disposition: Home Clinical Impression: Headache Instructions: DI for Headache Prescriptions: No Action multivitamin Capsule 1 cap PO DAILY Qty: 0 RF: 0 calcium carb-D3-mag [id number] [phone] pl-yjes-ew-mg Tablet 500 mg PO DAILY Qty: 0 RF: 0 cholecalciferol (vitamin D3) [Vitamin D3] 2,000 UNIT capsule 2,000 unit PO DAILY Qty: 0 RF: 0 coenzyme Q10 100 mg capsule 300 mg PO DAILY Qty: 0 RF: 0 omega-3 fatty acids [Fish Oil Concentrate] 1,000 mg capsule 1,000 mg PO BID Qty: 180 RF: 3 estradiol [Estrace] 0.01 % (0.1 mg/gram) cream 1 g VAG 3XW Qty: 42.5 RF: 3 metoprolol succinate 25 mg tablet extended release 24 hr 25 mg PO DAILY Qty: 90 RF: 3 rosuvastatin 5 mg tablet 5 mg PO DAILY Qty: 90 RF: 3 Hold Instructions: body aches valacyclovir 500 mg tablet 500 mg PO DAILY Qty: 90 RF: 3 omeprazole 20 mg capsule,delayed release(DR/EC) 20 mg PO BID Qty: 180 RF: 0 alendronate [Fosamax] 70 mg tablet 70 mg PO QWEEK Qty: 12 RF: 3 Hold Instructions: epigastric pain Referrals: Sanjuana Paulson ARNP [Primary Care Provider] - <Rufino Griffith DO - Last Filed: 01/11/21 07:10> Cosign ED Attending Cosignature Attestation: Dr Griffith Co-Sign Statement: I was available for consultation during this patient's emergency department visit. This chart is signed by myself for administrative purposes only. I did not have direct contact with this patient during this visit. They were seen independently by the APC.
== END 2020-12-26 15:21 | disposition home or self-care (01) ==
PROVIDERS: Emergency Medicine; Emergency Provider Student in an Organized Health Care Education/Training Program; PCP Nurse Practitioner
DX: R51.9 Headache, unspecified (principal); R11.2 Nausea with vomiting, unspecified; R10.9 Unspecified abdominal pain; R06.02 Shortness of breath; Z20.822 Contact with and (suspected) exposure to COVID-19
CPT/HCPCS: 36415; 80053; 83690; 85025; 87635; 93005; 93010; 96374; 99284; C9803; J2405

== ENCOUNTER → 2020-12-28 10:35 | Outpatient (CLI) | payer MEDICARE, OTHER, SELFPAY ==
[2020-12-27 09:16] VITALS: BMI 26.4
--- NOTE | 2020-12-28 10:38 | DI.US.S_ITS ---
PROCEDURE: US ABDOMEN COMPLETE INDICATIONS: EPIGASTRIC PAIN TECHNIQUE: Real-time scanning was performed of the abdominal and retroperitoneal organs, with image documentation. COMPARISON: [facility], , US ABDOMEN COMPLETE, 09/07/2018, 13:08. FINDINGS: Liver: Liver is normal in size and homogeneous in echotexture. There is an irregular, non masslike region of homogeneous hyperechogenicity measuring approximately 2.6 x 1.4 x 1.2 cm adjacent to the rikki hepatis. Overall the liver demonstrates mildly hyperdense parenchyma. Gallbladder: The gallbladder is normal without stones, sludge, wall thickening, or pericholecystic fluid. Biliary ducts: Intrahepatic bile ducts are non-dilated. Extrahepatic bile duct caliber measures four mm. Normal is 6-7 mm or less in diameter, or 10 mm or less post-cholecystectomy. Pancreas: Visualized portions of the pancreas are sonographically normal. Spleen: Spleen is normal in size and homogeneous in echotexture. Kidneys: Kidneys are normal in size and echotexture. Right kidney measures 11.0 cm long; left kidney measures 11.3 cm long. No hydronephrosis or nephrolithiasis. No solid masses. Aorta: Visualized aorta is normal in caliber at less than 3 cm. Iliacs: Proximal common iliac arteries are normal in caliber at less than 2.5 cm. IVC: Intrahepatic inferior vena cava is patent. Miscellaneous: No free abdominal fluid. IMPRESSION: 1. Mildly hyperechoic hepatic parenchyma with a 2.6 cm focal area of hyperechogenicity in the rikki hepatis. This is most likely focal fat deposition and was present on the prior study, though not measured. For confirmation, MR of the liver can be considered versus follow-up ultrasound in six months to document stability. 2. Normal gallbladder. Dictated by: Bernadette Mann M.D. on 12/28/2020 at 14:32 Approved by: Bernadette Mann M.D. on 12/28/2020 at 14:41
== END ==
PROVIDERS: PCP Nurse Practitioner; Referring Provider Nurse Practitioner; Visit Provider Nurse Practitioner
DX: R10.13 Epigastric pain (principal)
CPT/HCPCS: 76700

== ENCOUNTER → 2021-07-13 07:56 | Outpatient (CLI) | payer MEDICARE, OTHER, SELFPAY ==
[2020-12-27 09:16] VITALS: BMI 26.4
--- NOTE | 2021-07-13 07:58 | DI.MG.S_ITS ---
BILATERAL DIGITAL SCREENING MAMMOGRAM 3D/2D WITH CAD: 07/13/2021 CLINICAL: Routine screening. Comparison is made to exams dated: 06/22/2020 mammogram, 06/21/2019 mammogram, and 06/01/2018 mammogram - [facility]. There are scattered fibroglandular elements in both breasts. Current study was also evaluated with a Computer Aided Detection (CAD) system. There are benign calcifications in both breasts. No significant masses, calcifications, or other findings are seen in either breast. There has been no significant interval change. IMPRESSION: BENIGN There is no mammographic evidence of malignancy. A 1 year screening mammogram is recommended. This exam was interpreted at Station ID: [id number]. NOTE: For mammograms, a report in lay terms will be sent to the patient. Approximately 15% of breast malignancies will not be visualized mammographically. In the management of a palpable breast mass, a negative mammogram must not discourage biopsy of a clinically suspicious lesion. Electronically Signed By: Deion Gao acr/penrad:07/13/2021 09:50:45 letter sent: Normal Exam ACR BI-RADS Category 2: Benign Finding(s) 3342F
[2021-07-13 09:55] LABS: Alanine Aminotransferase 18 IU/L (<35); Albumin 4.5 g/dL (3.5-5.0); Albumin Globulin Ratio 1.4 (1.0-2.8); Alkaline Phosphatase 52 U/L (38-126); Aspartate Aminotransferase 25 IU/L (14-36); BUN Creatinine Ratio 17.7 (6-22); Bilirubin Total 0.5 mg/dL (0.2-1.3); Blood Urea Nitrogen 14 mg/dL (7-17); Calcium 9.6 mg/dL (8.4-10.2); Carbon Dioxide 31 mmol/L (22-32); Chloride 104 mmol/L (98-107); Cholesterol 246 mg/dL (140-199); Estimated Glomerular Filt Rate > 60.0 mL/min (>60); Globulin 3.3 g/dL (1.7-4.1); Glucose 94 mg/dL (80-110); HDL Cholesterol 44 mg/dL (40-60); HEMOLYSIS < 15 (0-50); LDL Cholesterol Calculated 161 mg/dL (<100); Potassium 4.2 mmol/L (3.4-5.1); Sodium 139 mmol/L (137-145); Total Protein 7.8 g/dL (6.3-8.2); Triglycerides 206 mg/dL (35-150)
[2021-07-13 10:24] LABS: Creatinine Urine Random 158.9 mg/dL
[2021-07-13 10:56] LABS: Free T3, Triiodothyronine Free 3.26 pg/mL (2.77-5.27); Free T4, Direct Thyroxine 0.96 ng/dL (0.78-2.19)
[2021-07-13 11:10] LABS: Thyroid Stimulating Hormone 3.74 uIU/mL (0.47-4.68)
== END ==
PROVIDERS: PCP Nurse Practitioner; Referring Provider Nurse Practitioner; Visit Provider Nurse Practitioner
DX: Z12.31 Encounter for screening mammogram for malignant neoplasm of breast (principal); E78.1 Pure hyperglyceridemia; E78.2 Mixed hyperlipidemia; E03.9 Hypothyroidism, unspecified; I10 Essential (primary) hypertension; Z79.899 Other long term (current) drug therapy
CPT/HCPCS: 36415; 77063; 77067; 80053; 80061; 82043; 82570; 84439; 84443; 84481

== ENCOUNTER → 2021-08-10 08:58 | Outpatient (CLI) | payer MEDICARE, OTHER, SELFPAY ==
[2020-12-27 09:16] VITALS: BMI 26.4
--- NOTE | 2021-08-10 08:59 | DI.US.S_ITS ---
PROCEDURE: US ABDOMEN LIMITED INDICATIONS: FOLLOW-UP FATTY DEPOSIT ON LIVER TECHNIQUE: Real-time focused scanning was performed of the abdomen, with image documentation. COMPARISON: [facility], US, US ABDOMEN COMPLETE, 09/07/2018, 13:08. [facility], US, US ABDOMEN COMPLETE, 12/28/2020, 10:06. FINDINGS: A 2.9 x 1.5 x 1.7 cm echogenic focus is seen in the rikki hepatis, which does not appear to demonstrate vascularity. IMPRESSION: Echogenic focus in the rikki hepatic, which may reflect a hemangioma or focal fatty deposition. Consider magnetic resonance imaging for further evaluation as clinically warranted. Dictated by: Chas Silva M.D. on 08/10/2021 at 10:32 Approved by: Chas Silva M.D. on 08/10/2021 at 10:34
== END ==
PROVIDERS: PCP Nurse Practitioner; Referring Provider Nurse Practitioner; Visit Provider Nurse Practitioner
DX: K76.0 Fatty (change of) liver, not elsewhere classified (principal)
CPT/HCPCS: 76705

== ENCOUNTER → 2021-10-15 06:55 | Outpatient (CLI) | payer MEDICARE, OTHER, SELFPAY ==
[2020-12-27 09:16] VITALS: BMI 26.4
[2021-10-15 08:13] LABS: Alanine Aminotransferase 20 IU/L (<35); Albumin 4.5 g/dL (3.5-5.0); Albumin Globulin Ratio 1.6 (1.0-2.8); Alkaline Phosphatase 73 U/L (38-126); Aspartate Aminotransferase 27 IU/L (14-36); BUN Creatinine Ratio 19.8 (6-22); Bilirubin Total 0.5 mg/dL (0.2-1.3); Blood Urea Nitrogen 16 mg/dL (7-17); Calcium 9.6 mg/dL (8.4-10.2); Carbon Dioxide 27 mmol/L (22-32); Chloride 104 mmol/L (98-107); Cholesterol 208 mg/dL (140-199); Estimated Glomerular Filt Rate > 60 mL/min (>60); Globulin 2.9 g/dL (1.7-4.1); Glucose 102 mg/dL (80-110); HDL Cholesterol 53 mg/dL (40-60); HEMOLYSIS < 15 (0-50); LDL Cholesterol Calculated 105 mg/dL (<100); Potassium 4.2 mmol/L (3.4-5.1); Sodium 138 mmol/L (137-145); Total Protein 7.4 g/dL (6.3-8.2); Triglycerides 248 mg/dL (35-150)
== END ==
PROVIDERS: PCP Nurse Practitioner; Referring Provider Nurse Practitioner; Visit Provider Nurse Practitioner
DX: E78.1 Pure hyperglyceridemia (principal); E78.2 Mixed hyperlipidemia; E78.5 Hyperlipidemia, unspecified
CPT/HCPCS: 36415; 80053; 80061

== ENCOUNTER → 2021-10-23 15:12 | Outpatient (CLI) | payer MEDICARE, OTHER, SELFPAY ==
[2020-12-27 09:16] VITALS: BMI 26.4
[2021-10-23 18:01] LABS: COVID19 -Nasal RAPID Negative (Negative)
== END ==
PROVIDERS: PCP Nurse Practitioner; Visit Provider Surgery
DX: Z20.822 Contact with and (suspected) exposure to COVID-19 (principal); Z01.812 Encounter for preprocedural laboratory examination
CPT/HCPCS: 87635; C9803

== ENCOUNTER 2021-10-24 13:51 | Day surgery (SDC) | payer MEDICARE, OTHER, SELFPAY ==
[2020-12-27 09:16] VITALS: BMI 26.4
--- NOTE | 2021-10-24 | PATH_ITS ---
[facility] Accession Number: [id number] . 01 Material submitted: . gastrointestinal site - IRREGULAR Z-LINE . 01 Clinical history: . A: R/O NARAYAN'S . 01 Diagnosis: Esophagus, Z Line, Biopsy: Proximal gastric-type mucosa with focal specialized intestinal metaplasia; please see comment. Negative for dysplasia or malignancy. V 10/26/2021 1139 Local . 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 . 01 Electronically signed: . Hawk Pireto MD, PhD, Pathologist NPI- [id number] . 01 Gross description: . IRREGULAR Z-LINE: Received in formalin are 2 fragment(s) of dimas, soft tissue measuring 0.2 x 0.2 x 0.1 cm to 0.2 x 0.1 x 0.1 cm submitted entirely in 1 cassette(s) /CPE 10/25/2021 0734 Local . 01 Pathologist provided ICD-10: K22.70 . 01 CPT . 565568 Specimen Comment: A courtesy copy of this report has been sent to [phone] Performed at: 01 [facility] [address] [place] [address] [address], [place], [place] [id number] MD Ezio Llanos MD Phone: [phone]
[2021-10-24] MEDS: LACTATED RINGERS 1,000 ML 84 ML IV (14:30)
[2021-10-24 14:36] VITALS: BP 151/95; PULSE 94; RESP 18; TEMP 36.3; O2SAT 96; BMI 26.6
[2021-10-24 14:55] VITALS: BMI 26.6
--- NOTE | 2021-10-24 15:26 | P.HP_ITS ---
History of Present Illness History of Present Illness Chief complaint: EGD Patient History Medical History Age-related osteoporosis with current pathological fracture with routine healing (11/21/16) Anemia Chicken pox Chronic back pain Chronic bilateral low back pain without sciatica (11/21/16) Compression fracture (~2014) Cystocele Fibroids Frequent UTI Hay fever Hemorrhoid Herpes simplex type 1 infection Hyperlipidemia Hypertriglyceridemia Measles Mumps Osteoarthritis Osteoporosis Prolapsed bladder Rectocele Recurrent sinusitis Scoliosis Vision disorder Surgical History Ankle pain (~1977) H/O bilateral salpingo-oophorectomy (~10/2018) History of cataract removal with insertion of prosthetic lens (08/11/13) History of cataract removal with insertion of prosthetic lens (09/01/13) History of colonoscopy History of foot surgery (~2006) Status post appendectomy (~08/1959) Status post sclerotherapy of varicose veins Status post sclerotherapy of varicose veins (~03/2011) Family & Social History Family History Brother Age: 71 High cholesterol Pre-diabetes Child Age: 46 Cardiomyopathy PVC (premature ventricular contraction) Hypothyroidism Child Age: 42 Back problem Father Heart disease Hypertension High cholesterol Mother Diabetes mellitus Heart disease High cholesterol Stroke Mental health problem Sister Age: 99 Autoimmune disease High cholesterol History of removal of both ovaries Fibromyalgia Tate Hazel infection Grandfather Diabetes mellitus Grandmother Mental health problem Dementia Grandfather Cancer Social History: household members spouse Tobacco & Substance use: Smoking Status Former smoker alcohol intake current alcohol intake frequency a few times a week Substance Use Type does not use Meds Home Medications and Allergies Home Medications Medication Instructions Recorded Confirmed Type multivitamin 1 cap PO DAILY ##0 02/07/12 10/24/21 History cholecalciferol (vitamin D3) 50 2,000 unit PO DAILY ##0 06/19/17 10/24/21 History mcg (2,000 unit) capsule (Vitamin D3) coenzyme Q10 100 mg capsule 300 mg PO DAILY #0 caps 02/07/20 10/24/21 History omega-3 fatty acids 1,000 mg 1,000 mg PO BID #180 caps 06/22/20 10/24/21 Rx capsule (Fish Oil Concentrate) metoprolol succinate 25 mg 25 mg PO DAILY #90 tabs 12/27/20 10/24/21 Rx tablet,extended release 24 hr valacyclovir 500 mg tablet 500 mg PO DAILY #90 tabs 12/27/20 10/24/21 Rx sumatriptan succinate 25 mg tablet See Rx Instructions PO .COMPLEX 02/19/21 10/24/21 Rx #30 tabs acetaminophen 650 mg 650 mg PO Q12H 07/23/21 10/24/21 History tablet,extended release amitriptyline 10 mg tablet 10 mg PO BEDTIME #90 tabs 07/23/21 10/24/21 Rx calcium carb-vit Y1-[id number]-xxzl 1 tab PO BID #0 tabs 07/23/21 10/24/21 History 333 mg-200 unit-133 mg-5 mg tablet estradiol 0.01% (0.1 mg/gram) 1 g vaginal 3XW #42.5 grams 07/23/21 10/24/21 Rx vaginal cream (Estrace) ezetimibe 10 mg tablet (Zetia) 10 mg PO DAILY #90 tabs 10/15/21 10/24/21 Rx niacin 750 mg tablet,extended 750 mg PO BEDTIME #90 tabs 10/15/21 10/24/21 Rx release 24 hr (Niaspan) Allergies Allergy/AdvReac Type Severity Reaction Status Date / Time Penicillins [PENICILLINS] Allergy Mild RASH Verified 10/24/21 14:44 Sulfa (Sulfonamide Allergy Unknown RASH Verified 10/24/21 14:44 Antibiotics) [SULFA (SULFONAMIDE ANTIBIOTICS)] [id number] Reductase AdvReac Mild muscle Verified 10/24/21 14:44 Inhibitor aches and [Tfzgrjb-Yvw-Qgy Reductase pain Inhibitor] Review of Systems Review of Systems Narrative: Negative Exam Vital Signs (past 8 hours): - 10/24/21 14:36 Temperature 97.3 F L Pulse Rate 94 H Respiratory Rate 18 Blood Pressure 151/95 H Pulse Oximetry 96 Oxygen Delivery Method Room Air Oxygen Delivery Method Room Air Narrative Exam Narrative: Awake alert and oriented x3, pupils equal round reactive to light, oropharynx clear, heart regular rate and rhythm, lungs clear to auscultation bilaterally, abdomen nontender and nondistended, extremities without edema, no gross neurolog ic deficits noted Assessment & Plan Assessment & Plan narrative: Dyspepsia for EGD today Time Spent With Patient Critical Care time: I spent a total of [] minutes of critical care time on this patient's care today; this time is exclusive of procedural time.
--- NOTE | 2021-10-24 15:37 | PM.OP.EGD ---
Operative Date/Time/Diagnoses Date of procedure: 10/24/21 Procedure & Clinicians Study performed: EGD with cold biopsy Indications: Dyspepsia. Suspected GERD not responding to reflux therapy. Procedure Notes Procedure in detail: Prior to the procedure, history and physical was performed, and patient medications and allergies were reviewed. Preprocedure nursing history and assessment was reviewed. Patient identification and proposed procedure were verified by the physician and nurse in the procedure room. The physical status of the patient was reassessed after the procedure. After informed consent was obtained including risks, benefits, and alternatives, the scope was passed under direct vision. Throughout the procedure, the patient's blood pressure, pulse, and oxygen saturations were monitored continuously. The upper endoscope was introduced through the mouth and advanced to the 2nd portion of the duodenum. Retroflexion was performed in the stomach. The patient tolerated the procedure well. The upper and mid portion of the esophagus was normal appearing. There were 2 tongues of salmon-colored mucosa and scattered islands of salmon colored mucosa in the distal esophagus. Biopsied to rule out Magana's esophagus. The maximal extent was 1 cm from the upper extent of the gastric folds. The Z-line was located at 39 cm. Upper extent of the gastric folds located at 40 cm. Hill grade I GE flap configuration. Normal appearing stomach. Normal appearing examined duodenum. Complications: other (EBL minimal. No complications) Impression: Tongues and islands of salmon-colored mucosa in the distal esophagus. Biopsied to rule out Magana's esophagus. Normal-appearing stomach Normal appearing examined duodenum Post-procedure Plan for aftercare: Follow-up pathology results Resume previous diet Follow anti-reflux diet and lifestyle Resume home medications Follow-up in GI clinic at next available appointment Patient has a contact number available for emergencies. The signs and symptoms of potential delayed complications were discussed with the patient. Return to normal activities tomorrow. Written discharge instructions were provided to the patient. Discharge home with escort
[2021-10-24 15:42] VITALS: BP 130/84; PULSE 82; RESP 18; TEMP 36.3; O2SAT 94
[2021-10-24 15:47] VITALS: BP 148/79; PULSE 87; RESP 16; O2SAT 96
[2021-10-24 15:52] VITALS: BP 143/93; PULSE 76; RESP 18; O2SAT 97
[2021-10-24 15:58] VITALS: BP 131/82; PULSE 81; RESP 18; TEMP 36.5; O2SAT 97
--- NOTE | 2021-10-24 16:09 | SUR.PHASEII ---
Discharge instructions given to pt. pt states she understands discharge instructions. pt to be discharged with her . pt had 2 cups of juice. No complaints voiced no distress noted.
== END 2021-10-24 16:17 | disposition home or self-care (01) ==
PROVIDERS: PCP Nurse Practitioner; Referring Provider Internal Medicine; Visit Provider Internal Medicine
PROC: 0DJ08ZZ Inspection of Upper Intestinal Tract, Via Natural or Artificial Opening Endoscopic (ICD-10-PCS; CPT 43235; principal; 2021-10-24 15:00)
DX: K22.70 Barrett's esophagus without dysplasia (principal); K30 Functional dyspepsia; I10 Essential (primary) hypertension
CPT/HCPCS: 43239; J2704; J3010

== ENCOUNTER → 2022-01-18 06:53 | Outpatient (CLI) | payer MEDICARE, OTHER, SELFPAY ==
[2020-12-27 09:16] VITALS: BMI 26.4
[2022-01-18 08:59] LABS: Cholesterol 237 mg/dL (140-199); HDL Cholesterol 90 mg/dL (40-60); LDL Cholesterol Calculated 126 mg/dL (<100); Triglycerides 107 mg/dL (35-150)
== END ==
PROVIDERS: PCP Nurse Practitioner; Referring Provider Nurse Practitioner; Visit Provider Nurse Practitioner
DX: E78.1 Pure hyperglyceridemia (principal); E78.2 Mixed hyperlipidemia
CPT/HCPCS: 36415; 80061

== ENCOUNTER → 2023-04-05 10:26 | Outpatient (CLI) | payer MEDICARE, OTHER, SELFPAY ==
[2020-12-27 09:16] VITALS: BMI 26.4
--- NOTE | 2023-04-05 | DI.CT.S_ITS ---
PROCEDURE: CT SINUS SCREEN WO CON INDICATIONS: SINUSITIS TECHNIQUE: Noncontrast 3.0 mm axial images acquired from the frontal sinuses to the mid-sella, with coronal and sagittal reformats. For radiation dose reduction, the following was used: automated exposure control, adjustment of mA and/or kV according to patient size. COMPARISON: None. FINDINGS: Image quality: Excellent. Maxillary Sinuses: No bony remodeling or destruction. There is mild mucosal thickening of the bilateral maxillary sinuses. Ethmoid Air Cells: No bony remodeling or destruction. Mild mucosal thickening of the ethmoid air cells. Sphenoid Sinuses: No bony remodeling or destruction. Sinuses are clear. Frontal Sinuses: No bony remodeling or destruction. Sinuses are clear. Ostiomeatal Complexes: Left ostiomeatal complex is patent. Mucosal thickening is present within the right ostiomeatal complex. No Patti cells. Miscellaneous: Visualized intra-orbital contents are normal. No liliana bullosa or paradoxical turbinate curvature. No nasal septal deviation. IMPRESSION: 1. No findings to suggest acute or chronic sinusitis. Mild mucosal thickening of the bilateral maxillary sinuses and ethmoid air cells.. 2. Mucosal thickening at the right ostiomeatal complex. Dictated by: Debbie Licona M.D. on 04/06/2023 at 19:00 Approved by: Debbie Licona M.D. on 04/06/2023 at 19:02
== END ==
PROVIDERS: PCP Nurse Practitioner; Referring Provider Otolaryngology; Visit Provider Otolaryngology
DX: J32.4 Chronic pansinusitis (principal); R51.9 Headache, unspecified
CPT/HCPCS: 70486

== ENCOUNTER → 2023-05-03 10:34 | Outpatient (CLI) | payer MEDICARE, OTHER, SELFPAY ==
[2020-12-27 09:16] VITALS: BMI 26.4
--- NOTE | 2023-05-03 | DI.CT.S_ITS ---
PROCEDURE: CT SINUS SCREEN WO CON INDICATIONS: Chronic pansinusitis TECHNIQUE: Noncontrast 3.0 mm axial images acquired from the frontal sinuses to the mid-sella, with coronal and sagittal reformats. For radiation dose reduction, the following was used: automated exposure control, adjustment of mA and/or kV according to patient size. COMPARISON: [facility], CT, CT SINUS SCREEN WO CON, 04/05/2023, 10:44. FINDINGS: Image quality: Excellent. Maxillary Sinuses: No bony remodeling or destruction. Bilateral mucosal thickening has decreased. Ethmoid Air Cells: No bony remodeling or destruction. Bilateral mucosal thickening has decreased. Sphenoid Sinuses: No bony remodeling or destruction. Sinuses are clear. Frontal Sinuses: No bony remodeling or destruction. Sinuses are clear. Ostiomeatal Complexes: Ostiomeatal complexes are patent. Previously seen right ostiomeatal mucosal thickening has nearly resolved (4/117). No Patti cells. Miscellaneous: Visualized intra-orbital contents are normal. No liliana bullosa or paradoxical turbinate curvature. No nasal septal deviation. IMPRESSION: 1. Compared to CT sinus dated April 05, 2023, mucosal thickening in the bilateral maxillary sinuses and ethmoid air cells as well as right ostiomeatal complex has decreased. 2. No findings to suggest acute or chronic sinusitis. Dictated by: Francy Martinez M.D. on 05/04/2023 at 8:07 Approved by: Francy Martinez M.D. on 05/04/2023 at 8:12
== END ==
LOC: CT 10:35
PROVIDERS: PCP Family Medicine; Referring Provider Otolaryngology; Visit Provider Otolaryngology
DX: J32.4 Chronic pansinusitis (principal); G44.89 Other headache syndrome
CPT/HCPCS: 70486

== ENCOUNTER → 2024-05-31 15:11 | Outpatient (CLI) | payer MEDICARE, OTHER, SELFPAY ==
[2020-12-27 09:16] VITALS: BMI 26.4
--- NOTE | 2024-05-31 15:14 | DI.RAD.S_ITS ---
PROCEDURE: XR SHOULDER RT MIN 2V INDICATIONS: PAIN IN SHOULDER TECHNIQUE: 2 views of the shoulder were acquired. COMPARISON: None. FINDINGS: Bones: No acute fractures or dislocations. No suspicious bony lesions. Visualized ribs appear intact. Healed mid clavicle fracture. Superior subluxation of the humerus. Glenohumeral and acromioclavicular joint space narrowing with associated osteophytosis. Soft tissues: No suspicious soft tissue calcifications. IMPRESSION: Healed mid clavicle fracture. Superior subluxation of the humerus, consistent with prior rotator cuff injury. Moderate shoulder osteoarthritis. Dictated by: Haile Das M.D. on 06/01/2024 at 11:43 Approved by: Haile Das M.D. on 06/01/2024 at 11:44
--- NOTE | 2024-05-31 15:14 | DI.MG.S_ITS ---
BILATERAL DIGITAL SCREENING MAMMOGRAM 3D/2D WITH CAD: 05/31/2024 CLINICAL: Routine screening. Comparison is made to exams dated: 07/13/2021 mammogram, 06/22/2020 mammogram, 06/21/2019 mammogram, 06/22/2020 ultrasound, 06/15/2018 mammogram, and 06/01/2018 mammogram - [facility]. The breasts are heterogeneously dense, which may obscure small masses (category c / 51-75% glandular tissue). Current study was also evaluated with a Computer Aided Detection (CAD) system. There are benign calcifications in both breasts. No significant masses, calcifications, or other findings are seen in either breast. There has been no significant interval change. IMPRESSION: BENIGN There is no mammographic evidence of malignancy. A 1 year screening mammogram is recommended. Based on the Tyrer Cuzick model (a risk assessment model) the patient's lifetime risk is 6.4% and her 10 year risk is 5.8%. According to the ACR, ACS, and NCCN guidelines, an annual breast MRI exam along with mammogram is recommended if the patient's lifetime risk is 20% or greater. This exam was interpreted at Station ID: [id number]. NOTE: For mammograms, a report in lay terms will be sent to the patient. Approximately 15% of breast malignancies will not be visualized mammographically. In the management of a palpable breast mass, a negative mammogram must not discourage biopsy of a clinically suspicious lesion. Electronically Signed By: Ismael trujillo/tamara:06/01/2024 12:43:12 letter sent: Normal Exam ACR BI-RADS Category 2: Benign
== END ==
PROVIDERS: PCP Family Medicine; Referring Provider Family Medicine; Visit Provider Family Medicine
DX: Z12.31 Encounter for screening mammogram for malignant neoplasm of breast (principal); R92.333 Mammographic heterogeneous density, bilateral breasts; S43.001A Unspecified subluxation of right shoulder joint, initial encounter; M19.011 Primary osteoarthritis, right shoulder; R29.898 Other symptoms and signs involving the musculoskeletal system; Z87.81 Personal history of (healed) traumatic fracture
CPT/HCPCS: 73030; 77063; 77067